=== PATIENT | female | born 1940 | race African-American/Black ===

== ENCOUNTER 2017-04-22 00:40 | Emergency (ER) | payer MEDICARE, MEDICAID ==
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
[2017-04-22] MEDS ORDERED: IPRATROPIUM/ALBUTEROL 0.5-2.5 MG/3 ML AMPUL NEB ONE (02:07)
--- NOTE | 2017-04-22 02:08 | RADIOLOGY REPORT (SQ) ---
EXAM DESCRIPTION: CHEST SINGLE VIEW COMPLETED DATE/TIME: 04/22/2017 1:49 am REASON FOR STUDY: SHORTNESS OF BREATH COMPARISON: 08/28/2016, 09/01/2014. 09/17/2015. 11/05/2013. CT, abdomen pelvis 08/30/2014. EXAM PARAMETERS: NUMBER OF VIEWS: One view. TECHNIQUE: Single frontal radiographic view of the chest acquired. RADIATION DOSE: NA LIMITATIONS: None. FINDINGS: LUNGS AND PLEURA: Moderate chronic opacity of the medial right lung base without significa nt interval change since prior radiographs from October 2013. Moderate right lung volume. Mild rig ht hemidiaphragmatic elevation. MEDIASTINUM AND HILAR STRUCTURES: No masses. Contour normal. HEART AND VASCULAR STRUCTURES: Heart normal in size. Normal vasculature. BONES: No acute findings. HARDWARE: None in the chest. OTHER: No other significant finding. IMPRESSION: No acute cardiopulmonary findings. TECHNICAL DOCUMENTATION: JOB ID: [id number]
[2017-04-22] MEDS ORDERED: PREDNISONE 20 MG TABLET PO ONE (02:35)
[2017-04-22] MEDS ORDERED: ALBUTEROL SULFATE 0.083% NEB 2.5 MG/3 ML AMPUL NEB ONE (02:35)
[2017-04-22 03:37] LABS: ABSOLUTE BASOPHILS # (AUTO) 0.1 10^3/uL (0.0-0.2); ABSOLUTE EOSINOPHILS # (AUTO) 0.7 10^3/uL (0.0-0.6); ABSOLUTE LYMPHOCYTES (AUTO) 2.1 10^3/uL (0.5-4.7); ABSOLUTE MONOCYTES (AUTO) 1.2 10^3/uL (0.1-1.4); ABSOLUTE NEUT (AUTO) 12.4 10^3/uL (1.7-8.2); BASOPHILS % (AUTO) 0.8 % (0-2); EOSINOPHILS % (AUTO) 4.2 % (0-6); HEMATOCRIT 40.4 % (36.0-47.0); HEMOGLOBIN 12.4 g/dL (12.0-15.5); HGB HCT DIFFERENCE -3.2; LYMPHOCYTES % (AUTO) 12.7 % (13-45); MEAN CORPUSCULAR HEMOGLOBIN 26.2 pg (27.0-33.4); MEAN CORPUSCULAR HGB CONC 30.8 g/dL (32.0-36.0); MEAN CORPUSCULAR VOLUME 85 fl (80-97); MONOCYTES % (AUTO) 7.2 % (3-13); RED BLOOD COUNT 4.75 10^6/uL (3.72-5.28); RED CELL DISTRIBUTION WIDTH 17.4 % (11.5-14.0); SEGMENTED NEUTROPHILS % (AUTO) 75.1 % (42-78); WHITE BLOOD COUNT 16.5 10^3/uL (4.0-10.5)
[2017-04-22 04:05] LABS: CREATINE KINASE MB 2.41 ng/mL (<4.55)
[2017-04-22 04:08] LABS: TROPONIN I 0.135 ng/mL
[2017-04-22 04:13] LABS: ALANINE AMINOTRANSFERASE 23 U/L (9-52); ALBUMIN 3.7 g/dL (3.5-5.0); ALKALINE PHOSPHATASE 100 U/L (38-126); ANION GAP 9 (5-19); ASPARTATE AMINO TRANSFERASE 25 U/L (14-36); BILIRUBIN,DIRECT 0.3 mg/dL (0.0-0.4); BILIRUBIN,TOTAL 0.3 mg/dL (0.2-1.3); BLOOD UREA NITROGEN 20 mg/dL (7-20); CARBON DIOXIDE 38 mmol/L (22-30); CHLORIDE 98 mmol/L (98-107); CREATINE KINASE 92 U/L (30-135); CREATININE RESULT 0.86 mg/dL (0.52-1.25); GLUCOSE 144 mg/dL (75-110); POTASSIUM 4.2 mmol/L (3.6-5.0); SODIUM 145.2 mmol/L (137-145); TOTAL PROTEIN 7.4 g/dL (6.3-8.2)
[2017-04-22] MEDS ORDERED: ALBUTEROL SULFATE HFA (90 MCG/PUFF) 8 GM MDI (1 MDI/ER DISP) IH PRN (04:56)
[2017-04-22 06:44] LABS: APPEARANCE,URINE SLIGHTLY-CLOUDY; BILIRUBIN,URINE NEGATIVE (NEGATIVE); CALCIUM OXALATE CRYSTALS,URINE RARE /HPF; GLUCOSE, URINE NEGATIVE (NEGATIVE); KETONES,URINE NEGATIVE (NEGATIVE); LEUKOCYTE ESTERASE,URINE NEGATIVE (NEGATIVE); NITRITE,URINE NEGATIVE (NEGATIVE); PROTEIN,URINE NEGATIVE (NEGATIVE); URINE SPECIFIC GRAVITY 1.014; UROBILINOGEN,URINE NEGATIVE mg/dL (<2.0)
[2017-04-22 07:34] VITALS: BP 141/87
--- NOTE | 2017-04-22 10:05 | EKG REPORT ---
SEVERITY:- ABNORMAL ECG - SINUS RHYTHM NONSPECIFIC IVCD WITH LAD LEFT VENTRICULAR HYPERTROPHY : Confirmed by: Tong Amaya 22-Apr-2017 10:04:46
== END 2017-04-22 07:50 | disposition home or self-care (01) ==
LOC: ER 00:40
DX: T59.811A Toxic effect of smoke, accidental (unintentional), initial encounter (principal); J70.5 Respiratory conditions due to smoke inhalation; J44.1 Chronic obstructive pulmonary disease with (acute) exacerbation; R74.8 Abnormal levels of other serum enzymes; Y93.G3 Activity, cooking and baking; Y92.009 Unspecified place in unspecified non-institutional (private) residence as the place of occurrence of the external cause; I50.9 Heart failure, unspecified; E03.9 Hypothyroidism, unspecified; I11.0 Hypertensive heart disease with heart failure; Z99.81 Dependence on supplemental oxygen; Z88.6 Allergy status to analgesic agent
CPT/HCPCS: 93005; 94640 ×2; 99285; 36415; 82553; 82550; 85025; 80053; 81001; 84484; 83880; 71010; 93010; A9270 ×3; J3490; J7512; J7620

== ENCOUNTER 2017-09-05 18:15 | Emergency (ER) | payer MEDICARE, MEDICAID ==
--- NOTE | 2017-09-05 20:54 | RADIOLOGY REPORT (SQ) ---
EXAM DESCRIPTION: CHEST SINGLE VIEW COMPLETED DATE/TIME: 09/05/2017 8:45 pm REASON FOR STUDY: shortness of breath COMPARISON: 08/28/2016 in 06/12/2014 EXAM PARAMETERS: NUMBER OF VIEWS: One view. TECHNIQUE: Single frontal radiographic view of the chest acquired. RADIATION DOSE: NA LIMITATIONS: None. FINDINGS: LUNGS AND PLEURA: Stable chronic lung change without new opacities, masses or pneumothorax . No pleural effusion. MEDIASTINUM AND HILAR STRUCTURES: No masses. Contour stable. HEART AND VASCULAR STRUCTURES: Heart stable in size. Normal vasculature. BONES: No acute findings. HARDWARE: None in the chest. OTHER: No other significant finding. IMPRESSION: NO ACUTE CARDIOPULMONARY PROCESS. NO SIGNIFICANT CHANGE FROM PRIOR STUDY. TECHNICAL DOCUMENTATION: JOB ID: [id number]
[2017-09-05 22:25] LABS: ABSOLUTE BASOPHILS # (AUTO) 0.1 10^3/uL (0.0-0.2); ABSOLUTE EOSINOPHILS # (AUTO) 0.6 10^3/uL (0.0-0.6); ABSOLUTE LYMPHOCYTES (AUTO) 1.8 10^3/uL (0.5-4.7); ABSOLUTE NEUT (AUTO) 6.9 10^3/uL (1.7-8.2); BASOPHILS % (AUTO) 0.6 % (0-2); EOSINOPHILS % (AUTO) 5.7 % (0-6); HEMATOCRIT 39.7 % (36.0-47.0); HEMOGLOBIN 12.6 g/dL (12.0-15.5); HGB HCT DIFFERENCE -1.9; LYMPHOCYTES % (AUTO) 17.6 % (13-45); MEAN CORPUSCULAR HEMOGLOBIN 27.2 pg (27.0-33.4); MEAN CORPUSCULAR HGB CONC 31.8 g/dL (32.0-36.0); MEAN CORPUSCULAR VOLUME 86 fl (80-97); MONOCYTES % (AUTO) 9.2 % (3-13); RED BLOOD COUNT 4.64 10^6/uL (3.72-5.28); RED CELL DISTRIBUTION WIDTH 16.6 % (11.5-14.0); SEGMENTED NEUTROPHILS % (AUTO) 66.9 % (42-78); WHITE BLOOD COUNT 10.4 10^3/uL (4.0-10.5)
--- NOTE | 2017-09-05 23:10 | ER Document Report ---
ED General - General Chief Complaint: Breathing Difficulty Stated Complaint: DIFFICULTY BREATHING Time Seen by Provider: 09/05/17 23:08 Notes: Patient is a pleasant 68-year-old female who has been having cough for a week. She does have history of COPD. She has history of recurrent bronchitis. She does wear 2 L of oxygen at home. She says she has some pain with coughing. No fevers. No vomiting. No diarrhea. No abdominal pain. No other complaints at this time. TRAVEL OUTSIDE OF THE [place] IN LAST 30 DAYS: No - Related Data Allergies/Adverse Reactions: acetaminophen [From Percocet] Adverse Reaction (Verified 09/05/17 18:18) oxycodone HCl [From Percocet] Adverse Reaction (Verified 09/05/17 18:18) Past Medical History - Social History Smoking Status: Former Smoker Frequency of alcohol use: None Drug Abuse: None Family History: None, CAD, COPD, DM, Hypertension, Malignancy Patient has suicidal ideation: No Patient has homicidal ideation: No - Past Medical History Cardiac Medical History: Reports: Hx Congestive Heart Failure, Hx Hypercholesterolemia, Hx Hypertension Denies: Hx Coronary Artery Disease, Hx Heart Attack Pulmonary Medical History: Reports: Hx COPD, Hx Sleep Apnea Denies: Hx Asthma, Hx Bronchitis, Hx Pneumonia, Hx Tuberculosis Neurological Medical History: Denies: Hx Cerebrovascular Accident, Hx Seizures Endocrine Medical History: Reports: Hx Hypothyroidism Renal/ Medical History: Denies: Hx Peritoneal Dialysis GI Medical History: Reports: Hx Gastroesophageal Reflux Disease Musculoskeltal Medical History: Reports Hx Arthritis, Reports Hx Gout Psychiatric Medical History: Denies: Hx Depression Past Surgical History: Reports: Hx Cholecystectomy, Hx Hysterectomy. Denies: Hx Pacemaker - Immunizations Immunizations up to date: No Hx Diphtheria, Pertussis, Tetanus Vaccination: Yes Review of Systems - Review of Systems Notes: My Normal Review Basic REVIEW OF SYSTEMS: CONSTITUTIONAL : Denies fever, chills, or sweats. EENT: Denies eye, ear, throat, or mouth pain or symptoms. Denies nasal or sinus congestion. CARDIOVASCULAR: Denies chest pain. RESPIRATORY: Coughing and some shortness of breath. GASTROINTESTINAL: Denies abdominal pain. Denies nausea, vomiting, or diarrhea. Denies constipation. Last BM: MUSCULOSKELETAL: Denies neck or back pain or joint pain or swelling. SKIN: Denies rash or skin lesions. NEUROLOGICAL: Denies altered mental status or loss of consciousness. Denies headache. Denies weakness or paralysis or loss of use of either side. Denies problems with gait or speech. Denies sensory or motor loss. ALL OTHER SYSTEMS REVIEWED AND NEGATIVE. Physical Exam - Vital signs Vitals: Temp Pulse Resp BP Pulse Ox 99.1 F 88 20 151/75 H 93 09/05/17 18:18 09/05/17 18:18 09/05/17 18:18 09/05/17 18:18 09/05/17 18:18 - Notes Notes: General Appearance: Well nourished, alert, cooperative, no acute distress, no obvious discomfort. Well-appearing. Her cough on exam. Vitals: reviewed, See vital signs table. Head: no swelling or tenderness to the head Eyes: PERRL, EOMI, Conjuctiva clear Mouth: No decreasd moisture Throat: No tonsillar inflammation, No airway obstruction, No lymphadenopathy Lungs: Some mild wheezing in the right base. Remainder of lung sandoval are completely clear. Heart: Normal rate, Regular rythm, No murmur, no rub Abdomen: Normal BS, soft, No rigidity, No abdominal tenderness, No guarding, no rebound, no abdominal masses, no organomegaly Extremities: strength 5/5 in all extremities, good pulses in all extremities, pain with range of motion of both knees. No redness or acute swelling to the knees., no edema. Skin: warm, dry, appropriate color, no rash Neuro: speech clear, oriented x 3, normal affect, responds appropriately to questions. Course - Re-evaluation Re-evalutation: 09/06/17 05:41 Patient has what appears to be bronchitis. She also complains of some chronic knee pain in both knees. She says that she has arthritis in her knees been bothering for a long time. She said that she took Tylenol at home for pain but is not helping request something a little stronger. Placed on Ultram at half dose. Also will place her on steroids for her bronchitis. I did give her magnesium and submental here and she says she feels much improved. Chest x-ray is negative for pneumonia however she does have some focal wheezes on the right base. I will therefore place her on azithromycin. I will discharge her home but encouraged her follow-up with your doctor on Friday. I encouraged her return to ER immediately if she is worsening difficulty breathing, fevers, wheezing, or she feels unwell. Patient agrees with plan will be discharged home. Dictation of this chart was performed using voice recognition software; therefore, there may be some unintended grammatical errors. - Vital Signs Vital signs: Temp Pulse Resp BP Pulse Ox 99.1 F 88 15 147/91 H 96 09/05/17 18:18 09/05/17 18:18 09/06/17 02:00 09/06/17 02:00 09/06/17 02:00 - Laboratory Result Diagrams: 09/05/17 22:07 09/05/17 23:18 Laboratory results interpreted by me: 09/05/17 09/05/17 22:07 23:18 MCHC 31.8 L RDW 16.6 H Chloride 93 L Carbon Dioxide 43 H* - EKG Interpretation by Me Additional EKG results interpreted by me: 09/05/17 23:10 EKG is reviewed and interpreted by me. EKG shows normal sinus rhythm with rate of [address] segment elevation or depression. 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 No ischemic T-wave inversions. DC interval is within normal range. QRS duration QTc intervals are prolonged. Old EKG for comparison is from April 22, 2017. Discharge - Discharge Clinical Impression: Bronchitis Knee pain, chronic Qualifiers: Laterality: bilateral Qualified Code(s): M25.561 - Pain in right knee Condition: Good Disposition: HOME, SELF-CARE Additional Instructions: BRONCHITIS WITH BRONCHOSPASM (WHEEZING): You have bronchitis with bronchospasm (wheezing). Sometimes people develop wheezing with a chest cold. This occurs either because of an underlying tendency toward asthma or because the virus itself irritates the bronchial tubes. This irritation causes cough, shortness of breath, and wheezing. Emergency treatment of bronchospasm may include adrenaline shots or bronchodilator aerosol. You may feel lightheaded and have a rapid pulse for an hour or two. Rest and get plenty of fluids. At home, we'll treat you with a bronchodilator inhaler. Corticosteroids may be required for some patients. Until you recover, avoid chemical fumes, dusts, pollens, and exercising in very cold or dry air. If you smoke, stop now! Most cases of bronchitis get better without antibiotics. We prescribe antibiotics when we believe bacteria are damaging your airways, or if there's high risk the bronchitis will worsen into pneumonia. Increase your fluid intake. A cool mist humidifier may make your lungs more comfortable. An expectorant (cough medicine that loosens phlegm) can help. Repeated episodes of bronchitis and bronchospasm may result in lung damage -- for example, chronic bronchitis, recurrent pneumonias, or emphysema. If you develop a fever, increased wheezing, chest pain, or severe shortness of breath, you should contact the doctor immediately. DECONGESTANT MEDICATION: A decongestant medicine has been prescribed. Often this medicine is combined in the same tablet with an antihistamine or expectorant. This type of medicine is helpful in treating a bad cold or sinus condition, as well as in treatment of the nasal congestion of hay fever. It is not of much benefit for lung infections. Decongestant medicines are related to stimulants. They can cause an increase in blood pressure and heart rate. Persons with heart disease and high blood pressure should not take decongestants without discussing this with the physician. If you develop palpitations, chest pain, headache, or tremors, stop the medicine and consult your physician. STEROID MEDICATION: You have been given an injection of or oral medicine of the cortisone/ steroid class. This medication is used to control inflammation or allergy. Constantine t is usually only given for a short period of time, until the acute process subsides. There are usually no side effects from short-term use of cortisone-like medications. Some persons feel an increased sense of well-being and are not sleepy at bedtime. Long-term use of cortisone medications is best avoided, unless required for a severe condition. If your condition does not remit, or relapses after the course of corticosteroid medication, you should consult your physician. ANTIBIOTIC THERAPY: You have been given an antibiotic prescription. It's important that you take all the medication, unless instructed otherwise by your physician. Failure to complete the entire course can result in relapse of your condition. Common side effects of antibiotics include nausea, intestinal cramping, or diarrhea. Women may develop vaginal yeast infections, and babies can get yeast (thrush) in the mouth following the use of antibiotics. Contact your physician if you develop significant side effects from this medication. Allergy to this antibiotic can result in hives, wheezing, faintness, or itching. If symptoms of allergy occur, stop the medication and call your doctor. AZITHROMYCIN: Azithromycin (Zithromax) is a broad spectrum antibiotic in the same class as erythromycin. It can treat a variety of bacterial infections, but is most frequently used for respiratory infections. Azithromycin is extremely long-lasting. It accumulates in body tissues and continues to kill bacteria for many days. In order to improve absorption, Azithromycin should be taken at least one hour before or two hours after a meal. It does not have the same strong tendency to upset the stomach as erythromycin and is usually very well tolerated. Patients who have had a rash or other true allergic reactions to erythromycin should not take this medication. Call if you develop gastrointestinal distress, severe diarrhea, rash, hives, itching, or shortness of breath. SMOKING: If you smoke, you should stop smoking. The tar and chemicals in cigarette smoke are harmful. Smoking has been shown to cause: emphysema chronic bronchitis lung cancer mouth and throat cancer stomach and pancreas cancer premature aging defects In addition, smoking increases ear and lung infections in children of smokers. FOLLOW-UP CARE: If you have been referred to a physician for follow-up care, call the physician s office for an appointment as you were instructed or within the next two days. If you experience worsening or a significant change in your symptoms, notify the physician immediately or return to the Emergency Department at any time for re-evaluation. Please follow up with your doctor on Friday for reevaluation. I have prescribed prednisone and tessalon perles and azithromycin for your bronchitis. If you have worsening difficulty breathing, coughing, or fevers you should return to the ER immediately. I have also prescribed ultram for your knee pain. Please only take half a tablet every 6 hours. Stop taking this medication if it makes you dizzy, sleepy, or feel unwell. Prescriptions: Tramadol HCl [Ultram 50 mg Tablet] 25 mg PO Q6HP PRN #14 tablet PRN Reason: Azithromycin 250 mg PO DAILY #4 tablet Benzonatate [Tessalon Perle 100 mg Capsule] 100 mg PO ASDIR PRN #14 cap PRN Reason: Cough Prednisone [Deltasone 20 mg Tablet] 2 tab PO DAILY 4 Days tablet
[2017-09-05] MEDS ORDERED: METHYLPREDNISOLONE INJ 125 MG/2 ML SDV IV ONE (23:26)
[2017-09-05] MEDS: MAGNESIUM SULFATE/D5W 1 GM/100 ML RTUPB IV SCH (23:45)
[2017-09-05 23:49] LABS: ALANINE AMINOTRANSFERASE 30 U/L (9-52); ALBUMIN 3.5 g/dL (3.5-5.0); ALKALINE PHOSPHATASE 104 U/L (38-126); ASPARTATE AMINO TRANSFERASE 19 U/L (14-36); BILIRUBIN,DIRECT 0.4 mg/dL (0.0-0.4); BILIRUBIN,TOTAL 0.5 mg/dL (0.2-1.3); BLOOD UREA NITROGEN 15 mg/dL (7-20); CALCIUM 10.1 mg/dL (8.4-10.2); CHLORIDE 93 mmol/L (98-107); CREATINE KINASE 44 U/L (30-135); CREATININE RESULT 0.72 mg/dL (0.52-1.25); GLUCOSE 92 mg/dL (75-110); POTASSIUM 3.9 mmol/L (3.6-5.0); SODIUM 143.8 mmol/L (137-145); TOTAL PROTEIN 6.6 g/dL (6.3-8.2)
[2017-09-05 23:57] LABS: CREATINE KINASE MB 1.06 ng/mL (<4.55)
[2017-09-05 23:59] LABS: ANION GAP 8 (5-19)
[2017-09-06 00:05] LABS: CARBON DIOXIDE 43 mmol/L (22-30)
[2017-09-06] MEDS: MAGNESIUM SULFATE/D5W 1 GM/100 ML RTUPB IV SCH (00:05)
[2017-09-06 00:06] LABS: TROPONIN I 0.113 ng/mL
[2017-09-06] MEDS ORDERED: AZITHROMYCIN 250 MG TABLET PO ONE (02:21)
[2017-09-06 02:28] VITALS: BP 147/91
--- NOTE | 2017-09-06 07:52 | EKG REPORT ---
SEVERITY:- ABNORMAL ECG - SINUS RHYTHM ATRIAL PREMATURE COMPLEX LEFT ANTERIOR FASCICULAR BLOCK PROBABLE LEFT VENTRICULAR HYPERTROPHY CONSIDER ANTERIOR INFARCT : Confirmed by: José Miguel Platt MD 06-Sep-2017 07:52:20
== END 2017-09-06 02:30 | disposition home or self-care (01) ==
LOC: ER 18:15
DX: J40 Bronchitis, not specified as acute or chronic (principal); G89.29 Other chronic pain; M25.561 Pain in right knee; E03.9 Hypothyroidism, unspecified; I50.9 Heart failure, unspecified; E78.00 Pure hypercholesterolemia, unspecified; I11.0 Hypertensive heart disease with heart failure; J44.9 Chronic obstructive pulmonary disease, unspecified; Z90.710 Acquired absence of both cervix and uterus; Z90.49 Acquired absence of other specified parts of digestive tract
CPT/HCPCS: 93005; 99285; 96375; 96365; 36415; 82553; 82550; 85025; 80053; 84484; 83880; 71010; 93010; A9270; J2930; J3475 ×2

== ENCOUNTER 2017-09-09 04:47 | Emergency (ER) | payer MEDICARE, MEDICAID ==
--- NOTE | 2017-09-09 05:13 | ER Document Report ---
ED Medical Screen (RME) - General Chief Complaint: Abdominal Pain Stated Complaint: RIGHT SIDE PAIN TRAVEL OUTSIDE OF THE [place] IN LAST 30 DAYS: No - HPI Notes: 09/09/17 05:11 Patient is a 76-year-old female who presents to the ED complaining of lower right abdominal cramping/ache 1-2 days. Patient states that she feels like she has to have a bowel movement, but has been having difficulties over the last week. Patient states that she has to push and when she does get stool out they are small, hard, and pebbly. Patient states that her last bowel movement was today. The pain does not radiate. Nothing worsens or improves her discomfort. Pt is not taking any narcotics. She has a pmh of COPD, HTN, CHF, YELITZA. Past surgical history of cholecystectomy and hysterectomy. No other concerns or complaints at this time. Otherwise, pt feels well. Denies any headache, fever, URI, sore throat, chest pain, palpitations, syncope, nausea/ vomiting/diarrhea, urinary retention, dysuria, hematuria, back pain, loss of control of bowel or bladder, numbness/tingling, saddle anesthesia, muscle paralysis/weakness, or rash. I have treated and performed a rapid initial assessment of this patient. A comprehensive ED assessment and evaluation of the patient, analysis of test results and completion of medical decision making process will be conducted by additional ED providers. - Related Data Allergies/Adverse Reactions: oxycodone HCl [From Percocet] Adverse Reaction (Verified 09/09/17 05:01) Past Medical History - Past Medical History Cardiac Medical History: Reports: Hx Congestive Heart Failure, Hx Hypercholesterolemia, Hx Hypertension Denies: Hx Coronary Artery Disease, Hx Heart Attack Pulmonary Medical History: Reports: Hx COPD, Hx Sleep Apnea Denies: Hx Asthma, Hx Bronchitis, Hx Pneumonia, Hx Tuberculosis Neurological Medical History: Denies: Hx Cerebrovascular Accident, Hx Seizures Endocrine Medical History: Reports: Hx Hypothyroidism Renal/ Medical History: Denies: Hx Peritoneal Dialysis GI Medical History: Reports: Hx Gastroesophageal Reflux Disease Musculoskeltal Medical History: Reports Hx Arthritis, Reports Hx Gout Psychiatric Medical History: Denies: Hx Depression Past Surgical History: Reports: Hx Cholecystectomy, Hx Hysterectomy. Denies: Hx Pacemaker - Immunizations Immunizations up to date: No Hx Diphtheria, Pertussis, Tetanus Vaccination: Yes Physical Exam - Vital signs Vitals: Temp Pulse Resp BP Pulse Ox 97.9 F 63 22 H 191/94 H 91 L 09/09/17 04:51 09/09/17 04:51 09/09/17 04:51 09/09/17 04:51 09/09/17 04:51 - Respiratory Respiratory status: No respiratory distress Breath sounds: Decreased air movement - Cardiovascular Rhythm: Regular Heart sounds: Normal auscultation - Abdominal Inspection: Obese Distension: No distension Bowel sounds: Normal Tenderness: Nontender. No: McBurney's point, Guarding - Extremities Ankle: Edema - 1+ b/l Course - Vital Signs Vital signs: Temp Pulse Resp BP Pulse Ox 97.9 F 63 22 H 191/94 H 91 L 09/09/17 04:51 09/09/17 04:51 09/09/17 04:51 09/09/17 04:51 09/09/17 04:51
[2017-09-09 05:40] LABS: ALANINE AMINOTRANSFERASE 25 U/L (9-52); ALBUMIN 3.8 g/dL (3.5-5.0); ALKALINE PHOSPHATASE 111 U/L (38-126); ASPARTATE AMINO TRANSFERASE 18 U/L (14-36); BILIRUBIN,DIRECT 0.3 mg/dL (0.0-0.4); BILIRUBIN,TOTAL 0.4 mg/dL (0.2-1.3); BLOOD UREA NITROGEN 22 mg/dL (7-20); CALCIUM 10.2 mg/dL (8.4-10.2); CHLORIDE 92 mmol/L (98-107); CREATININE RESULT 0.82 mg/dL (0.52-1.25); GLUCOSE 135 mg/dL (75-110); LIPASE 45.5 U/L (23-300); POTASSIUM 3.9 mmol/L (3.6-5.0); SODIUM 143.7 mmol/L (137-145); TOTAL PROTEIN 6.9 g/dL (6.3-8.2)
[2017-09-09 05:47] LABS: ANION GAP 10 (5-19)
[2017-09-09 05:49] LABS: CARBON DIOXIDE 42 mmol/L (22-30)
[2017-09-09 05:50] LABS: ABSOLUTE LYMPHOCYTES (AUTO) 1.4 10^3/uL (0.5-4.7); ABSOLUTE MONOCYTES (AUTO) 1.5 10^3/uL (0.1-1.4); ABSOLUTE NEUT (AUTO) 12.1 10^3/uL (1.7-8.2); BASOPHILS % (AUTO) 0.3 % (0-2); EOSINOPHILS % (AUTO) 0.1 % (0-6); HEMATOCRIT 38.7 % (36.0-47.0); HEMOGLOBIN 12.4 g/dL (12.0-15.5); HGB HCT DIFFERENCE -1.5; LYMPHOCYTES % (AUTO) 9.5 % (13-45); MEAN CORPUSCULAR HEMOGLOBIN 27.1 pg (27.0-33.4); MEAN CORPUSCULAR HGB CONC 32.1 g/dL (32.0-36.0); MEAN CORPUSCULAR VOLUME 84 fl (80-97); RED BLOOD COUNT 4.58 10^6/uL (3.72-5.28); RED CELL DISTRIBUTION WIDTH 16.6 % (11.5-14.0); SEGMENTED NEUTROPHILS % (AUTO) 80.1 % (42-78); WHITE BLOOD COUNT 15.1 10^3/uL (4.0-10.5)
--- NOTE | 2017-09-09 06:40 | RADIOLOGY REPORT (SQ) ---
EXAM DESCRIPTION: ACUTE ABDOMEN SERIES COMPLETED DATE/TIME: 09/09/2017 6:21 am REASON FOR STUDY: constipation COMPARISON: Chest x-ray 09/05/2017. CT abdomen and pelvis 08/30/2014. NUMBER OF VIEWS: Three views. TECHNIQUE: Frontal chest, supine abdomen and upright/decubitus abdomen radiographic images acquired. LIMITATIONS: None. FINDINGS: CHEST: Lungs clear of infiltrates. There is elevation of the right hemidiaphragm. FREE AIR: None. BOWEL GAS PATTERN: Nonobstructive pattern. No dilated loops or air fluid levels. CALCIFICATIONS: No suspicious calcifications. HARDWARE: None in the abdomen. SOFT TISSUES: No gross mass or suggestion of organomegaly. BONES: Degenerative changes in the spine . IMPRESSION: Nonobstructive bowel gas pattern. TECHNICAL DOCUMENTATION: JOB ID: [id number] [employer]- All Rights Reserved
[2017-09-09] MEDS ORDERED: MAGNESIUM CITRATE 296 ML BOTTLE PO ONE (06:50)
[2017-09-09] MEDS ORDERED: ONDANSETRON ODT 4 MG TAB (6 TAB/DSPK) PO PRN (06:50)
--- NOTE | 2017-09-09 07:12 | ER Document Report ---
ED General - General Chief Complaint: Abdominal Pain Stated Complaint: RIGHT SIDE PAIN Time Seen by Provider: 09/09/17 06:06 TRAVEL OUTSIDE OF THE [place] IN LAST 30 DAYS: No - HPI Patient complains to provider of: Right-sided abdominal pain constipation Notes: Patient coming in for evaluation of right-sided abdominal pain ongoing for the last 2 days. Denies any fevers chills nausea vomiting diarrhea. Patient states last time she had a bowel movement had hard stool. Patient is concerned that she is constipated. Patient states recently seen for bronchitis placed on antibiotics and steroids.Upon my evaluation patient points to the right flank region for her pain. Denies any dysuria denies any history of kidney stones. - Related Data Allergies/Adverse Reactions: oxycodone HCl [From Percocet] Adverse Reaction (Verified 09/09/17 05:01) Past Medical History - Social History Smoking Status: Unknown if Ever Smoked Family History: None, CAD, COPD, DM, Hypertension, Malignancy Patient has suicidal ideation: No Patient has homicidal ideation: No - Past Medical History Cardiac Medical History: Reports: Hx Congestive Heart Failure, Hx Hypercholesterolemia, Hx Hypertension Denies: Hx Coronary Artery Disease, Hx Heart Attack Pulmonary Medical History: Reports: Hx COPD, Hx Sleep Apnea Denies: Hx Asthma, Hx Bronchitis, Hx Pneumonia, Hx Tuberculosis Neurological Medical History: Denies: Hx Cerebrovascular Accident, Hx Seizures Endocrine Medical History: Reports: Hx Hypothyroidism Renal/ Medical History: Denies: Hx Peritoneal Dialysis GI Medical History: Reports: Hx Gastroesophageal Reflux Disease Musculoskeltal Medical History: Reports Hx Arthritis, Reports Hx Gout Psychiatric Medical History: Denies: Hx Depression Past Surgical History: Reports: Hx Cholecystectomy, Hx Hysterectomy. Denies: Hx Pacemaker - Immunizations Immunizations up to date: No Hx Diphtheria, Pertussis, Tetanus Vaccination: Yes Review of Systems - Review of Systems Constitutional: No symptoms reported EENT: No symptoms reported Cardiovascular: No symptoms reported Respiratory: No symptoms reported Gastrointestinal: Abdominal pain, Constipation Genitourinary: No symptoms reported Female Genitourinary: No symptoms reported Musculoskeletal: No symptoms reported Skin: No symptoms reported Hematologic/Lymphatic: No symptoms reported Neurological/Psychological: No symptoms reported -: Yes All other systems reviewed and negative Physical Exam - Vital signs Vitals: Temp Pulse Resp BP Pulse Ox 97.9 F 63 22 H 191/94 H 91 L 09/09/17 04:51 09/09/17 04:51 09/09/17 04:51 09/09/17 04:51 09/09/17 04:51 Interpretation: Normal - General General appearance: Appears well, Alert - HEENT Head: Normocephalic, Atraumatic Eyes: Normal Pupils: PERRL - Respiratory Respiratory status: No respiratory distress Chest status: Nontender Breath sounds: Normal Chest palpation: Normal - Cardiovascular Rhythm: Regular Heart sounds: Normal auscultation Murmur: No - Abdominal Inspection: Normal Distension: No distension Bowel sounds: Normal Tenderness: Nontender, Rebound. No: McBurney's point, Donnelly's sign, Guarding Organomegaly: No organomegaly - Back Back: Normal, Nontender - Extremities General upper extremity: Normal inspection, Nontender, Normal color, Normal ROM , Normal temperature General lower extremity: Normal inspection, Nontender, Normal color, Normal ROM , Normal temperature, Normal weight bearing. No: Dale's sign - Neurological Neuro grossly intact: Yes Cognition: Normal Orientation: AAOx4 [place] Coma Scale Eye Opening: Spontaneous [place] Coma Scale Verbal: Oriented [place] Coma Scale Motor: Obeys Commands [place] Coma Scale Total: 15 Speech: Normal Motor strength normal: LUE, RUE, LLE, RLE Sensory: Normal - Psychological Associated symptoms: Normal affect, Normal mood - Skin Skin Temperature: Warm Skin Moisture: Dry Skin Color: Normal Course - Re-evaluation Re-evalutation: 09/09/17 07:09 Patient has elevation in her bicarb however this looks to be chronic. Patient otherwise has no other complaints. AOX4 Patient has a history of COPD is on chronic oxygen therapy at home. Patient also was been recently started on steroids slight leukocytosis however abdominal exam is benign no right lower quadrant tenderness No right upper quadrant tenderness to palpation on examination. 09/09/17 07:11 - Vital Signs Vital signs: Temp Pulse Resp BP Pulse Ox 97.9 F 63 10 L 179/87 H 93 09/09/17 04:51 09/09/17 04:51 09/09/17 06:21 09/09/17 06:21 09/09/17 06:21 - Laboratory Result Diagrams: 09/09/17 05:20 09/09/17 05:20 Laboratory results interpreted by me: 09/09/17 09/09/17 05:20 05:20 WBC 15.1 H RDW 16.6 H Seg Neutrophils % 80.1 H Lymphocytes % 9.5 L Absolute Neutrophils 12.1 H Absolute Monocytes 1.5 H Chloride 92 L Carbon Dioxide 42 H* BUN 22 H Glucose 135 H Discharge - Discharge Clinical Impression: Constipation Qualifiers: Constipation type: unspecified constipation type Qualified Code(s): K59.00 - Constipation, unspecified Condition: Good Disposition: HOME, SELF-CARE Instructions: Abdominal Pain ([facility]), Constipation ([facility]) Additional Instructions: We will give you a bottle of mag citrate to help push just along the right side of the colon to the left side and eventually have a bowel movement. Please drink plenty water after drinking the mag citrate I would only drink half a bottle of mag citrate at this time. He may also use the Zofran provided for any nausea that may occur. Return to the ER symptoms worsen. Referrals: TIAGO JACOB MD [Primary Care Provider] - Follow up as needed
[2017-09-09 07:43] VITALS: BP 173/85
== END 2017-09-09 07:34 | disposition home or self-care (01) ==
LOC: ER 04:47
DX: K59.00 Constipation, unspecified (principal); R10.9 Unspecified abdominal pain; I10 Essential (primary) hypertension; D72.829 Elevated white blood cell count, unspecified; J44.9 Chronic obstructive pulmonary disease, unspecified; Z99.81 Dependence on supplemental oxygen; Z87.19 Personal history of other diseases of the digestive system; Z90.49 Acquired absence of other specified parts of digestive tract
CPT/HCPCS: 99284; 36415; 83690; 85025; 80053; 74022; J3490; A9270

== ENCOUNTER 2018-03-09 10:58 | Day surgery (SDC) | payer MEDICARE, MEDICAID ==
[~2018-03-09 10:58] MED LIST: PROPOFOL INJ 200 MG/20 ML VIAL IV ONE
[2018-03-09 13:26] VITALS: BP 143/87
--- NOTE | 2018-03-09 13:47 | Operative Report ---
Operative Report DATE OF SURGERY: 03/09/18 Operative Report: The risks, benefits and alternatives of the procedure including risks of bleeding, perforation requiring surgery are explained to the patient in detail and informed consent is obtained. The patient is brought back to the endoscopy suite and placed in a left, lateral decubital position. Timeout was called. Propofol medication is administered. A rectal examination is performed which did not reveal any masses, tears or fissures. An Olympus videoscope was inserted into the patient's rectum. The scope was then carefully advanced all the way to the cecum. The cecum is identified by the usual anatomical landmarks including the ileocecal valve and the appendiceal office. The scope was then pulled back via the various segments of the colon including the ascending colon, hepatic flexure, transverse colon, splenic flexure, descending colon and finally in to the rectosigmoid portions of the colon. Retroflexion maneuvers performed. Photodocumentation is obtained. Prep is good. The risks benefits and alternatives of the procedure explained to the patient in detail and informed consent is obtained.A GIF Olympus video scope was inserted into the patient's mouth and hypopharynx, the esophagus is identified intubated and insufflated, the scope was then advanced through the esophagus stomach and duodenum, retroflexion maneuver is done, the esophagus stomach and first and second portions of the duodenum examined PREOPERATIVE DIAGNOSIS: Possible GI bleeding, rectal bleeding POSTOPERATIVE DIAGNOSIS: Inflammation at the ileocecal valve status post biopsy. Internal hemorrhoids. Diverticulosis. Gastritis status post biopsy rule out Helicobacter pylori OPERATION: Colonoscopy with biopsy. EGD with biopsy SURGEON: CONSUELO NAVARRETE ANESTHESIA: LMAC TISSUE REMOVED OR ALTERED: As noted above. COMPLICATIONS: None. ESTIMATED BLOOD LOSS: None. INTRAOPERATIVE FINDINGS: As noted above. PROCEDURE: Patient tolerated procedure well. No immediate postprocedure complications are noted. Patient discharged in good condition. Discharge date 03/09/2018. Discharge diet: Regular. Discharge activity: Regular. 2-3 week follow-up to discuss findings. Patient is instructed to call the office or proceed to the emergency room should there be any further problems or questions. We will wait on pathology.
== END 2018-03-09 13:35 | disposition home or self-care (01) ==
LOC: END 10:58
PROVIDERS: ATTEND Internal Medicine Gastroenterology
PROC: 0DB68ZX Excision of Stomach, Via Natural or Artificial Opening Endoscopic, Diagnostic (ICD-10-PCS; principal; 2018-03-09 14:00)
DX: K52.9 Noninfective gastroenteritis and colitis, unspecified (principal); K57.30 Diverticulosis of large intestine without perforation or abscess without bleeding; K29.50 Unspecified chronic gastritis without bleeding; K64.8 Other hemorrhoids; K92.1 Melena; I10 Essential (primary) hypertension; J44.9 Chronic obstructive pulmonary disease, unspecified; E07.9 Disorder of thyroid, unspecified; Z79.899 Other long term (current) drug therapy; Z79.51 Long term (current) use of inhaled steroids; Z99.81 Dependence on supplemental oxygen
CPT/HCPCS: 43239; 45380; 88342 ×2; 88305 ×2; J2704; 813

== ENCOUNTER 2018-10-13 16:42 | Inpatient (IN) | payer MEDICARE, MEDICAID ==
--- NOTE | 2018-10-13 16:48 | ER Document Report ---
ED Medical Screen (RME) - General Chief Complaint: Shortness Of Breath Stated Complaint: SHORTNESS OF BREATH Time Seen by Provider: 10/13/18 16:47 Notes: Patient is a 75-year-old female with COPD, chronically on 2 L of oxygen by nasal cannula that presents to the emergency department for chief complaint of shortness of breath. Patient's been having increased shortness of breath of the last several days, with cough, using home inhalers without improvement. ROS: Other than noted above, the 12 point review of systems was reviewed with the patient and were negative, all pertinent findings are included in the HPI. PHYSICAL EXAMINATION: Vital signs reviewed. GENERAL: Elderly female, mildly increased work of breathing HEAD: Atraumatic, normocephalic. EYES: Pupils equal round extraocular movements intact, conjunctiva are normal. ENT: Nares patent NECK: Normal range of motion CV: Heart regular rate and rhythm LUNGS: Diminished lung sounds at the bases, mild increased work of breathing Musculoskeletal: Normal range of motion NEUROLOGICAL: Normal speech PSYCH: Normal mood, normal affect. MDM: Patient seen and examined for rapid initial assessment. Vital signs reviewed. A comprehensive ED assessment and evaluation of the patient, analysis of test results and completion of the medical decision making process will be conducted by additional ED providers. *Note is created using voice recognition software and may contain spelling, syntax or grammatical errors. TRAVEL OUTSIDE OF THE [place] IN LAST 30 DAYS: No - Related Data Allergies/Adverse Reactions: oxycodone HCl [From Percocet] Adverse Reaction (Verified 10/13/18 16:43) Past Medical History - Past Medical History Cardiac Medical History: Reports: Hx Congestive Heart Failure, Hx Hypercholesterolemia, Hx Hypertension Denies: Hx Coronary Artery Disease, Hx Heart Attack Pulmonary Medical History: Reports: Hx COPD, Hx Sleep Apnea Denies: Hx Asthma, Hx Bronchitis, Hx Pneumonia, Hx Tuberculosis Neurological Medical History: Denies: Hx Cerebrovascular Accident, Hx Seizures Endocrine Medical History: Reports: Hx Hypothyroidism Renal/ Medical History: Denies: Hx Peritoneal Dialysis GI Medical History: Reports: Hx Gastroesophageal Reflux Disease Musculoskeltal Medical History: Reports Hx Arthritis, Reports Hx Gout Psychiatric Medical History: Denies: Hx Depression Past Surgical History: Reports: Hx Cholecystectomy, Hx Hysterectomy. Denies: Hx Pacemaker - Immunizations Immunizations up to date: No Hx Diphtheria, Pertussis, Tetanus Vaccination: Yes Doctor's Discharge - Discharge Referrals: TIAGO JACOB MD [Primary Care Provider] - Follow up as needed
[2018-10-13] MEDS ORDERED: IPRATROPIUM/ALBUTEROL 0.5-2.5 MG/3 ML AMPUL NEB ONE (16:52)
[2018-10-13] MEDS ORDERED: METHYLPREDNISOLONE INJ 125 MG/2 ML SDV IV ONE (16:52)
[2018-10-13 17:58] LABS: ABSOLUTE BASOPHILS # (AUTO) 0.1 10^3/uL (0.0-0.2); ABSOLUTE EOSINOPHILS # (AUTO) 0.4 10^3/uL (0.0-0.6); ABSOLUTE LYMPHOCYTES (AUTO) 1.3 10^3/uL (0.5-4.7); ABSOLUTE MONOCYTES (AUTO) 0.6 10^3/uL (0.1-1.4); ABSOLUTE NEUT (AUTO) 6.6 10^3/uL (1.7-8.2); EOSINOPHILS % (AUTO) 4.2 % (0-6); HEMATOCRIT 35.2 % (36.0-47.0); HEMOGLOBIN 11.2 g/dL (12.0-15.5); LYMPHOCYTES % (AUTO) 14.7 % (13-45); MEAN CORPUSCULAR HEMOGLOBIN 27.9 pg (27.0-33.4); MEAN CORPUSCULAR HGB CONC 31.8 g/dL (32.0-36.0); MEAN CORPUSCULAR VOLUME 88 fl (80-97); MONOCYTES % (AUTO) 6.5 % (3-13); PLATELET COUNT 218 10^3/uL (150-450); RED BLOOD COUNT 4.01 10^6/uL (3.72-5.28); RED CELL DISTRIBUTION WIDTH 16.2 % (11.5-14.0); SEGMENTED NEUTROPHILS % (AUTO) 73.6 % (42-78); TOTAL CELLS COUNTED % (AUTO) 100 %
--- NOTE | 2018-10-13 17:58 | RADIOLOGY REPORT (SQ) ---
EXAM DESCRIPTION: CHEST SINGLE VIEW COMPLETED DATE/TIME: 10/13/2018 5:42 pm REASON FOR STUDY: hypoxic, short of breath COMPARISON: 09/05/2017 EXAM PARAMETERS: NUMBER OF VIEWS: One view. TECHNIQUE: Single frontal radiographic view of the chest acquired. RADIATION DOSE: NA LIMITATIONS: None. FINDINGS: LUNGS AND PLEURA: Elevated right hemidiaphragm. There is nodule like opacification just a christiano the right hemidiaphragm. This may represent the lower lobe pulmonary vascularity. MEDIASTINUM AND HILAR STRUCTURES: No masses. Contour normal. HEART AND VASCULAR STRUCTURES: Borderline cardiomegaly with no pulmonary edema. BONES: No acute findings. HARDWARE: None in the chest. OTHER: No other significant finding. IMPRESSION: Borderline heart size with no pulmonary edema. Question right lower lobe pulmonary nodu le. This may represent pulmonary vessels. TECHNICAL DOCUMENTATION: JOB ID: [id number] [email or web address]- All Rights Reserved Reading location - IP/workstation name: [email or web address]
[2018-10-13 18:20] LABS: ALANINE AMINOTRANSFERASE 12 U/L (9-52); ALBUMIN 3.6 g/dL (3.5-5.0); ALKALINE PHOSPHATASE 88 U/L (38-126); ASPARTATE AMINO TRANSFERASE 25 U/L (14-36); BILIRUBIN,DIRECT 0.4 mg/dL (0.0-0.4); BILIRUBIN,TOTAL 0.8 mg/dL (0.2-1.3); BLOOD UREA NITROGEN 19 mg/dL (7-20); CALCIUM 9.9 mg/dL (8.4-10.2); CHLORIDE 92 mmol/L (98-107); GLUCOSE 85 mg/dL (75-110); POTASSIUM 4.5 mmol/L (3.6-5.0); SODIUM 142.3 mmol/L (137-145); TOTAL PROTEIN 6.7 g/dL (6.3-8.2)
[2018-10-13 18:36] LABS: ANION GAP 5 (5-19)
[2018-10-13 18:38] LABS: CARBON DIOXIDE 45 mmol/L (22-30); TROPONIN I 0.115 ng/mL
--- NOTE | 2018-10-13 19:15 | ER Document Report ---
ED Respiratory Problem - General Chief Complaint: Shortness Of Breath Stated Complaint: SHORTNESS OF BREATH Time Seen by Provider: 10/13/18 16:47 Notes: Patient brought in by her family because she is having difficulty breathing and shortness of breath since last night. She had a cough during the night, as well. She is having dyspnea with the slightest bit of exertion. Patient has pretty severe COPD and is on oxygen 2 L at home all the time. She does not have asthma. Has had a history of congestive heart failure in the past. In addition to her cough, she is felt short of breath and difficulty breathing. Has not had a fever, however. Has not had any chest pains. PMH: Hypertension, CHF, hypothyroid. COPD. TRAVEL OUTSIDE OF THE [place] IN LAST 30 DAYS: No - Related Data Allergies/Adverse Reactions: oxycodone HCl [From Percocet] Adverse Reaction (Verified 10/13/18 16:43) Past Medical History - Social History Smoking Status: Unknown if Ever Smoked Chew tobacco use (# tins/day): No Frequency of alcohol use: None Drug Abuse: None Family History: None, Reviewed & Not Pertinent, CAD, COPD, DM, Hypertension, Malignancy Patient has suicidal ideation: No Patient has homicidal ideation: No - Past Medical History Cardiac Medical History: Reports: Hx Congestive Heart Failure, Hx Hypercholesterolemia, Hx Hypertension Pulmonary Medical History: Reports: Hx COPD - On home O2 at 2 L/min all the time., Hx Sleep Apnea Endocrine Medical History: Reports: Hx Hypothyroidism GI Medical History: Reports: Hx Gastroesophageal Reflux Disease Musculoskeletal Medical History: Reports Hx Arthritis, Reports Hx Gout Past Surgical History: Reports: Hx Cholecystectomy, Hx Hysterectomy - Immunizations Immunizations up to date: No Hx Diphtheria, Pertussis, Tetanus Vaccination: Yes Review of Systems - Review of Systems Notes: REVIEW OF SYSTEMS: CONSTITUTIONAL : Denies fever. EENT: Denies eye, ear, nose or mouth or throat pain or other symptoms. CARDIOVASCULAR: Denies chest pain. RESPIRATORY: See HPI. GASTROINTESTINAL: Denies abdominal pain or nausea, vomiting, or diarrhea. GENITOURINARY: Denies difficulty or painful urinating, urinary frequency, blood in urine. MUSCULOSKELETAL: Denies back or neck pain. Denies joint pain or swelling. SKIN: Denies rash or skin lesions. NEUROLOGICAL: Denies LOC or altered mental status. Denies headache. Denies sensory loss or motor deficits. ALL OTHER SYSTEMS REVIEWED AND NEGATIVE. Physical Exam - Vital signs Vitals: Temp Pulse Resp BP Pulse Ox 98.6 F 85 18 150/73 H 92 10/13/18 16:42 10/13/18 16:42 10/13/18 16:42 10/13/18 16:42 10/13/18 16:42 Interpretation: Normal Notes: PHYSICAL EXAMINATION: GENERAL: Well-appearing, in no acute distress. Vital signs are all essentially normal. HEAD: Atraumatic, normocephalic. EYES: Pupils equal round and reactive to light, extraocular movements intact. ENT: oropharynx clear without exudates. Moist mucous membranes. NECK: Normal range of motion, supple. LUNGS: Scattered rhonchi and wheezes in both lung sandoval bilaterally. HEART: Regular rate and rhythm without murmurs. ABDOMEN: Soft, nontender. No guarding or rebound. No masses. BACK: No tenderness throughout entire back. EXTREMITIES: Normal range of motion without pain. Trace pitting edema of the shins. No swelling or tenderness and negative Homans bilaterally. NEUROLOGICAL: Normal speech, normal gait. Normal sensory, motor, and reflex exams. Awake, alert, and oriented x3. Cranial nerves normal. PSYCH: Normal mood, normal affect. SKIN: Warm, dry, no rashes. Course - Re-evaluation Re-evalutation: 10/13/18 19:21 Patient's first troponin came back at 0.115. EKG does not show anything that looks like an acute [place]. No STEMI present. 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 Based upon the patient's not having any chest pain, I doubt this is of clinical significance. Patient's bicarbonate level is in the 40s as it has been on many occasions over the years in the past. Still, I feel the patient needs to be observed and repeat her studies as well as treat her COPD exacerbation. I called Dr. Fair, who is on-call for this patient's primary care provider, Dr. Gray and he agrees to admit the patient for observation to [facility]. - Vital Signs Vital signs: Temp Pulse Resp BP Pulse Ox 98.6 F 85 22 H 150/70 H 95 10/13/18 16:54 10/13/18 16:54 10/13/18 17:18 10/13/18 16:54 10/13/18 17:18 - Laboratory Result Diagrams: 10/13/18 17:45 10/13/18 17:45 Laboratory results interpreted by me: 10/13/18 10/13/18 17:45 17:45 Hgb 11.2 L Hct 35.2 L MCHC 31.8 L RDW 16.2 H Chloride 92 L Carbon Dioxide 45 H* - Diagnostic Test Radiology results interpreted by me: 10/13/18 19:24 Chest x-ray without evidence of heart failure or any acute infectious process. - EKG Interpretation by Me EKG shows normal: Sinus rhythm Rate: Normal Rhythm: NSR [place]/QRS: LAHB/LAFB Voltage: Consistant with LVH Critical Care Note - Critical Care Note Total time excluding time spent on procedures (mins): 30 Discharge - Discharge Clinical Impression: COPD exacerbation, COPD (chronic obstructive pulmonary disease) Condition: Stable Disposition: ADMITTED OBSERVATION Admitting Provider: [facility] Admitted: [facility] Referrals: TIAGO JACOB MD [NO LOCAL MD] - Follow up as needed
[2018-10-13] MEDS ORDERED: IPRATROPIUM/ALBUTEROL 0.5-2.5 MG/3 ML AMPUL NEB PRN (19:57)
--- NOTE | 2018-10-13 21:10 | EKG REPORT ---
SEVERITY:- ABNORMAL ECG - SINUS RHYTHM LEFT ANTERIOR FASCICULAR BLOCK PROBABLE LEFT VENTRICULAR HYPERTROPHY CONSIDER ANTERIOR INFARCT : Confirmed by: Sheila Florentino MD 13-Oct-2018 21:09:24
[2018-10-13 22:54] LABS: CREATINE KINASE MB 1.19 ng/mL (<4.55)
[2018-10-13 23:01] LABS: TROPONIN I 0.121 ng/mL
[2018-10-13 23:08] LABS: ARTERIAL BLOOD BASE EXCESS 6.2 mmol/L; ARTERIAL BLOOD O2 SATURATION 74.1 % (94-98); ARTERIAL BLOOD PCO2 66.4 mmHg (35-45); ARTERIAL BLOOD PH 7.33 (7.35-7.45); ARTERIAL BLOOD PO2 43.4 mmHg (80-100)
[2018-10-13 23:09] LABS: ARTERIAL BLOOD FIO2 28%
[2018-10-14] MEDS: METHYLPREDNISOLONE INJ 125 MG/2 ML SDV IV SCH ×3 (02:14→18:03)
[2018-10-14 05:39] LABS: CREATINE KINASE MB 1.4 ng/mL (<4.55)
[2018-10-14 05:43] LABS: TROPONIN I 0.168 ng/mL
[2018-10-14 09:54] LABS: CREATINE KINASE MB 1.81 ng/mL (<4.55)
[2018-10-14 10:00] LABS: TROPONIN I 0.223 ng/mL
[2018-10-14] MEDS ORDERED: (PENDING PHARMACY ID) (Pravastatin Sodium [Pravastatin Sodium] 20 MG) PO SCH (10:00)
[2018-10-14] MEDS: VERAPAMIL HCL 240 MG TABLET.SA PO SCH (10:01)
[2018-10-14] MEDS: FUROSEMIDE 40 MG TABLET PO SCH (10:01)
--- NOTE | 2018-10-14 14:19 | RADIOLOGY REPORT (SQ) ---
EXAM DESCRIPTION: CTA CHEST COMPLETED DATE/TIME: 10/14/2018 1:47 pm REASON FOR STUDY: evaluate for PE COMPARISON: None. TECHNIQUE: CT scan of the chest performed using helical scanning technique with dynamic intravenous contrast injection. Images reviewed with lung, soft tissue and bone windows. Reconstructed coronal and sagittal MPR images reviewed. Additional 3 dimensional post-processing performed to develop Maximal Intensity Projection images (CT P). All images stored on PACS. All CT scanners at this facility use dose modulation, iterative reconstruction, and/or weight based d osing when appropriate to reduce radiation dose to as low as reasonably achievable (ALARA). [facility]: Dose Right [facility]: CareDose [facility]: Dose Right [facility]: Teradose 4D [facility]: LOOKSIMA CONTRAST TYPE AND DOSE: contrast/concentration: Isovue 350.00 mg/ml; Total Contrast Delivered: 75.0 ml; Total Saline Delivered: 110.0 ml Contrast bolus optimized for the pulmonary arteries. Not diagnostic for the aorta. RENAL FUNCTION: BUN 19 creatinine 0.64 RADIATION DOSE: CT Rad equipment meets quality standard of care and radiation dose reduction techniq ues were employed. CTDIvol: 13.2 - 15.4 mGy. DLP: 588 mGy-cm. . LIMITATIONS: None. FINDINGS: LUNGS AND PLEURA: No masses, infiltrates, or pneumothorax. No pleural effusions or pleura l calcifications. AORTA AND GREAT VESSELS: No aneurysm. Contrast bolus not optimized for the aorta. HEART: No pericardial effusion. Moderate to marked coronary artery calcifications. PULMONARY ARTERIES: No emboli visualized in the main pulmonary arteries or the segmental branches. HILAR AND MEDIASTINAL STRUCTURES: No identified masses or abnormal nodes. HARDWARE: None in the chest. UPPER ABDOMEN: No significant findings. Limited exam. THYROID AND OTHER SOFT TISSUES: No masses. No adenopathy. BONES: No acute or significant finding. 3D MIPS: Confirm above findings. OTHER: None. IMPRESSION: No evidence of pulmonary embolus. Coronary atherosclerosis. COMMENT: Quality ID # [id number]: Final reports with documentation of one or more dose reduction techniques (e.g., Automated exposure control, adjustment of the mA and/or kV according to patient size, use of iterative reconstruction technique) TECHNICAL DOCUMENTATION: JOB ID: [id number] [employer]- All Rights Reserved Reading location - IP/workstation name: [email or web address]
--- NOTE | 2018-10-14 15:48 | EKG REPORT ---
SEVERITY:- ABNORMAL ECG - SINUS RHYTHM VENTRICULAR PREMATURE COMPLEX NONSPECIFIC IVCD WITH LAD LEFT VENTRICULAR HYPERTROPHY PROBABLE ANTERIOR INFARCT : Confirmed by: Sheila Florentino MD 14-Oct-2018 15:48:12
[2018-10-14 16:29] LABS: CREATINE KINASE MB 2.24 ng/mL (<4.55)
[2018-10-14 16:49] LABS: TROPONIN I 0.236 ng/mL
[2018-10-14] MEDS ORDERED: ASPIRIN 81 MG TABLET, CHEWABLE PO ONE (17:04)
[2018-10-14 17:39] LABS: FREE T3 1.92 pg/mL (2.77-5.27); FREE T4 (FREE THYROXINE) 1.13 ng/dL (0.78-2.19)
[2018-10-14 17:52] LABS: THYROID STIMULATING HORMONE 0.3 uIU/mL (0.47-4.68)
[2018-10-14] MEDS: NITROGLYCERIN 15 MG (0.6 MG/1 HR) PATCH.TD24 TD SCH (18:03)
[2018-10-14] MEDS: ENOXAPARIN SODIUM INJ 100 MG/1 ML DISP.SYRIN SUBCUT SCH (18:03)
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
--- NOTE | 2018-10-14 19:24 | PDOC PROGRESS REPORT ---
Subjective Progress Note for:: 10/14/18 Subjective:: Patient denied any chest pain. She remain on supplemental oxygen via nasal cannula and reported ambulatory in her room without any significant symptom deterioration. Her Troponin level did revealed upward trend so far to 0.168. Reason For Visit: EXACERBATED COPD Physical Exam Vital Signs: Temp Pulse Resp BP Pulse Ox 98.3 F 67 16 143/68 H 92 10/14/18 15:27 10/14/18 15:27 10/14/18 15:27 10/14/18 15:27 10/14/18 15:27 Intake & Output 10/13/18 10/14/18 10/15/18 06:59 06:59 06:59 Intake Total 633 Balance 633 Weight 104.7 kg General appearance: PRESENT: mild distress - on supplemental oxygen via nasal cannula., obese Head exam: PRESENT: atraumatic, normocephalic Eye exam: PRESENT: conjunctiva pink, EOMI, PERRLA. ABSENT: scleral icterus Ear exam: PRESENT: normal external ear exam Mouth exam: PRESENT: moist Respiratory exam: PRESENT: clear to auscultation phililp Cardiovascular exam: PRESENT: RRR. ABSENT: diastolic murmur, rubs, systolic murmur Vascular exam: PRESENT: normal capillary refill. ABSENT: pallor GI/Abdominal exam: PRESENT: normal bowel sounds, soft. ABSENT: distended, guarding, mass, organolmegaly, rebound, tenderness Extremities exam: ABSENT: pedal edema Musculoskeletal exam: PRESENT: normal inspection Neurological exam: PRESENT: alert, awake, oriented to person, oriented to place , oriented to time, oriented to situation, CN II-XII grossly intact. ABSENT: motor sensory deficit Psychiatric exam: PRESENT: appropriate affect, normal mood. ABSENT: homicidal ideation, suicidal ideation Skin exam: PRESENT: dry, intact, warm. ABSENT: cyanosis, rash Results Laboratory Results: 10/13/18 10/14/18 21:45 15:21 Carbonic Acid 2.00 H HCO3/H2CO3 Ratio 17:1 ABG pH 7.33 L ABG pCO2 66.4 H ABG pO2 43.4 L ABG HCO3 34.0 H ABG O2 Saturation 74.1 L ABG Base Excess 6.2 FiO2 28% TSH 0.30 L Free T4 1.13 Free T3 pg/mL 1.92 L 10/13/18 10/13/1818 20:25 22:15 04:09 Creatine Kinase 36 CK-MB (CK-2) Cancelled 1.19 Troponin I Cancelled 0.121 10/14/18 10/14/18 10/14/18 04:09 08:43 08:43 Creatine Kinase 39 CK-MB (CK-2) 1.40 1.81 Troponin I 0.168 0.223 10/14/18 10/14/18 15:21 15:21 Creatine Kinase 41 CK-MB (CK-2) 2.24 Troponin I 0.236 EKG Comments: Severity: Abnormal ECG Sinus rhythm, Ventricular premature complex, Nonspecific IVCD with LAD, Left ventricular hypertrophy, probable anterior infarct. Impressions: Chest X-Ray 10/13/18 16:48 IMPRESSION: Borderline heart size with no pulmonary edema. Question right lower lobe pulmonary nodule. This may represent pulmonary vessels. Chest/Abdomen CTA 10/14/18 00:00 IMPRESSION: No evidence of pulmonary embolus. Coronary atherosclerosis. Assessment & Plan - Diagnosis (1) COPD with acute exacerbation Is this a current diagnosis for this admission?: Yes Plan: Continue bronchodilators therapy. Decrease IV Solu Medrol to 80 mg q8 hours. Maintain on supplemental oxygen via nasal cannula to maintain oxygenation level at or above 92%. (2) NSTEMI (non-ST elevated myocardial infarction) Is this a current diagnosis for this admission?: Yes Plan: Start on Lovenox therapy, Nitroglycerin, and Aspirin therapy. Maintain on lipid lowering medication therapy. cardiology consultant input appreciated. (3) CHF (congestive heart failure) Is this a current diagnosis for this admission?: Yes Plan: Continue current medication management. (4) Hypertension Qualifiers: Hypertension type: essential hypertension Qualified Code(s): I10 - Essential (primary) hypertension Is this a current diagnosis for this admission?: Yes Plan: Continue current medication management. (5) HLD (hyperlipidemia) Qualifiers: Hyperlipidemia type: unspecified Qualified Code(s): E78.5 - Hyperlipidemia , unspecified Is this a current diagnosis for this admission?: Yes Plan: Continue current medication management. (6) Hypothyroidism Qualifiers: Hypothyroidism type: unspecified Qualified Code(s): E03.9 - Hypothyroidism , unspecified Is this a current diagnosis for this admission?: Yes Plan: Continue current medication management. (7) GERD (gastroesophageal reflux disease) Qualifiers: Esophagitis presence: without esophagitis Qualified Code(s): K21.9 - Gastro -esophageal reflux disease without esophagitis Is this a current diagnosis for this admission?: Yes Plan: Continue current medication management. (8) YELITZA (obstructive sleep apnea) Is this a current diagnosis for this admission?: Yes Plan: Continue current medication management. She will need outpatient sleep study upon discharge. - Time Time Spent with patient: 25-34 minutes Medications reviewed and adjusted accordingly: Yes Anticipated discharge: Home with Homehealth Within: Other - Inpatient Certification Based on my medical assessment, after consideration of the patient's comorbidities, presenting symptoms, or acuity I expect that the services needed warrant INPATIENT care.: Yes I certify that my determination is in accordance with my understanding of Medicare's requirements for reasonable and necessary INPATIENT services [42 CFR 412.3e].: Yes Medical Necessity: Need Close Monitoring Due to Risk of Patient Decompensation, Need For IV Fluids, Need For Continuous Telemetry Monitoring, Need for Nebulizer Therapy and Monitoring of Response, Risk of Complication if Not Cared For in Hospital 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
[2018-10-14 19:56] LABS: CREATINE KINASE MB 1.71 ng/mL (<4.55); TROPONIN I 0.26 ng/mL
[2018-10-14] MEDS: SIMVASTATIN 10 MG TABLET PO SCH (21:24)
[2018-10-14] MEDS: MONTELUKAST SODIUM 10 MG TABLET PO SCH (21:29)
[2018-10-15] MEDS: METHYLPREDNISOLONE INJ 125 MG/2 ML SDV IV SCH ×3 (02:38→17:29)
[2018-10-15 02:47] LABS: APPEARANCE,URINE SLIGHTLY-CLOUDY; BILIRUBIN,URINE NEGATIVE (NEGATIVE); COLOR,URINE YELLOW; GLUCOSE, URINE NEGATIVE (NEGATIVE); KETONES,URINE NEGATIVE (NEGATIVE); LEUKOCYTE ESTERASE,URINE NEGATIVE (NEGATIVE); NITRITE,URINE NEGATIVE (NEGATIVE); PROTEIN,URINE NEGATIVE (NEGATIVE); URINE SPECIFIC GRAVITY 1.024; UROBILINOGEN,URINE NEGATIVE mg/dL (<2.0)
[2018-10-15 03:12] LABS: CREATINE KINASE MB 1.79 ng/mL (<4.55)
[2018-10-15 03:16] LABS: TROPONIN I 0.275 ng/mL
[2018-10-15] MEDS: NITROGLYCERIN 50 MG/D5W 250 ML IV PRN (05:07)
[2018-10-15] MEDS: ENOXAPARIN SODIUM INJ 100 MG/1 ML DISP.SYRIN SUBCUT SCH ×2 (05:24→17:29)
[2018-10-15] MEDS: LEVOTHYROXINE SODIUM 0.088 MG TABLET PO SCH (05:25)
[2018-10-15] MEDS ORDERED: VERAPAMIL HCL 240 MG PO SCH (08:00)
--- NOTE | 2018-10-15 09:40 | EKG REPORT ---
SEVERITY:- ABNORMAL ECG - SINUS RHYTHM NONSPECIFIC IVCD WITH LAD LEFT VENTRICULAR HYPERTROPHY PROBABLE ANTERIOR INFARCT, ACUTE : Confirmed by: Sheila Florentino MD 15-Oct-2018 09:40:12
--- NOTE | 2018-10-15 09:40 | EKG REPORT ---
SEVERITY:- ABNORMAL ECG - SINUS RHYTHM LEFT ANTERIOR FASCICULAR BLOCK PROBABLE LEFT VENTRICULAR HYPERTROPHY CONSIDER ANTERIOR INFARCT : Confirmed by: Sheila Florentino MD 15-Oct-2018 09:40:17
[2018-10-15 09:49] LABS: CREATINE KINASE MB 1.54 ng/mL (<4.55); TROPONIN I 0.23 ng/mL
[2018-10-15] MEDS: VERAPAMIL HCL 240 MG TABLET.SA PO SCH (10:30)
[2018-10-15] MEDS: ASPIRIN 81 MG TABLET, CHEWABLE PO SCH (10:30)
[2018-10-15] MEDS: FUROSEMIDE 40 MG TABLET PO SCH (10:30)
[2018-10-15] MEDS: NITROGLYCERIN 15 MG (0.6 MG/1 HR) PATCH.TD24 TD SCH (10:31)
[2018-10-15 17:41] LABS: CREATINE KINASE MB 1.32 ng/mL (<4.55)
[2018-10-15 17:46] LABS: TROPONIN I 0.192 ng/mL
[2018-10-15] MEDS: ACETAMINOPHEN 325 MG TABLET PO PRN ×2 (18:40→22:46)
[2018-10-15] MEDS: SIMVASTATIN 10 MG TABLET PO SCH (21:33)
[2018-10-15] MEDS: MONTELUKAST SODIUM 10 MG TABLET PO SCH (21:33)
--- NOTE | 2018-10-15 21:38 | Progress Note ---
Provider Note Provider Note: CARDIOLOGY PROGRESS NOTES by Dr. Sheila Florentino on 10/15/2018. OBJECTIVE: The patient last night had shortness of breath after walking back from the bathroom. She was also diaphoretic. With the EKG showing recent anterior AL, and with the patient's shortness of breath, although without chest pain or discomfort, but with diaphoresis, Virgin stable O2 saturations at 97% , her topical nitrates was discontinued and the patient was started on IV nitroglycerin. At present denies any chest pain or discomfort. There is no PND orthopnea. Her shortness of breath is much improved. There is no arrhythmias seen on the monitor. Her blood pressure is well controlled. She has mild pedal edema. The patient states that the leg edema is more when she hangs her foot down and the edema is actually less when she wakes up in the morning. Hence this is secondary mostly due to venous insufficiency. She denies any palpitations. There is no arrhythmia seen on the monitor. In spite of the patient having no anginal symptoms. Her repeat EKG done today suggest recent anterior myocardial infarction. The patient's troponin I which peaked at 0.275 is now trending down. In view of the patient's lack of symptoms,, and the patient not being a diabetic. And this T of the chest showing no pulmonary emboli, and moderate to severe coronary artery calcifications, would recommend that the patient undergo her cardiac catheterization, since the patient is not a very good candidate for a stress test. The patient denies wheezing cough or sputum production. There is no hemoptysis. PHYSICAL EXAMINATION: Patient is moderately obese. At present in no acute distress. She is well-groomed. Selected Entries 10/15/18 15:28 Temperature 98.6 F Temperature Oral Source Pulse Rate 68 Respiratory 16 Rate Blood Pressure 124/89 H Blood Pressure 100 Mean BP Location Right Wrist BP Position Supine O2 Sat by Pulse 96 Oximetry Oxygen Flow 3.00 Rate Oxygen Delivery Nasal Cannula Method HEAD: Is atraumatic normocephalic. EYES: Pupils are equal round regular and reactive to light accommodation. Extraocular movements are normal. There is no clinical pallor. There is no scleral icterus. ENT: Is negative. NECK: Is supple. There is no JVD. Carotids are equal there is no bruit. There is no lymphadenopathy. There is no goiter. There is no accessory muscle respiration in use. LUNGS: There is diminished air entry and prolonged expiration. There is no chest wall tenderness. On percussion there is hyperresonance. There is no rhonchi rales or wheezing. HEART S1-S2 is heard there is no S3 gallop there is no S4 gallop there is systolic murmur left sternal border and apex there is no rub abdomen: Is slightly obese nontender there is no hepato-splenomegaly. Bowel sounds are well heard. Extremities: Femorals are diminished. There is no femoral bruits. Leg pulses are diminished. There is mild to trace to mild pedal edema bilaterally. There is no cellulitis or DVT. There is no calf tenderness. There is no clubbing or cyanosis. There is no calf tenderness. CREDIT RISK MANAGER: The patient is conscious awake alert oriented x3 with no focal deficits. PSYCHIATRIC: The patient judgment and insight are intact her affect is normal. 10/14/18 10/15/18 10/15/18 19:20 02:38 02:38 Creatine Kinase 26 L CK-MB (CK-2) 1.71 1.79 Troponin I 0.260 0.275 Stool Occult Blood 10/15/18 10/15/18 10/15/18 08:35 08:35 10:58 Creatine Kinase 27 L CK-MB (CK-2) 1.54 Troponin I 0.230 Stool Occult Blood NEGATIVE 10/15/18 10/15/18 17:00 17:00 Creatine Kinase 26 L CK-MB (CK-2) 1.32 Troponin I 0.192 Stool Occult Blood EKG: Shows sinus rhythm. Left axis deviation. Nonspecific IVCD. Recent anterior wall AL. IMPRESSION/RECOMMENDATION: 1. NON-ST elevation AL: Although the patient is asymptomatic the patient's troponin I is has elevated in the non-ST AL range, and there are EKG changes. The patient last night was started on IV nitroglycerin drip. We will continue this. Continue aspirin. Note that the patient stool occult blood is negative. We will continue full dose Lovenox for another 24 hours. Continue verapamil since the patient COPD will avoid beta-blockers at present. But if the echo shows a depressed LV ejection fraction then will switch onto Toprol-XL.. Will check an echo in the a.m. We will continue to closely monitor patient,. Discussed cardiac catheterization with the patient and patient's daughter. They want it done at [facility] and not here or in [facility]. Since this is a holiday weekend, will set up transfer for on Friday or Friday. 2. Most likely has significant coronary artery disease, with moderate to severe coronary artery calcifications by CT angiogram. 3. Hypertension: Blood pressure well controlled 4. COPD: At present no acute exacerbation. Continue nasal oxygen and anti- COPD treatment. 5. Hypothyroidism.: Continue thyroid replacement. . REMOTE history of smoking elation. This is the reason the patient is now having COPD with dependency on home oxygen. Reviewed medication adjusted. Discussed with Dr. Fair discussed with the patient patient daughter. Medical decision making is of high complexity. Note 40 minutes spent on this patient with more than 50% of time spent in direct patient care. Will follow with you
[2018-10-16] MEDS: METHYLPREDNISOLONE INJ 125 MG/2 ML SDV IV SCH ×3 (01:52→18:05)
[2018-10-16 03:24] LABS: APPEARANCE,URINE SLIGHTLY-CLOUDY; BILIRUBIN,URINE NEGATIVE (NEGATIVE); COLOR,URINE STRAW; GLUCOSE, URINE NEGATIVE (NEGATIVE); KETONES,URINE NEGATIVE (NEGATIVE); LEUKOCYTE ESTERASE,URINE NEGATIVE (NEGATIVE); NITRITE,URINE NEGATIVE (NEGATIVE); PROTEIN,URINE NEGATIVE (NEGATIVE); URINE SPECIFIC GRAVITY 1.011; UROBILINOGEN,URINE NEGATIVE mg/dL (<2.0)
[2018-10-16] MEDS: ENOXAPARIN SODIUM INJ 100 MG/1 ML DISP.SYRIN SUBCUT SCH (05:03)
[2018-10-16] MEDS: LEVOTHYROXINE SODIUM 0.088 MG TABLET PO SCH (05:03)
[2018-10-16] MEDS: NITROGLYCERIN 50 MG/D5W 250 ML IV PRN (05:05)
[2018-10-16 05:31] LABS: HEMATOCRIT 33.6 % (36.0-47.0); HEMOGLOBIN 10.8 g/dL (12.0-15.5); MEAN CORPUSCULAR HEMOGLOBIN 27.6 pg (27.0-33.4); MEAN CORPUSCULAR HGB CONC 32.3 g/dL (32.0-36.0); MEAN CORPUSCULAR VOLUME 85 fl (80-97); PLATELET COUNT 187 10^3/uL (150-450); RED BLOOD COUNT 3.93 10^6/uL (3.72-5.28); RED CELL DISTRIBUTION WIDTH 16.3 % (11.5-14.0); WHITE BLOOD COUNT 10.4 10^3/uL (4.0-10.5)
[2018-10-16] MEDS: VERAPAMIL HCL 240 MG TABLET.SA PO SCH (09:59)
[2018-10-16] MEDS: ASPIRIN 81 MG TABLET, CHEWABLE PO SCH (09:59)
[2018-10-16] MEDS: FUROSEMIDE 40 MG TABLET PO SCH (09:59)
--- NOTE | 2018-10-16 15:34 | PDOC PROGRESS REPORT ---
Subjective Progress Note for:: 10/16/18 Subjective:: Patient is currently doing well Patient was admitted from the shortness of the breath and a COPD and elevated troponin Patient seen by the cardiology and plan to schedule the cardiac catheter Friday Reason For Visit: NSTEMI, EXACERBATED COPD Physical Exam Vital Signs: Temp Pulse Resp BP Pulse Ox 98.4 F 76 19 149/88 H 95 10/16/18 11:48 10/16/18 14:00 10/16/18 11:48 10/16/18 11:48 10/16/18 11:48 Intake & Output 10/15/18 10/16/18 10/17/18 06:59 06:59 06:59 Intake Total 833 1048 189 Output Total 600 800 Balance 233 1048 -611 Weight 105.2 kg 107 kg General appearance: PRESENT: no acute distress, well-developed, well-nourished Head exam: PRESENT: atraumatic, normocephalic Eye exam: PRESENT: conjunctiva pink, EOMI, PERRLA. ABSENT: scleral icterus Ear exam: PRESENT: normal external ear exam Mouth exam: PRESENT: moist, tongue midline Neck exam: PRESENT: full ROM. ABSENT: carotid bruit, JVD, lymphadenopathy, thyromegaly Respiratory exam: PRESENT: clear to auscultation phillip Cardiovascular exam: PRESENT: RRR. ABSENT: diastolic murmur, rubs, systolic murmur Pulses: PRESENT: normal dorsalis pedis pul, +2 pedal pulses bilateral Vascular exam: PRESENT: normal capillary refill GI/Abdominal exam: PRESENT: normal bowel sounds, soft. ABSENT: distended, guarding, mass, organolmegaly, rebound, tenderness Rectal exam: PRESENT: deferred Extremities exam: ABSENT: pedal edema Musculoskeletal exam: PRESENT: ambulatory Neurological exam: PRESENT: alert, awake, oriented to person, oriented to place , oriented to time, oriented to situation, CN II-XII grossly intact. ABSENT: motor sensory deficit Psychiatric exam: PRESENT: appropriate affect, normal mood. ABSENT: homicidal ideation, suicidal ideation Skin exam: PRESENT: dry, intact, warm. ABSENT: cyanosis, rash Results Laboratory Results: 10/16/18 04:37 10/15/18 10/16/18 10/16/18 10:58 03:00 04:37 WBC 10.4 RBC 3.93 Hgb 10.8 L Hct 33.6 L MCV 85 MCH 27.6 MCHC 32.3 RDW 16.3 H Plt Count 187 Urine Color STRAW Urine Appearance SLIGHTLY-CLOUDY Urine pH 6.0 Ur Specific Wilburn 1.011 Urine Protein NEGATIVE Urine Glucose (UA) NEGATIVE Urine Ketones NEGATIVE Urine Blood NEGATIVE Urine Nitrite NEGATIVE Ur Leukocyte Esterase NEGATIVE Urine WBC (Auto) 3 Urine RBC (Auto) 0 Stool Occult Blood NEGATIVE 10/16/18 08:25 WBC RBC Hgb Hct MCV MCH MCHC RDW Plt Count Urine Color Urine Appearance Urine pH Ur Specific Wilburn Urine Protein Urine Glucose (UA) Urine Ketones Urine Blood Urine Nitrite Ur Leukocyte Esterase Urine WBC (Auto) Urine RBC (Auto) Stool Occult Blood NEGATIVE 10/13/18 10/13/18 10/14/18 20:25 22:15 04:09 Creatine Kinase 36 CK-MB (CK-2) Cancelled 1.19 Troponin I Cancelled 0.121 10/14/18 10/14/18 10/14/18 04:09 08:43 08:43 Creatine Kinase 39 CK-MB (CK-2) 1.40 1.81 Troponin I 0.168 0.223 10/14/18 10/14/18 10/14/18 15:21 15:21 19:20 Creatine Kinase 41 39 CK-MB (CK-2) 2.24 Troponin I 0.236 10/14/18 10/15/18 10/15/18 19:20 02:38 02:38 Creatine Kinase 26 L CK-MB (CK-2) 1.71 1.79 Troponin I 0.260 0.275 10/15/18 10/15/18 10/15/18 08:35 08:35 17:00 Creatine Kinase 27 L 26 L CK-MB (CK-2) 1.54 Troponin I 0.230 10/15/18 17:00 Creatine Kinase CK-MB (CK-2) 1.32 Troponin I 0.192 Impressions: Chest X-Ray 10/13/18 16:48 IMPRESSION: Borderline heart size with no pulmonary edema. Question right lower lobe pulmonary nodule. This may represent pulmonary vessels. Chest/Abdomen CTA 10/14/18 00:00 IMPRESSION: No evidence of pulmonary embolus. Coronary atherosclerosis. Assessment & Plan - Diagnosis (1) COPD (chronic obstructive pulmonary disease) Is this a current diagnosis for this admission?: Yes (2) GERD (gastroesophageal reflux disease) Qualifiers: Esophagitis presence: without esophagitis Qualified Code(s): K21.9 - Gastro -esophageal reflux disease without esophagitis Is this a current diagnosis for this admission?: Yes (3) HLD (hyperlipidemia) Qualifiers: Hyperlipidemia type: unspecified Qualified Code(s): E78.5 - Hyperlipidemia , unspecified Is this a current diagnosis for this admission?: Yes (4) NSTEMI (non-ST elevated myocardial infarction) Is this a current diagnosis for this admission?: Yes (5) YELITZA (obstructive sleep apnea) Is this a current diagnosis for this admission?: Yes (6) CHF (congestive heart failure) Is this a current diagnosis for this admission?: Yes (7) Hypertension Qualifiers: Hypertension type: essential hypertension Qualified Code(s): I10 - Essential (primary) hypertension Is this a current diagnosis for this admission?: Yes - Time Time Spent with patient: 15-24 minutes Medications reviewed and adjusted accordingly: Yes Anticipated discharge: Tertiary Hospital Within: Other - Inpatient Certification Based on my medical assessment, after consideration of the patient's comorbidities, presenting symptoms, or acuity I expect that the services needed warrant INPATIENT care.: Yes I certify that my determination is in accordance with my understanding of Medicare's requirements for reasonable and necessary INPATIENT services [42 CFR 412.3e].: Yes Medical Necessity: Significant Comorbidiites Make Outpatient Treatment Too Risky Post 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
[2018-10-16] MEDS: RANOLAZINE 500 MG TAB.SR.12H PO SCH (16:07)
[2018-10-16] MEDS: NITROGLYCERIN 15 MG (0.6 MG/1 HR) PATCH.TD24 TD SCH (16:07)
--- NOTE | 2018-10-16 18:40 | PDOC PROGRESS REPORT ---
Subjective Progress Note for:: 10/15/18 Subjective:: Patient reported right sided facial pain but denied any chest pain or difficulty with breathing. She remain on supplemental oxygen via nasal cannula. Her Troponin level is trending downward on IV nitroglycerin infusion. Reason For Visit: EXACERBATED COPD Physical Exam Vital Signs: Temp Pulse Resp BP Pulse Ox 98.8 F 70 20 140/64 H 99 10/15/18 19:35 10/15/18 19:35 10/15/18 19:35 10/15/18 19:35 10/15/18 19:35 Intake & Output 10/14/18 10/15/18 10/16/18 06:59 06:59 06:59 Intake Total 833 852 Output Total 600 Balance 233 852 Weight 104.7 kg 105.2 kg Physical Exam: General appearance: PRESENT: mild distress - on supplemental oxygen via nasal cannula., obese Head exam: PRESENT: atraumatic, normocephalic Eye exam: PRESENT: conjunctiva pink, EOMI, PERRLA. ABSENT: scleral icterus Ear exam: PRESENT: normal external ear exam Mouth exam: PRESENT: moist Respiratory exam: PRESENT: clear to auscultation phillip Cardiovascular exam: PRESENT: RRR. ABSENT: diastolic murmur, rubs, systolic murmur Vascular exam: PRESENT: normal capillary refill. ABSENT: pallor GI/Abdominal exam: PRESENT: normal bowel sounds, soft. ABSENT: distended, guarding, mass, organomegaly, rebound, tenderness Extremities exam: ABSENT: pedal edema Musculoskeletal exam: PRESENT: normal inspection Neurological exam: PRESENT: alert, awake, oriented to person, oriented to place , oriented to time, oriented to situation, CN II-XII grossly intact. ABSENT: motor sensory deficit Psychiatric exam: PRESENT: appropriate affect, normal mood. ABSENT: homicidal ideation, suicidal ideation Skin exam: PRESENT: dry, intact, warm. ABSENT: cyanosis, rash Results Laboratory Results: 10/15/18 10/15/18 02:20 10:58 Urine Color YELLOW Urine Appearance SLIGHTLY-CLOUDY Urine pH 6.0 Ur Specific Leslie 1.024 Urine Protein NEGATIVE Urine Glucose (UA) NEGATIVE Urine Ketones NEGATIVE Urine Blood LARGE H Urine Nitrite NEGATIVE Ur Leukocyte Esterase NEGATIVE Urine WBC (Auto) 23 Urine RBC (Auto) 76 Stool Occult Blood NEGATIVE 10/13/18 10/13/18 10/14/18 20:25 22:15 04:09 Creatine Kinase 36 CK-MB (CK-2) Cancelled 1.19 Troponin I Cancelled 0.121 10/14/18 10/14/18 10/14/18 04:09 08:43 08:43 Creatine Kinase 39 CK-MB (CK-2) 1.40 1.81 Troponin I 0.168 0.223 10/14/18 10/14/18 10/14/18 15:21 15:21 19:20 Creatine Kinase 41 39 CK-MB (CK-2) 2.24 Troponin I 0.236 10/14/18 10/15/18 10/15/18 19:20 02:38 02:38 Creatine Kinase 26 L CK-MB (CK-2) 1.71 1.79 Troponin I 0.260 0.275 10/15/18 10/15/18 10/15/18 08:35 08:35 17:00 Creatine Kinase 27 L 26 L CK-MB (CK-2) 1.54 Troponin I 0.230 10/15/18 17:00 Creatine Kinase CK-MB (CK-2) 1.32 Troponin I 0.192 Impressions: Chest X-Ray 10/13/18 16:48 IMPRESSION: Borderline heart size with no pulmonary edema. Question right lower lobe pulmonary nodule. This may represent pulmonary vessels. Chest/Abdomen CTA 10/14/18 00:00 IMPRESSION: No evidence of pulmonary embolus. Coronary atherosclerosis. Assessment & Plan - Diagnosis (1) COPD with acute exacerbation Is this a current diagnosis for this admission?: Yes (2) NSTEMI (non-ST elevated myocardial infarction) Is this a current diagnosis for this admission?: Yes (3) CHF (congestive heart failure) Is this a current diagnosis for this admission?: Yes (4) Hypertension Qualifiers: Hypertension type: essential hypertension Qualified Code(s): I10 - Essential (primary) hypertension Is this a current diagnosis for this admission?: Yes (5) HLD (hyperlipidemia) Qualifiers: Hyperlipidemia type: unspecified Qualified Code(s): E78.5 - Hyperlipidemia , unspecified Is this a current diagnosis for this admission?: Yes (6) Hypothyroidism Qualifiers: Hypothyroidism type: unspecified Qualified Code(s): E03.9 - Hypothyroidism , unspecified Is this a current diagnosis for this admission?: Yes (7) GERD (gastroesophageal reflux disease) Qualifiers: Esophagitis presence: without esophagitis Qualified Code(s): K21.9 - Gastro -esophageal reflux disease without esophagitis Is this a current diagnosis for this admission?: Yes (8) YELITZA (obstructive sleep apnea) Is this a current diagnosis for this admission?: Yes - Time Time Spent with patient: 25-34 minutes Medications reviewed and adjusted accordingly: Yes Anticipated discharge: Tertiary Hospital Within: Other - Inpatient Certification Based on my medical assessment, after consideration of the patient's comorbidities, presenting symptoms, or acuity I expect that the services needed warrant INPATIENT care.: Yes I certify that my determination is in accordance with my understanding of Medicare's requirements for reasonable and necessary INPATIENT services [42 CFR 412.3e].: Yes Medical Necessity: Need Close Monitoring Due to Risk of Patient Decompensation, Need For IV Fluids, Need For Continuous Telemetry Monitoring, Need for Nebulizer Therapy and Monitoring of Response, Risk of Complication if Not Cared For in Hospital Post Hospital Care: D/C or Transfer Summary - Plan Summary Plan Summary: Continue on IV Nitroglycerin therapy as well as all other current medication management. Use Tylenol 650 mg po [id number] prn for possible nitroglycerin infusion induced headache. Follow up cardiac enzymes trend. Possible transfer to [facility] as per radio operator ground recommendations for possible cardiac catheterization and angioplasty intervention.
--- NOTE | 2018-10-16 19:19 | EKG REPORT ---
SEVERITY:- ABNORMAL ECG - SINUS RHYTHM LEFT ANTERIOR FASCICULAR BLOCK PROBABLE LEFT VENTRICULAR HYPERTROPHY CONSIDER ANTERIOR INFARCT : Confirmed by: Sheila Florentino MD 16-Oct-2018 19:18:10
--- NOTE | 2018-10-16 20:12 | Progress Note ---
Provider Note Provider Note: CARDIOLOGY PROGRESS NOTES by Dr. Sheila Florentino on 10/16/2018.. OBJECTIVE: The patient denies any chest pain or discomfort. The patient denies any shortness of breath. There is no PND or orthopnea. There is no arrhythmias seen on the monitor. She has trace to mild leg edema. There is no TIA or CVA symptoms. There is no dizziness near syncope or syncope. Physical EXAMINATION: The patient is moderately obese. She is well-groomed. She is in no acute distress. Selected Entries 10/16/18 11:48 Temperature 98.4 F Temperature Oral Source Pulse Rate 70 Respiratory 19 Rate Blood Pressure 149/88 H Blood Pressure 108 Mean BP Location Right Arm BP Position Prone O2 Sat by Pulse 95 Oximetry Oxygen Flow 3.50 Rate Oxygen Delivery Nasal Cannula Method HEAD: Is atraumatic normocephalic. EYES: Pupils are equal round regular and reactive to light accommodation. Extraocular movements are normal. There is no clinical pallor. There is no scleral icterus. ENT: Is negative. NECK: Is supple. There is no JVD. Carotids are equal there is no bruit. There is no lymphadenopathy. There is no goiter. There is no accessory muscle respiration in use. LUNGS: There is diminished air entry and prolonged expiration. There is no chest wall tenderness. On percussion there is hyperresonance. There is no rhonchi rales or wheezing. HEART S1-S2 is heard there is no S3 gallop there is no S4 gallop there is systolic murmur left sternal border and apex there is no rub abdomen: Is slightly obese nontender there is no hepato-splenomegaly. Bowel sounds are well heard. Extremities: Femorals are diminished. There is no femoral bruits. Leg pulses are diminished. There is mild to trace to mild pedal edema bilaterally. There is no cellulitis or DVT. There is no calf tenderness. There is no clubbing or cyanosis. There is no calf tenderness. 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 PSYCHIATRIC: The patient judgment and insight are intact her affect is normal. Blood Pressure 124/89 H Blood Pressure 100 Mean BP Location Right Wrist BP Position Supine O2 Sat by Pulse 96 Oximetry Oxygen Flow 3.00 Rate Oxygen Delivery Nasal Cannula Method HEAD: Is atraumatic normocephalic. EYES: Pupils are equal round regular and reactive to light accommodation. Extraocular movements are normal. There is no clinical pallor. There is no scleral icterus. ENT: Is negative. NECK: Is supple. There is no JVD. Carotids are equal there is no bruit. There is no lymphadenopathy. There is no goiter. There is no accessory muscle respiration in use. LUNGS: There is diminished air entry and prolonged expiration. There is no chest wall tenderness. On percussion there is hyperresonance. There is no rhonchi rales or wheezing. HEART S1-S2 is heard there is no S3 gallop there is no S4 gallop there is systolic murmur left sternal border and apex there is no rub abdomen: Is slightly obese nontender there is no hepato-splenomegaly. Bowel sounds are well heard. Extremities: Femorals are diminished. There is no femoral bruits. Leg pulses are diminished. There is mild to trace to mild pedal edema bilaterally. There is no cellulitis or DVT. There is no calf tenderness. There is no clubbing or cyanosis. There is no calf tenderness. 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 PSYCHIATRIC: The patient judgment and insight are intact her affect is normal. 10/15/18 10/15/18 10/15/18 02:38 08:35 08:35 Creatine Kinase 27 L CK-MB (CK-2) 1.79 1.54 Troponin I 0.275 0.230 10/15/18 10/15/18 10/16/18 17:00 17:00 15:30 Creatine Kinase 26 L CK-MB (CK-2) 1.32 Troponin I 0.192 0.186 EKG: Shows sinus rhythm. Left axis deviation. Nonspecific IVCD. Recent anterior wall OR. IMPRESSION/RECOMMENDATION: 1. NON-ST elevation OR: Although the patient is asymptomatic the patient's troponin I is down. There are no arrhythmias and no evidence of congestive heart failure. The patient has received more than 48 hours of Lovenox treatment. We will stop the patient's Lovenox. Continue the patient on aspirin , and also start the patient on Brilinta 60 mg p.o. every 12 hours. We will also stop the IV nitroglycerin, and transition the patient to topical Nitropatch. Also will add Ranexa. We will continue to closely monitor patient, . Discussed cardiac catheterization with the patient and patient's daughter. They want it done at [facility] and not here or in [facility]. Since this is a holiday weekend, will set up transfer for on Friday or Friday. The patient is aware of the increased risk of bleeding with aspirin and Brilinta. 2. Most likely has significant coronary artery disease, with moderate to severe coronary artery calcifications by CT angiogram. 3. Hypertension: Blood pressure well controlled 4. COPD: At present no acute exacerbation. Continue nasal oxygen and anti- COPD treatment. 5. Hypothyroidism.: Continue thyroid replacement. 6. REMOTE history of smoking inhalation. This is the reason the patient is now having COPD with dependency on home oxygen. Reviewed medication, and adjusted. Discussed with Dr. Gray, covering for Dr. Fair. Discussed with the patient . Medical decision making is of high complexity. Note 40 minutes spent on 10/16/18 10/16/18 04:37 15:30 WBC 10.4 Hgb 10.8 L Hct 33.6 L Plt Count 187 Troponin I 0.186 IMPRESSION/RECOMMENDATION: 1. NON-ST elevation OR: Although the patient is asymptomatic the patient's troponin I is has elevated in the non-ST OR range, and there are EKG changes. The patient last night was started on IV nitroglycerin drip. We will continue this. Continue aspirin. Note that the patient stool occult blood is negative. We will continue full dose Lovenox for another 24 hours. Continue verapamil since the patient COPD will avoid beta-blockers at present. But if the echo shows a depressed LV ejection fraction then will switch onto Toprol-XL.. Will check an echo in the a.m. We will continue to closely monitor patient,. Discussed cardiac catheterization with the patient and patient's daughter. They want it done at [facility] and not here or in [facility]. Since this is a holiday weekend, will set up transfer for on Friday or Friday. 2. Most likely has significant coronary artery disease, with moderate to severe coronary artery calcifications by CT angiogram. 3. Hypertension: Blood pressure well controlled 4. COPD: At present no acute exacerbation. Continue nasal oxygen and anti- COPD treatment. 5. Hypothyroidism.: Continue thyroid replacement. . REMOTE history of smoking elation. This is the reason the patient is now having COPD with dependency on home oxygen. Reviewed medication adjusted. Discussed with Dr. Fair discussed with the patient patient daughter. Medical decision making is of high complexity. Note 40 minutes spent on this patient with more than 50% of time spent in direct patient care. Will follow with you.
[2018-10-16] MEDS: SIMVASTATIN 10 MG TABLET PO SCH (21:04)
[2018-10-16] MEDS: MONTELUKAST SODIUM 10 MG TABLET PO SCH (21:04)
[2018-10-17 01:25] LABS: APPEARANCE,URINE CLEAR; BILIRUBIN,URINE NEGATIVE (NEGATIVE); COLOR,URINE YELLOW; GLUCOSE, URINE NEGATIVE (NEGATIVE); KETONES,URINE NEGATIVE (NEGATIVE); LEUKOCYTE ESTERASE,URINE NEGATIVE (NEGATIVE); NITRITE,URINE NEGATIVE (NEGATIVE); PROTEIN,URINE NEGATIVE (NEGATIVE); URINE SPECIFIC GRAVITY 1.016; UROBILINOGEN,URINE NEGATIVE mg/dL (<2.0)
[2018-10-17] MEDS: METHYLPREDNISOLONE INJ 125 MG/2 ML SDV IV SCH ×3 (02:48→17:20)
[2018-10-17] MEDS: LEVOTHYROXINE SODIUM 0.088 MG TABLET PO SCH (05:43)
[2018-10-17] MEDS: ACETAMINOPHEN 325 MG TABLET PO PRN (05:43)
[2018-10-17] MEDS: RANOLAZINE 500 MG TAB.SR.12H PO SCH ×2 (05:44→17:20)
--- NOTE | 2018-10-17 08:56 | PDOC PROGRESS REPORT ---
Subjective Progress Note for:: 10/17/18 Subjective:: Patient is currently doing well Patient was admitted from the shortness of the breath and a COPD and elevated troponin Patient seen by the cardiology and plan to schedule the cardiac catheter Friday Reason For Visit: NSTEMI, EXACERBATED COPD Physical Exam Vital Signs: Temp Pulse Resp BP Pulse Ox 98.2 F 61 20 139/68 H 97 10/17/18 07:22 10/17/18 07:22 10/17/18 07:22 10/17/18 07:22 10/17/18 07:22 Intake & Output 10/16/18 10/17/18 10/18/18 06:59 06:59 06:59 Intake Total 1048 964 Output Total 1350 Balance 1048 -386 Weight 107 kg 108.3 kg General appearance: PRESENT: no acute distress, well-developed, well-nourished Head exam: PRESENT: atraumatic, normocephalic Eye exam: PRESENT: conjunctiva pink, EOMI, PERRLA. ABSENT: scleral icterus Ear exam: PRESENT: normal external ear exam Mouth exam: PRESENT: moist, tongue midline Neck exam: PRESENT: full ROM. ABSENT: carotid bruit, JVD, lymphadenopathy, thyromegaly Respiratory exam: PRESENT: clear to auscultation phillip Cardiovascular exam: PRESENT: RRR. ABSENT: diastolic murmur, rubs, systolic murmur Pulses: PRESENT: normal dorsalis pedis pul, +2 pedal pulses bilateral Vascular exam: PRESENT: normal capillary refill GI/Abdominal exam: PRESENT: normal bowel sounds, soft. ABSENT: distended, guarding, mass, organolmegaly, rebound, tenderness Rectal exam: PRESENT: deferred Neurological exam: PRESENT: alert, awake, oriented to person, oriented to place , oriented to time, oriented to situation, CN II-XII grossly intact. ABSENT: motor sensory deficit Psychiatric exam: PRESENT: appropriate affect, normal mood. ABSENT: homicidal ideation, suicidal ideation Skin exam: PRESENT: dry, intact, warm. ABSENT: cyanosis, rash Results Laboratory Results: 10/16/18 04:37 10/17/18 00:35 Urine Color YELLOW Urine Appearance CLEAR Urine pH 6.0 Ur Specific [place] 1.016 Urine Protein NEGATIVE Urine Glucose (UA) NEGATIVE Urine Ketones NEGATIVE Urine Blood SMALL H Urine Nitrite NEGATIVE Ur Leukocyte Esterase NEGATIVE Urine WBC (Auto) 7 Urine RBC (Auto) 19 10/13/18 10/13/18 10/14/18 20:25 22:15 04:09 Creatine Kinase 36 CK-MB (CK-2) Cancelled 1.19 Troponin I Cancelled 0.121 10/14/18 10/14/18 10/14/18 04:09 08:43 08:43 Creatine Kinase 39 CK-MB (CK-2) 1.40 1.81 Troponin I 0.168 0.223 10/14/18 10/14/18 10/14/18 15:21 15:21 19:20 Creatine Kinase 41 39 CK-MB (CK-2) 2.24 Troponin I 0.236 10/14/18 10/15/18 10/15/18 19:20 02:38 02:38 Creatine Kinase 26 L CK-MB (CK-2) 1.71 1.79 Troponin I 0.260 0.275 10/15/18 10/15/18 10/15/18 08:35 08:35 17:00 Creatine Kinase 27 L 26 L CK-MB (CK-2) 1.54 Troponin I 0.230 10/15/18 10/16/18 17:00 15:30 Creatine Kinase CK-MB (CK-2) 1.32 Troponin I 0.192 0.186 Impressions: Chest X-Ray 10/13/18 16:48 IMPRESSION: Borderline heart size with no pulmonary edema. Question right lower lobe pulmonary nodule. This may represent pulmonary vessels. Chest/Abdomen CTA 10/14/18 00:00 IMPRESSION: No evidence of pulmonary embolus. Coronary atherosclerosis. Assessment & Plan - Diagnosis (1) COPD (chronic obstructive pulmonary disease) Is this a current diagnosis for this admission?: Yes (2) GERD (gastroesophageal reflux disease) Qualifiers: Esophagitis presence: without esophagitis Qualified Code(s): K21.9 - Gastro -esophageal reflux disease without esophagitis Is this a current diagnosis for this admission?: Yes (3) HLD (hyperlipidemia) Qualifiers: Hyperlipidemia type: unspecified Qualified Code(s): E78.5 - Hyperlipidemia , unspecified Is this a current diagnosis for this admission?: Yes (4) NSTEMI (non-ST elevated myocardial infarction) Is this a current diagnosis for this admission?: Yes (5) YELITZA (obstructive sleep apnea) Is this a current diagnosis for this admission?: Yes (6) CHF (congestive heart failure) Is this a current diagnosis for this admission?: Yes (7) Hypertension Qualifiers: Hypertension type: essential hypertension Qualified Code(s): I10 - Essential (primary) hypertension Is this a current diagnosis for this admission?: Yes - Time Time Spent with patient: 15-24 minutes Medications reviewed and adjusted accordingly: Yes Anticipated discharge: [facility] Within: Other - Inpatient Certification Based on my medical assessment, after consideration of the patient's comorbidities, presenting symptoms, or acuity I expect that the services needed warrant INPATIENT care.: Yes I certify that my determination is in accordance with my understanding of Medicare's requirements for reasonable and necessary INPATIENT services [42 CFR 412.3e].: Yes Medical Necessity: Significant Comorbidiites Make Outpatient Treatment Too Risky 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
[2018-10-17] MEDS: FUROSEMIDE 40 MG TABLET PO SCH (09:23)
[2018-10-17] MEDS: ASPIRIN 81 MG TABLET, CHEWABLE PO SCH (09:23)
[2018-10-17] MEDS: VERAPAMIL HCL 240 MG TABLET.SA PO SCH (09:23)
[2018-10-17] MEDS: NITROGLYCERIN 15 MG (0.6 MG/1 HR) PATCH.TD24 TD SCH (09:23)
[2018-10-17] MEDS: ENOXAPARIN SODIUM INJ 40 MG/0.4 ML DISP.SYRIN SUBCUT SCH (09:24)
--- NOTE | 2018-10-17 14:33 | Progress Note ---
Provider Note Provider Note: Cardiology progress notes by Dr. Sheila Florentino on 10/17/2018. SUBJECTIVE: The patient denies any chest pain or discomfort. There is some degree of orthopnea. There is no PND. She has trace to mild leg edema. There is no arrhythmias seen on the monitor. The patient has no anginal symptoms. There is no palpitations, dizziness, near-syncope, or syncope. There is no TIA CVA symptoms. PHYSICAL EXAMINATION: The patient is moderately obese. She is in no acute distress, and she is well-groomed. Selected Entries 10/17/18 07:22 Temperature 98.2 F Temperature Oral Source Pulse Rate 61 Respiratory 20 Rate Blood Pressure 139/68 H Blood Pressure 91 Mean BP Location Left Arm BP Position Supine O2 Sat by Pulse 97 Oximetry Oxygen Flow 3.00 Rate Oxygen Delivery Nasal Cannula HEAD: Is atraumatic normocephalic. EYES: Pupils are equal round regular and reactive to light accommodation. Extraocular movements are normal. There is no clinical pallor. There is no scleral icterus. ENT: Is negative. NECK: Is supple. There is no JVD. Carotids are equal there is no bruit. There is no lymphadenopathy. There is no goiter. There is no accessory muscle respiration in use. LUNGS: There is diminished air entry and prolonged expiration. There is no chest wall tenderness. On percussion there is hyperresonance. There is no rhonchi rales or wheezing. HEART S1-S2 is heard there is no S3 gallop there is no S4 gallop there is systolic murmur left sternal border and apex there is no rub abdomen: Is slightly obese nontender there is no hepato-splenomegaly. Bowel sounds are well heard. Extremities: Femorals are diminished. There is no femoral bruits. Leg pulses are diminished. There is mild to trace to mild pedal edema bilaterally. There is no cellulitis or DVT. There is no calf tenderness. There is no clubbing or cyanosis. There is no calf tenderness. 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 PSYCHIATRIC: The patient judgment and insight are intact her affect is normal. 10/15/18 10/16/18 10/16/18 17:00 08:25 15:30 CK-MB (CK-2) 1.32 Troponin I 0.192 0.186 Stool Occult Blood NEGATIVE The patient's echocardiogram is a suboptimal study. There seems to be normal left ventricular wall thickness and wall motion and ejection fraction. There is mild mitral regurgitation. There is mild probably moderate tricuspid regurgitation, with severely severely increased RVSP. Hence the patient has severe pulmonary hypertension. There is mild right ventricular hypertrophy, and enlarged right ventricle, and enlarged right atrium. IMPRESSION/RECOMMENDATION: 1. NON-ST elevation IA: Although the patient is asymptomatic the patient's troponin I is down. There are no arrhythmias and no evidence of congestive heart failure. The patient has received more than 48 hours of Lovenox treatment. We will stop the patient's Lovenox. Continue the patient on aspirin , and also start the patient on Brilinta 90 mg p.o. every 12 hours. We will also stop the IV nitroglycerin, and transition the patient to topical Nitropatch. Also will add Ranexa. We will continue to closely monitor patient, . Discussed cardiac catheterization with the patient and patient's daughter. They want it done at [facility] and not here or in [facility]. Since this is a holiday weekend, will set up transfer for on Friday or Friday. The patient is aware of the increased risk of bleeding with aspirin and Brilinta. 2. Most likely has significant coronary artery disease, with moderate to severe coronary artery calcifications by CT angiogram. 3. Hypertension: Blood pressure well controlled 4. COPD: At present no acute exacerbation. Continue nasal oxygen and anti- COPD treatment. 5. Hypothyroidism.: Continue thyroid replacement. 6. REMOTE history of smoking inhalation. This is the reason the patient is now having COPD with dependency on home oxygen. 7. Severe pulmonary hypertension by echo. This has been discussed with the patient, and Dr. Gray covering Dr. Fair. Medications have been reviewed. Medical decision making is still of high complexity. 40 minutes spent on this patient more than 50% of time spent in direct patient care. We will follow with you. Will discuss with [facility] cardiology, [place], tomorrow morning.
--- NOTE | 2018-10-17 18:43 | XCELERA REPORT ---
[address] [address] Transthoracic Echocardiogram Report Name: MAURICIO SINGH Age: 77 yrs Gender: Female : 1940 Patient Status: Inpatient Patient Location: [address] [place] [address] Study Date: 10/17/2018 10:34 AM Procedure: A two-dimensional transthoracic echocardiogram with color flow Doppler was performed. The study was technically difficult with many images being suboptimal in quality. The study was technically limited with all images being suboptimal in quality. Reason For Study: shortness of breath, non ST elevation DE History: shortness of breath, non ST elevation DE. Ordering Physician: SHEILA BARROW Performed By: Brea Rios Interpretation Summary The left ventricle is normal in size. There is moderate concentric left ventricular hypertrophy. LV EF is 65% Left ventricular systolic function is normal. Doppler measurements suggest impaired left ventricular relaxation, which is associated with grade I/IV or mild diastolic dysfunction The left ventricular wall motion is normal. There is no thrombus. The right ventricle is mild to moderately dilated. There is mild to moderate right ventricular hypertrophy. The right ventricular systolic function is normal. The right atrium is normal. The left atrium is mildly dilated. There is no evidence of mitral valve prolapse. There is no mitral valve stenosis. There is no aortic valvular vegetation. There is no aortic valve stenosis There is no LVOT obstruction. No aortic regurgitation is present. There is no tricuspid stenosis. Not a god interogation of the tricuspid valve.There is probably mild TR.In one view the RVSP seems to be 70 to 75 mm of Hg , wiyh RA mean of 5 to 10.Hence severe pulmonary hypertension. There is no pericardial effusion. MMode/2D Measurements & Calculations RVDd: 4.5 cm LVIDd: 4.3 cm FS: 36.6 % Ao root diam: 2.1 cm IVSd: 1.6 cm LVIDs: 2.8 cm EDV(Teich): 84.9 ml Ao root area: 3.5 cm2 LVPWd: 1.6 cm ESV(Teich): 28.3 ml EF(Teich): 66.6 % LVOT diam: 1.3 cm LVOT area: 1.3 cm2 Doppler Measurements & Calculations MV E max jose guadalupe: MV dec slope: Ao V2 max: LV V1 max P.9 cm/sec 137.0 cm/sec 4.3 mmHg MV A max jose guadalupe: 334.1 cm/sec2 Ao max PG: LV V1 max: 67.5 cm/sec MV dec time: 0.17 sec7.5 mmHg 102.7 cm/sec MV E/A: 0.83 FABI(V,D): 0.94 cm2 PA V2 max: TR max jose guadalupe: 101.4 cm/sec 403.3 cm/sec PA max P.4 mmHg TR max P.0 mmHg Left Ventricle The left ventricle is normal in size. There is moderate concentric left ventricular hypertrophy. LV EF is 65%. Left ventricular systolic function is normal. Doppler measurements suggest impaired left ventricular relaxation, which is associated with grade I/IV or mild diastolic dysfunction. The left ventricular wall motion is normal. There is no thrombus. Right Ventricle The right ventricle is mild to moderately dilated. There is mild to moderate right ventricular hypertrophy. The right ventricular systolic function is normal. Atria The right atrium is normal. The left atrium is mildly dilated. Mitral Valve There is no evidence of mitral valve prolapse. There is no vegetation seen on the mitral valve. There is no mitral valve stenosis. There is a trace amount of mitral regurgitation. Aortic Valve There is no aortic valvular vegetation. There is no aortic valve stenosis. There is no LVOT obstruction. No aortic regurgitation is present. Tricuspid Valve There is no tricuspid stenosis. Not a god interogation of the tricuspid valve.There is probably mild TR.In one view the RVSP seems to be 70 to 75 mm of Hg , wiyh RA mean of 5 to 10.Hence severe pulmonary hypertension. Pulmonic Valve The pulmonic valve is not well visualized. Great Vessels The aortic root is not well visualized. Effusions There is no pericardial effusion. : SHEILA BARROW > Sheila Barrow
[2018-10-17] MEDS: MONTELUKAST SODIUM 10 MG TABLET PO SCH (21:12)
[2018-10-17] MEDS: SIMVASTATIN 10 MG TABLET PO SCH (21:12)
[2018-10-17] MEDS: TICAGRELOR 90 MG TABLET PO SCH (21:12)
[2018-10-18] MEDS: METHYLPREDNISOLONE INJ 125 MG/2 ML SDV IV SCH ×3 (03:20→17:22)
[2018-10-18] MEDS: RANOLAZINE 500 MG TAB.SR.12H PO SCH ×2 (05:35→17:23)
[2018-10-18] MEDS: LEVOTHYROXINE SODIUM 0.088 MG TABLET PO SCH (05:35)
--- NOTE | 2018-10-18 08:28 | PDOC TRANSFER SUMMARY ---
General Admission Date/PCP: 10/13/18 19:41 TARYN GARCIA MD Transfer Date: 10/18/18 Accepting Facility: [facility] - Transfer Diagnosis (1) COPD (chronic obstructive pulmonary disease) Is this a current diagnosis for this admission?: Yes Diagnosis Summary: Currently all stable (2) GERD (gastroesophageal reflux disease) Is this a current diagnosis for this admission?: Yes Diagnosis Summary: Continues to current medications (3) HLD (hyperlipidemia) Is this a current diagnosis for this admission?: Yes (4) NSTEMI (non-ST elevated myocardial infarction) Is this a current diagnosis for this admission?: Yes Diagnosis Summary: As per financial coordinator patient states he transferred to the cardiac cath (5) YELITZA (obstructive sleep apnea) Is this a current diagnosis for this admission?: Yes Diagnosis Summary: Continues to use a CPAP (6) CHF (congestive heart failure) Is this a current diagnosis for this admission?: Yes Diagnosis Summary: Currently on stable (7) Hypertension Is this a current diagnosis for this admission?: Yes Diagnosis Summary: Currently all stable - Transfer Medications Home Medications: Diclofenac Sodium [Voltaren] 4 gm TP QID 03/09/18 Furosemide [Lasix] 40 mg PO DAILY 03/09/18 Levothyroxine Sodium 88 mcg PO DAILY 03/09/18 Montelukast Sodium 10 mg PO DAILY 03/09/18 Pravastatin Sodium 20 mg PO DAILY 03/09/18 Verapamil HCl [Verapamil Sr] 240 mg PO QAM 03/09/18 Transfer Medications: Current Medications Acetaminophen (Tylenol 325 Mg Tablet) 650 mg PO Q4HP PRN PRN Reason: FOR HEADACHE OR PAIN Stop: 11/14/18 18:25 Last Admin: 10/17/18 05:43 Dose: 650 mg Albuterol/Ipratropium (Duoneb 3 Ml Ampul) 3 ml NEB RTQ4HP PRN PRN Reason: SHORTNESS OF BREATH Stop: 11/12/18 19:56 Last Admin: 10/15/18 13:57 Dose: 3 ml Aspirin (Aspirin 81 Mg Chewable Tablet) 81 mg PO DAILY [facility] Stop: 11/14/18 09:59 Last Admin: 10/17/18 09:23 Dose: 81 mg Enoxaparin Sodium (Lovenox Inj 40 Mg/0.4 Ml Disp.Syrin) 40 mg SUBCUT DAILY [facility] Stop: 11/16/18 09:59 Last Admin: 10/17/18 09:24 Dose: 40 mg Furosemide (Lasix 40 Mg Tablet) 40 mg PO DAILY [facility] Stop: 11/13/18 09:59 Last Admin: 10/17/18 09:23 Dose: 40 mg Levothyroxine Sodium (Synthroid 0.088 Mg Tablet) 0.088 mg PO Q6AM [facility] Stop: 11/14/18 05:59 Last Admin: 10/18/18 05:35 Dose: 0.088 mg Methylprednisolone Sodium Succinate (Solu-Medrol Inj/Pf 125 Mg/2 Ml Sdv) 125 mg IV Q8A [facility] Stop: 11/13/18 01:59 Last Admin: 10/18/18 03:20 Dose: 125 mg Montelukast Sodium (Singulair 10 Mg Tablet) 10 mg PO QHS [facility] Stop: 11/13/18 21:59 Last Admin: 10/17/18 21:12 Dose: 10 mg Nitroglycerin (Nitro-Dur 15 Mg (0.6 Mg/1 Hr) Transderm Patch) 1 each TD DAILY [facility] Stop: 11/15/18 15:29 Last Admin: 10/17/18 09:23 Dose: 1 each Ranolazine (Ranexa 500 Mg Tab.Sr) 500 mg PO Q12A [facility] Stop: 11/15/18 15:29 Last Admin: 10/18/18 05:35 Dose: 500 mg Simvastatin (Zocor 10 Mg Tablet) 10 mg PO QHS [facility] Stop: 11/13/18 21:59 Last Admin: 10/17/18 21:12 Dose: 10 mg Ticagrelor (Brilinta 90 Mg Tablet) 90 mg PO Q12 [facility] Stop: 11/16/18 21:59 Last Admin: 10/17/18 21:12 Dose: 90 mg Verapamil HCl (Calan Sr 240 Mg Tablet.Sa) 240 mg PO DAILY [facility] Stop: 11/13/18 09:59 Last Admin: 10/17/18 09:23 Dose: 240 mg - Allergies Allergies/Adverse Reactions: oxycodone HCl [From Percocet] Adverse Reaction (Verified 10/13/18 16:43) Hospital Course Hospital Course: This is a 77-year-old female with a significant history of COPD oxygen dependent history of the congestive heart failure hypertension hyperlipidemia and obstructive sleep apnea came to the [facility] the complaint was shortness of the breath and chest pain initial workup patient's diagnosed with a non-ST [place] patient start with the medical management at this point patient's currently denied any chest pain but patient is still short of breath and at this point the financial coordinator suggest the patient's need a further cardiac catheter evaluation is to rule out any coronary obstructions and patient is transferred to the tertiary Medical Center She is otherwise doing well today denies any chest pain all other medical problems of the baseline Physical Exam Vital Signs: Temp Pulse Resp BP Pulse Ox 98.7 F 61 22 H 128/58 H 100 10/18/18 07:34 10/18/18 07:34 10/18/18 07:34 10/18/18 07:34 10/18/18 07:34 Intake & Output 10/17/18 10/18/18 10/19/18 06:59 06:59 06:59 Intake Total 964 1438 Output Total 1350 1900 Balance -386 -462 Weight 108.3 kg 106 kg General appearance: PRESENT: no acute distress, well-developed, well-nourished Head exam: PRESENT: atraumatic, normocephalic Eye exam: PRESENT: conjunctiva pink, EOMI, PERRLA. ABSENT: scleral icterus Ear exam: PRESENT: normal external ear exam Mouth exam: PRESENT: moist, tongue midline Neck exam: ABSENT: carotid bruit, JVD, lymphadenopathy, thyromegaly Respiratory exam: PRESENT: clear to auscultation phillip. ABSENT: rales, rhonchi, wheezes Cardiovascular exam: PRESENT: RRR. ABSENT: diastolic murmur, rubs, systolic murmur Pulses: PRESENT: normal dorsalis pedis pul Vascular exam: PRESENT: normal capillary refill GI/Abdominal exam: PRESENT: normal bowel sounds, soft. ABSENT: distended, guarding, mass, organolmegaly, rebound, tenderness Rectal exam: PRESENT: deferred Extremities exam: PRESENT: full ROM. ABSENT: calf tenderness, clubbing, pedal edema Neurological exam: PRESENT: alert, awake, oriented to person, oriented to place , oriented to time, oriented to situation, CN II-XII grossly intact. ABSENT: motor sensory deficit Psychiatric exam: PRESENT: appropriate affect, normal mood. ABSENT: homicidal ideation, suicidal ideation Skin exam: PRESENT: dry, intact, warm. ABSENT: cyanosis, rash Results Laboratory Results: 10/16/18 04:37 10/13/18 10/13/18 10/14/18 20:25 22:15 04:09 Creatine Kinase 36 CK-MB (CK-2) Cancelled 1.19 Troponin I Cancelled 0.121 10/14/18 10/14/18 10/14/18 04:09 08:43 08:43 Creatine Kinase 39 CK-MB (CK-2) 1.40 1.81 Troponin I 0.168 0.223 10/14/18 10/14/18 10/14/18 15:21 15:21 19:20 Creatine Kinase 41 39 CK-MB (CK-2) 2.24 Troponin I 0.236 10/14/18 10/15/18 10/15/18 19:20 02:38 02:38 Creatine Kinase 26 L CK-MB (CK-2) 1.71 1.79 Troponin I 0.260 0.275 10/15/18 10/15/18 10/15/18 08:35 08:35 17:00 Creatine Kinase 27 L 26 L CK-MB (CK-2) 1.54 Troponin I 0.230 10/15/18 10/16/18 17:00 15:30 Creatine Kinase CK-MB (CK-2) 1.32 Troponin I 0.192 0.186 Impressions: Chest X-Ray 10/13/18 16:48 IMPRESSION: Borderline heart size with no pulmonary edema. Question right lower lobe pulmonary nodule. This may represent pulmonary vessels. Chest/Abdomen CTA 10/14/18 00:00 IMPRESSION: No evidence of pulmonary embolus. Coronary atherosclerosis. Plan Time Spent: Greater than 30 Minutes - Was transferred when a bed available to [facility] to the [facility]
[2018-10-18] MEDS: ASPIRIN 81 MG TABLET, CHEWABLE PO SCH (09:48)
[2018-10-18] MEDS: NITROGLYCERIN 15 MG (0.6 MG/1 HR) PATCH.TD24 TD SCH (09:48)
[2018-10-18] MEDS: VERAPAMIL HCL 240 MG TABLET.SA PO SCH (09:48)
[2018-10-18] MEDS: FUROSEMIDE 40 MG TABLET PO SCH (09:48)
[2018-10-18] MEDS: TICAGRELOR 90 MG TABLET PO SCH ×2 (09:48→21:41)
[2018-10-18] MEDS: ENOXAPARIN SODIUM INJ 40 MG/0.4 ML DISP.SYRIN SUBCUT SCH (09:58)
--- NOTE | 2018-10-18 18:52 | Progress Note ---
Provider Note Provider Note: CARDIOLOGY PROGRESS NOTES by Dr. Sheila Florentino on 10/18/2018. SUBJECTIVE: The patient denies any chest pain or discomfort. There is no shortness of breath at rest. She is able to ambulate to the bathroom and back without shortness of breath. There is chronic orthopnea present. There is no PND. There is no palpitations. There is no arrhythmias seen on the monitor. There is no bleeding on current medication. Which includes aspirin intolerant. She denies any TIA CVA symptoms. Her leg edema as only trace to mild. This is stable. The patient denies any dizziness near syncope or syncope. PHYSICAL EXAMINATION:. The patient is moderately obese. In no acute distress. She is well-groomed. Selected Entries 10/18/18 11:20 Temperature 98.1 F Temperature Oral Source Pulse Rate 64 Respiratory 20 Rate Blood Pressure 149/75 H Blood Pressure 99 Mean BP Location Left Arm BP Position Sitting O2 Sat by Pulse 100 Oximetry Oxygen Flow 3.00 Rate Oxygen Delivery Nasal Cannula Method HEAD: Is atraumatic normocephalic. EYES: Pupils are equal round regular and reactive to light accommodation. Extraocular movements are normal. There is no clinical pallor. There is no scleral icterus. ENT: Is negative. NECK: Is supple. There is no JVD. Carotids are equal there is no bruit. There is no lymphadenopathy. There is no goiter. There is no accessory muscle respiration in use. LUNGS: There is diminished air entry and prolonged expiration. There is no chest wall tenderness. On percussion there is hyperresonance. There is no rhonchi rales or wheezing. HEART S1-S2 is heard there is no S3 gallop there is no S4 gallop there is systolic murmur left sternal border and apex there is no rub abdomen: Is slightly obese nontender there is no hepato-splenomegaly. Bowel sounds are well heard. Extremities: Femorals are diminished. There is no femoral bruits. Leg pulses are diminished. There is mild to trace to mild pedal edema bilaterally. There is no cellulitis or DVT. There is no calf tenderness. There is no clubbing or cyanosis. There is no calf tenderness. 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 PSYCHIATRIC: The patient judgment and insight are intact her affect is normal. IMPRESSION/RECOMMENDATION: 1. NON-ST elevation [place]: Although the patient is asymptomatic the patient's troponin I is down. There are no arrhythmias and no evidence of congestive heart failure. The patient has received more than 48 hours of Lovenox treatment earlier, and patient's Lovenox has been stopped. Continue the patient on aspirin, and Brilinta 90 mg p.o. every 12 hours. We will also stop the IV nitroglycerin, and transition the patient to topical Nitropatch. Also will add Ranexa. We will continue to closely monitor patient,. Discussed cardiac catheterization with the patient and patient's daughter. They want it done at [facility] and not here or in [facility]. Since this is a holiday weekend, will set up transfer for on Friday or Friday. The patient is aware of the increased risk of bleeding with aspirin and Brilinta. 2. Most likely has significant coronary artery disease, with moderate to severe coronary artery calcifications by CT angiogram. 3. Hypertension: Blood pressure well controlled 4. COPD: At present no acute exacerbation. Continue nasal oxygen and anti- COPD treatment. 5. Hypothyroidism.: Continue thyroid replacement. 6. REMOTE history of smoking inhalation. This is the reason the patient is now having COPD with dependency on home oxygen. 7. Severe pulmonary hypertension by echo. This has been discussed with the patient, and Dr. Gray covering Dr. Fair. Medications have been reviewed. Medical decision making is still of high complexity. 40 minutes spent on this patient more than 50% of time spent in direct patient care. We will follow with you. Will discuss with [facility] cardiology, and message left at the transfer center for Dr. Rey, director of research center fashion buyer [employer], to call me. The patient and the patient's family are aware of the benefits and risks of transfer.
[2018-10-18] MEDS: MONTELUKAST SODIUM 10 MG TABLET PO SCH (21:41)
[2018-10-18] MEDS: SIMVASTATIN 10 MG TABLET PO SCH (21:41)
[2018-10-19] MEDS: METHYLPREDNISOLONE INJ 125 MG/2 ML SDV IV SCH ×3 (04:13→19:52)
[2018-10-19 05:22] LABS: HEMATOCRIT 37.5 % (36.0-47.0); MEAN CORPUSCULAR HEMOGLOBIN 27.7 pg (27.0-33.4); MEAN CORPUSCULAR HGB CONC 31.8 g/dL (32.0-36.0); MEAN CORPUSCULAR VOLUME 87 fl (80-97); PLATELET COUNT 172 10^3/uL (150-450); RED BLOOD COUNT 4.32 10^6/uL (3.72-5.28); RED CELL DISTRIBUTION WIDTH 16.2 % (11.5-14.0); WHITE BLOOD COUNT 10.8 10^3/uL (4.0-10.5)
[2018-10-19] MEDS: RANOLAZINE 500 MG TAB.SR.12H PO SCH ×2 (06:02→19:55)
[2018-10-19] MEDS: LEVOTHYROXINE SODIUM 0.088 MG TABLET PO SCH (06:02)
[2018-10-19] MEDS: FUROSEMIDE 40 MG TABLET PO SCH (11:01)
[2018-10-19] MEDS: VERAPAMIL HCL 240 MG TABLET.SA PO SCH (11:01)
[2018-10-19] MEDS: ASPIRIN 81 MG TABLET, CHEWABLE PO SCH (11:01)
[2018-10-19] MEDS: NITROGLYCERIN 15 MG (0.6 MG/1 HR) PATCH.TD24 TD SCH (11:02)
[2018-10-19] MEDS: TICAGRELOR 90 MG TABLET PO SCH (11:07)
--- NOTE | 2018-10-19 13:09 | PDOC PROGRESS REPORT ---
Subjective Progress Note for:: 10/19/18 Subjective:: Patient is currently doing well Patient is waiting to the transfer to [facility] Patient's denied any chest pain to than any shortness of the breath Reason For Visit: NSTEMI, EXACERBATED COPD Physical Exam Vital Signs: Temp Pulse Resp BP Pulse Ox 97.6 F 69 16 150/79 H 95 10/19/18 11:07 10/19/18 11:07 10/19/18 11:07 10/19/18 11:07 10/19/18 11:07 Intake & Output 10/18/18 10/19/18 10/20/18 06:59 06:59 06:59 Intake Total 1438 1425 Output Total 1900 1650 Balance -462 -225 Weight 106 kg 104.7 kg General appearance: PRESENT: no acute distress, well-developed, well-nourished Head exam: PRESENT: atraumatic, normocephalic Eye exam: PRESENT: conjunctiva pink, EOMI, PERRLA. ABSENT: scleral icterus Ear exam: PRESENT: normal external ear exam Mouth exam: PRESENT: moist, tongue midline Neck exam: PRESENT: full ROM. ABSENT: carotid bruit, JVD, lymphadenopathy, thyromegaly Respiratory exam: PRESENT: clear to auscultation phillip Cardiovascular exam: PRESENT: RRR. ABSENT: diastolic murmur, rubs, systolic murmur Pulses: PRESENT: normal dorsalis pedis pul, +2 pedal pulses bilateral Vascular exam: PRESENT: normal capillary refill GI/Abdominal exam: PRESENT: normal bowel sounds, soft. ABSENT: distended, guarding, mass, organolmegaly, rebound, tenderness Rectal exam: PRESENT: deferred Extremities exam: ABSENT: joint swelling, pedal edema Neurological exam: PRESENT: alert, awake, oriented to person, oriented to place , oriented to time, oriented to situation, CN II-XII grossly intact. ABSENT: motor sensory deficit Psychiatric exam: PRESENT: appropriate affect, normal mood. ABSENT: homicidal ideation, suicidal ideation Skin exam: PRESENT: dry, intact, warm. ABSENT: cyanosis, rash Results Laboratory Results: 10/19/18 04:03 10/19/18 04:03 WBC 10.8 H RBC 4.32 Hgb 12.0 Hct 37.5 MCV 87 MCH 27.7 MCHC 31.8 L RDW 16.2 H Plt Count 172 11/20/18 11/20/18 11/21/18 20:25 22:15 04:09 Creatine Kinase 36 CK-MB (CK-2) Cancelled 1.19 Troponin I Cancelled 0.121 10/14/18 10/14/18 10/14/18 04:09 08:43 08:43 Creatine Kinase 39 CK-MB (CK-2) 1.40 1.81 Troponin I 0.168 0.223 10/14/18 10/14/18 10/14/18 15:21 15:21 19:20 Creatine Kinase 41 39 CK-MB (CK-2) 2.24 Troponin I 0.236 10/14/18 10/15/18 10/15/18 19:20 02:38 02:38 Creatine Kinase 26 L CK-MB (CK-2) 1.71 1.79 Troponin I 0.260 0.275 10/15/18 10/15/18 10/15/18 08:35 08:35 17:00 Creatine Kinase 27 L 26 L CK-MB (CK-2) 1.54 Troponin I 0.230 10/15/18 10/16/18 17:00 15:30 Creatine Kinase CK-MB (CK-2) 1.32 Troponin I 0.192 0.186 Impressions: Chest X-Ray 10/13/18 16:48 IMPRESSION: Borderline heart size with no pulmonary edema. Question right lower lobe pulmonary nodule. This may represent pulmonary vessels. Chest/Abdomen CTA 10/14/18 00:00 IMPRESSION: No evidence of pulmonary embolus. Coronary atherosclerosis. Assessment & Plan - Diagnosis (1) COPD (chronic obstructive pulmonary disease) Is this a current diagnosis for this admission?: Yes (2) GERD (gastroesophageal reflux disease) Qualifiers: Esophagitis presence: without esophagitis Qualified Code(s): K21.9 - Gastro -esophageal reflux disease without esophagitis Is this a current diagnosis for this admission?: Yes (3) HLD (hyperlipidemia) Qualifiers: Hyperlipidemia type: unspecified Qualified Code(s): E78.5 - Hyperlipidemia , unspecified Is this a current diagnosis for this admission?: Yes (4) NSTEMI (non-ST elevated myocardial infarction) Is this a current diagnosis for this admission?: Yes (5) YELITZA (obstructive sleep apnea) Is this a current diagnosis for this admission?: Yes (6) CHF (congestive heart failure) Is this a current diagnosis for this admission?: Yes (7) Hypertension Qualifiers: Hypertension type: essential hypertension Qualified Code(s): I10 - Essential (primary) hypertension Is this a current diagnosis for this admission?: Yes - Time Time Spent with patient: 15-24 minutes Medications reviewed and adjusted accordingly: Yes Anticipated discharge: [facility]: when bed available - Inpatient Certification Based on my medical assessment, after consideration of the patient's comorbidities, presenting symptoms, or acuity I expect that the services needed warrant INPATIENT care.: Yes I certify that my determination is in accordance with my understanding of Medicare's requirements for reasonable and necessary INPATIENT services [42 CFR 412.3e].: Yes Post Hospital Care: D/C 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
[2018-10-19 20:01] VITALS: BP 143/76
== END 2018-10-19 19:59 | disposition short-term general hospital (02) | DRG 281 ==
LOC: ER 16:42 → EH 19:41 → OBSVTOIN 19:41 → 3N 21:38
PROVIDERS: ADMIT Internal Medicine Geriatric Medicine; ATTEND Family Medicine
DX: I21.4 Non-ST elevation (NSTEMI) myocardial infarction (principal); J44.1 Chronic obstructive pulmonary disease with (acute) exacerbation; I11.0 Hypertensive heart disease with heart failure; I50.9 Heart failure, unspecified; I27.20 Pulmonary hypertension, unspecified; E03.9 Hypothyroidism, unspecified; K21.9 Gastro-esophageal reflux disease without esophagitis; I44.4 Left anterior fascicular block; G47.33 Obstructive sleep apnea (adult) (pediatric); E66.01 Morbid (severe) obesity due to excess calories; Z99.81 Dependence on supplemental oxygen
CPT/HCPCS: 36415; 36600; 71045; 71275; 80053; 81001; 82272; 82550; 82553; 82803; 83880; 84439; 84443; 84481; 84484; 85025; 85027; 93005; 93010; 93306; 94640; 96374; 99291; G0378; J1650; J2930; J3490; J7620

== ENCOUNTER 2020-07-03 17:08 | Emergency (ER) | payer MEDICARE, MEDICAID ==
--- NOTE | 2020-07-03 19:56 | ER Document Report ---
ED Respiratory Problem - General Chief Complaint: Cough Stated Complaint: COUGH/COLD SYMPTOMS Time Seen by Provider: 07/03/20 19:50 Primary Care Provider: TARYN GARCIA MD [Primary Care Provider] - Follow up as needed Mode of Arrival: Ambulatory Information source: Patient Notes: 07/03/20 19:31 - ED Nursing Note by DAYA VEGA Num: [id number] : 1940 Patient Age: 79 Pt states that for the last 2 days she has had a cough that has gotten worse. Pt states that she has intermittent mucus production with her cough. Pt states that she also has no energy, decreased appetite, and can not sleep. Pt states that sometimes her head hurts when she coughs alot. Pt denies any other symptoms or pain. Pt states she does have COPD. Pt breathing e/u. NAD noted. Pt is on 2.5L [place] of oxygen per her normal. MyNotes 79-year-old black female arrives by POV with chief complaint of productive yellow phlegm cough for the last 4 days. Patient also reports she had some nasal stuffiness and rhinorrhea 4 days ago but she used some nasal antihistamine and this resolved. Patient does have a history of COPD. 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 She reports she needs some pain medicine for these symptoms as well. She denies any hemoptysis fever chills sore throat nuchal rigidity cephalgia skin rash trauma abuse neglect spider bite animal bite exposure to coronavirus or sick individuals in general. TRAVEL OUTSIDE OF THE [place] IN LAST 30 DAYS: No - HPI Patient complains to provider of: Chest pain Duration: Continuous Severity: Moderate Pain Level: 3 Context: Hx COPD - Related Data Allergies/Adverse Reactions: oxycodone HCl [From Percocet] Adverse Reaction (Verified 10/13/18 16:43) Past Medical History - General Information source: Patient - Social History Smoking Status: Former Smoker Cigarette use (# per day): No Chew tobacco use (# tins/day): No Smoking Education Provided: No Frequency of alcohol use: None Drug Abuse: None Lives with: Family Family History: None, CAD, COPD, DM, Hypertension, Malignancy Patient has suicidal ideation: No Patient has homicidal ideation: No - Past Medical History Cardiac Medical History: Reports: Hx Congestive Heart Failure, Hx Coronary Artery Disease, Hx Hypercholesterolemia, Hx Hypertension Denies: Hx Heart Attack Pulmonary Medical History: Reports: Hx COPD - On home O2 at 2 L/min all the time., Hx Sleep Apnea Denies: Hx Asthma, Hx Bronchitis, Hx Pneumonia, Hx Tuberculosis Neurological Medical History: Denies: Hx Cerebrovascular Accident, Hx Seizures Endocrine Medical History: Reports: Hx Hypothyroidism Renal/ Medical History: Denies: Hx Peritoneal Dialysis GI Medical History: Reports: Hx Gastroesophageal Reflux Disease Musculoskeletal Medical History: Reports Hx Arthritis, Reports Hx Gout Skin Medical History: Denies Hx Psoriasis Psychiatric Medical History: Denies: Hx Depression Traumatic Medical History: Denies: Hx Traumatic Brain Injury Infectious Medical History: Denies: Hx HIV Past Surgical History: Reports: Hx Cholecystectomy, Hx Hysterectomy. Denies: Hx Pacemaker - Immunizations Immunizations up to date: No Hx Diphtheria, Pertussis, Tetanus Vaccination: Yes Hx Pneumococcal Vaccination: 08/24/16 Review of Systems - Review of Systems Constitutional: See HPI, Weakness EENT: No symptoms reported Cardiovascular: No symptoms reported Respiratory: See HPI, Cough, Sputum Gastrointestinal: No symptoms reported Genitourinary: No symptoms reported Female Genitourinary: No symptoms reported Musculoskeletal: See HPI, Joint pain - of hands fingers knees Skin: No symptoms reported Hematologic/Lymphatic: No symptoms reported Neurological/Psychological: No symptoms reported Physical Exam - Vital signs Vitals: Temp Pulse Resp BP Pulse Ox 98.7 F 91 20 131/57 H 91 L 07/03/20 19:09 07/03/20 19:09 07/03/20 19:09 07/03/20 19:09 07/03/20 19:09 Interpretation: Hypoxic - HEENT Head: Normocephalic, Atraumatic Eyes: Normal Pupils: PERRL Tympanic membrane: Normal Sinus: Normal Nasal: Normal Mucous membranes: Normal Pharynx: Normal - Respiratory Respiratory status: No respiratory distress Chest status: Nontender Breath sounds: Normal Chest palpation: Normal - Cardiovascular Rhythm: Regular Heart sounds: Normal auscultation Murmur: No - Abdominal Inspection: Normal Distension: No distension Bowel sounds: Normal Tenderness: Nontender Organomegaly: No organomegaly - Rectal Notes: deferred - Genitourinary Bimanuel exam: Other - deferred - Back Back: Normal - Extremities General upper extremity: Tender, Other - DJD of bilateral and fingers PIP and DIPs but no [place] or [place] nodes. General lower extremity: Tender - Bilateral knee pain on palpation but no obvious effusion or deviation of joints. - Neurological Neuro grossly intact: Yes Cognition: Normal Orientation: AAOx4 [place] Coma Scale Eye Opening: Spontaneous [place] Coma Scale Verbal: Oriented [place] Coma Scale Motor: Obeys Commands [place] Coma Scale Total: 15 Speech: Normal Motor strength normal: LUE, RUE, LLE, RLE Sensory: Normal - Psychological Associated symptoms: Normal affect - Skin Skin Temperature: Warm Skin Moisture: Dry Course - Vital Signs Vital signs: Temp Pulse Resp BP Pulse Ox 98.7 F 91 20 131/57 H 91 L 07/03/20 19:07/03/20 19:07/03/20 19:07/03/20 19:07/03/20 19:09 - Diagnostic Test Radiology reviewed: Reports reviewed Discharge - Discharge Clinical Impression: Bronchitis, Arthralgia of multiple joints URI (upper respiratory infection) Qualifiers: URI type: unspecified URI Qualified Code(s): J06.9 - Acute upper respiratory infection, unspecified Condition: Good Disposition: HOME, SELF-CARE Instructions: Upper Respiratory Illness ([facility]) Additional Instructions: Follow-up with personal doctor this week return to ER as needed take medicines as directed try to stay quarantine until result of coronavirus test has returned. Encourage fluids like water or tea. May use chamomile tea for URI symptoms. Prescriptions: Benzonatate [Tessalon Perles 100 mg Capsule] 100 mg PO Q8HP PRN #40 capsule PRN Reason: Diclofenac Sodium 100 gm TP BID PRN #100 gel..gram. PRN Reason: Azithromycin [Zithromax 250 mg Tablet] 250 mg PO ASDIR PRN #6 tablet PRN Reason: Referrals: TARYN GARCIA MD [Primary Care Provider] - Follow up as needed
--- NOTE | 2020-07-03 20:46 | RADIOLOGY REPORT (SQ) ---
EXAM DESCRIPTION: X-RAY CHEST- One View CLINICAL HISTORY: Cough COMPARISON: November 11, 2019 TECHNIQUE: Single view of the chest. FINDINGS: There are low lung volumes with compressive changes. Minimal nonspecific patchy opacities overlie the left lung base. The pulmonary vascularity is normal. The cardiomediastinal silhouette is stable in appearance. No suspicious lytic or blastic osseous lesions are identified. IMPRESSION: Minimal nonspecific patchy opacities overlie the left lung base. Low lung volumes with compressive changes are present.
[2020-07-03] MEDS ORDERED: CEFTRIAXONE INJ 1000 MG VIAL IM ONE (20:53)
[2020-07-03] MEDS ORDERED: DEXAMETHASONE 4 MG TABLET PO ONE (20:54)
[2020-07-03] MEDS ORDERED: LIDOCAINE 1% INJ-PF (10 MG/ML) 30 ML SDV ONE (21:15)
[2020-07-03 21:30] VITALS: BP 137/73
== END 2020-07-03 21:39 | disposition home or self-care (01) ==
LOC: ER 17:08
DX: J40 Bronchitis, not specified as acute or chronic (principal); J06.9 Acute upper respiratory infection, unspecified; J44.9 Chronic obstructive pulmonary disease, unspecified; M19.042 Primary osteoarthritis, left hand; M19.041 Primary osteoarthritis, right hand; M17.0 Bilateral primary osteoarthritis of knee; R05 Cough; R63.0 Anorexia; R51 Headache; R53.1 Weakness; I25.10 Atherosclerotic heart disease of native coronary artery without angina pectoris; I10 Essential (primary) hypertension; Z87.891 Personal history of nicotine dependence
CPT/HCPCS: 99284; 96372; 71045; A9270; J3490; J0696; J8540

== ENCOUNTER 2020-08-31 18:24 | Emergency (ER) | payer MEDICARE, MEDICAID ==
--- NOTE | 2020-08-31 18:55 | ER Document Report ---
ED Medical Screen (RME) - General Stated Complaint: WEAKNESS Time Seen by Provider: 08/31/20 18:48 Primary Care Provider: TARYN GARCIA MD [Primary Care Provider] - Follow up as needed Information source: Patient Notes: Patient presents complaining of generalized weakness, lightheadedness and shortness of breath. Patient reports the symptoms for the past 2 to 3 days. Patient denies any chest pain or headache. Patient denies any nausea vomiting or diarrhea. Patient complains of bilateral knee pain from her arthritis. Patient reports decreased appetite. I have greeted and performed a rapid initial assessment of this patient. A comprehensive ED assessment and evaluation of the patient, analysis of test results and completion of the medical decision making process will be conducted by additional ED providers. TRAVEL OUTSIDE OF THE [place] IN LAST 30 DAYS: No - Related Data Allergies/Adverse Reactions: oxycodone HCl [From Percocet] Adverse Reaction (Verified 10/13/18 16:43) Past Medical History - Past Medical History Cardiac Medical History: Reports: Hx Congestive Heart Failure, Hx Coronary Artery Disease, Hx Hypercholesterolemia, Hx Hypertension Denies: Hx Heart Attack Pulmonary Medical History: Reports: Hx COPD - On home O2 at 2 L/min all the time., Hx Sleep Apnea Denies: Hx Asthma, Hx Bronchitis, Hx Pneumonia, Hx Tuberculosis Neurological Medical History: Denies: Hx Cerebrovascular Accident, Hx Seizures Endocrine Medical History: Reports: Hx Hypothyroidism Renal/ Medical History: Denies: Hx Peritoneal Dialysis GI Medical History: Reports: Hx Gastroesophageal Reflux Disease Musculoskeltal Medical History: Reports Hx Arthritis, Reports Hx Gout Skin Medical History: Denies Hx Psoriasis Psychiatric Medical History: Denies: Hx Depression Traumatic Medical History: Denies: Hx Traumatic Brain Injury Infectious Medical History: Denies: Hx HIV Past Surgical History: Reports: Hx Cholecystectomy, Hx Hysterectomy. Denies: Hx Pacemaker - Immunizations Immunizations up to date: No Hx Diphtheria, Pertussis, Tetanus Vaccination: Yes Physical Exam - Vital signs Vitals: Temp Pulse Resp BP Pulse Ox 98.6 F 88 22 H 149/77 H 95 08/31/20 18:31 08/31/20 18:31 08/31/20 18:31 08/31/20 18:31 08/31/20 18:31 - Respiratory Respiratory status: Tachypnea - Mild tachypnea Breath sounds: Rales - Bilateral bases, right middle lobe Course - Vital Signs Vital signs: Temp Pulse Resp BP Pulse Ox 98.6 F 88 22 H 149/77 H 95 08/31/20 18:31 08/31/20 18:31 08/31/20 18:31 08/31/20 18:31 08/31/20 18:31 Doctor's Discharge - Discharge Referrals: TARYN GARCIA MD [Primary Care Provider] - Follow up as needed
--- NOTE | 2020-08-31 19:16 | RADIOLOGY REPORT (SQ) ---
EXAM DESCRIPTION: CHEST SINGLE VIEW IMAGES COMPLETED DATE/TIME: 08/31/2020 7:05 pm REASON FOR STUDY: sob COMPARISON: 07/03/2020 TECHNIQUE: Single frontal radiographic view of the chest acquired. NUMBER OF VIEWS: One view. LIMITATIONS: None. FINDINGS: LUNGS AND PLEURA: No pneumothorax. Slightly Increased interstitial -airspace opacities in the left lung base. No significant pleural effusion. MEDIASTINUM AND HILAR STRUCTURES: Stable. HEART AND VASCULAR STRUCTURES: Stable. BONES: No acute findings. HARDWARE: None in the chest. OTHER: No other significant finding. IMPRESSION: Slightly Increased interstitial -airspace opacities in the left lung base. No signific ant pleural effusion. TECHNICAL DOCUMENTATION: JOB ID: [id number] [place]-72 2010 [employer]- All Rights Reserved Reading location - IP/workstation name: [facility]
--- NOTE | 2020-08-31 20:58 | ER Document Report ---
ED General - General Chief Complaint: Shortness Of Breath Stated Complaint: WEAKNESS Time Seen by Provider: 08/31/20 18:48 Primary Care Provider: TARYN GARCIA MD [Primary Care Provider] - Follow up as needed Notes: Patient is a 89-year-old -[place] female with a history of COPD, hypertension, CHF who presents the emergency department with a chief complaint of feeling generally unwell for the past 2 to 3 days. States she was here about 2 months ago and diagnosed with bronchitis. States that she took the medication as prescribed and got better. She states over the past 2 to 3 days she is noticed some slight shortness of breath increased. She noted decreased appetite and difficulty sleeping through the night. She states she is not sure what is 1 she just does not feel well. She denies any chest pain or lower extremity pain or swelling. No cough. No fever. No recent travel or known sick contacts. No known exposures to anyone with COVID-19. No rashes. No visual disturbances or headaches. No dizziness. No neck pain. No abdominal pain, vomiting or diarrhea. TRAVEL OUTSIDE OF THE [place] IN LAST 30 DAYS: No - Related Data Allergies/Adverse Reactions: oxycodone HCl [From Percocet] Adverse Reaction (Verified 10/13/18 16:43) Past Medical History - General Information source: Patient - Social History Smoking Status: Former Smoker Chew tobacco use (# tins/day): No Frequency of alcohol use: None Drug Abuse: None Family History: None, CAD, COPD, DM, Hypertension, Malignancy Patient has homicidal ideation: No - Past Medical History Cardiac Medical History: Reports: Hx Congestive Heart Failure, Hx Coronary Artery Disease, Hx Hypercholesterolemia, Hx Hypertension Denies: Hx Heart Attack Pulmonary Medical History: Reports: Hx COPD - On home O2 at 2 L/min all the time., Hx Sleep Apnea Denies: Hx Asthma, Hx Bronchitis, Hx Pneumonia, Hx Tuberculosis Neurological Medical History: Denies: Hx Cerebrovascular Accident, Hx Seizures Endocrine Medical History: Reports: Hx Hypothyroidism Renal/ Medical History: Denies: Hx Peritoneal Dialysis GI Medical History: Reports: Hx Gastroesophageal Reflux Disease Musculoskeletal Medical History: Reports Hx Arthritis, Reports Hx Gout Skin Medical History: Denies Hx Psoriasis Psychiatric Medical History: Denies: Hx Depression Traumatic Medical History: Denies: Hx Traumatic Brain Injury Infectious Medical History: Denies: Hx HIV Past Surgical History: Reports: Hx Cholecystectomy, Hx Hysterectomy. Denies: Hx Pacemaker - Immunizations Immunizations up to date: No Hx Diphtheria, Pertussis, Tetanus Vaccination: Yes Hx Pneumococcal Vaccination: 08/24/16 Review of Systems - Review of Systems Constitutional: denies: Fever EENT: denies: Tearing Cardiovascular: denies: Syncope Respiratory: denies: Cough Gastrointestinal: denies: Constipation Genitourinary: denies: Burning Female Genitourinary: denies: Vaginal discharge Musculoskeletal: denies: Deformity Skin: denies: Lesions Hematologic/Lymphatic: denies: Easy bruising Neurological/Psychological: denies: Headaches Physical Exam - Vital signs Vitals: Temp Pulse Resp BP Pulse Ox 98.6 F 88 22 H 149/77 H 95 08/31/20 18:31 08/31/20 18:31 08/31/20 18:31 08/31/20 18:31 08/31/20 18:31 - General General appearance: Appears well, Alert In distress: None - HEENT Head: Normocephalic, Atraumatic Eyes: Normal Pupils: PERRL Mouth/Lips: Normal Pharynx: Normal Neck: Normal, Supple - Respiratory Respiratory status: No respiratory distress Chest status: Nontender Breath sounds: Normal Chest palpation: Normal - Cardiovascular Rhythm: Regular Heart sounds: Normal auscultation - Abdominal Inspection: Normal Distension: No distension Bowel sounds: Normal Tenderness: Nontender Organomegaly: No organomegaly - Extremities General upper extremity: Normal inspection, Nontender, Normal color, Normal ROM, Normal temperature General lower extremity: Normal inspection, Nontender, Normal color, Normal ROM, Normal temperature, Normal weight bearing. No: Dale's sign - Neurological Neuro grossly intact: Yes Cognition: Normal Orientation: AAOx4 - Psychological Associated symptoms: Normal affect, Normal mood - Skin Skin Temperature: Warm Skin Moisture: Dry Skin Color: Normal Course - Re-evaluation Re-evalutation: 08/31/20 21:21 Pending laboratory studies patient requesting food at this time. States that she is hungry and would like to eat. 08/31/20 21:22 X-ray showing slightly increased interstitial airspace disease at the left lung base compared with prior to the radiologist 08/31/20 21:32 CO2 came back at 44 on the CMP. Will obtain an ABG. I reevaluated the patient at this time. She is wearing her oxygen at 2 L via nasal cannula. She has a normal respiratory rate and vitals are being monitored on a bedside monitor. Her EKG at 1955 showed a sinus rhythm at 89 bpm with a prolonged PA of 224 indicating first-degree AV block and a prolonged QTC of 502. PVCs noted in aVL and aVF. Patient has evidence of the PA prolongation and prolonged QTC on previous EKGs. 08/31/20 21:37 08/31/20 22:50 Patient's CO2 on ABG elevated as well. This seems to be baseline for her based on her previous records. She also had an elevated troponin at 0.2 which also seems to be about baseline for her given her history of troponins here. She has no chest pain. There is no evidence of shortness of breath at rest. Her vitals are normal on 2 L of oxygen via nasal cannula. She has some evidence of possible pneumonia in the left base but has no cough or fever. Concern for developing pneumonia so we will treat with Rocephin and Zithromax. Suspect that her elevated CO2 despite a normal respiratory rate is in relation to poor exchange due to poor lung function. Patient after much discussion has decided that she wished to be discharged home. We discussed other alternatives inclu ding admission and further monitoring in the department. Will treat with Rocephin and Zithromax initially discharged home. She reports that her daughter lives with her he has someone to help her and monitor her. I requested that she call Dr. Garcia first thing tomorrow morning to discuss with him what is happening and for further arrangement of outpatient care and monitoring. I recommended that she return here or any ER immediately with any new, persistent or worsening symptoms. She verbalized understood and agreed. - Vital Signs Vital signs: Temp Pulse Resp BP Pulse Ox 98.6 F 88 21 H 149/77 H 96 08/31/20 18:31 08/31/20 18:31 08/31/20 22:02 08/31/20 21:01 08/31/20 21:01 - Laboratory Result Diagrams: 08/31/20 21:15 08/31/20 20:45 Laboratory results interpreted by me: 08/31/20 08/31/20 08/31/20 20:45 21:15 21:15 Hgb 11.6 L MCHC 31.9 L RDW 16.7 H Lymph % (Auto) 12.6 L Carbonic Acid ABG pH ABG pCO2 ABG pO2 ABG HCO3 ABG Total CO2 ABG O2 Saturation Chloride 90 L Carbon Dioxide 44 H* Calcium 10.4 H NT-Pro-B Natriuret Pep 941 H Urine Protein Urine Urobilinogen Ur Leukocyte Esterase 08/31/20 08/31/20 22:07 22:10 Hgb MCHC RDW Lymph % (Auto) Carbonic Acid 2.99 H ABG pH 7.29 L ABG pCO2 99.5 H* ABG pO2 137.3 H ABG HCO3 46.8 H ABG Total CO2 49.8 H ABG O2 Saturation 98.2 H Chloride Carbon Dioxide Calcium NT-Pro-B Natriuret Pep Urine Protein 30 H Urine Urobilinogen 4.0 H Ur Leukocyte Esterase SMALL H Discharge - Discharge Clinical Impression: Pneumonia Qualifiers: Pneumonia type: due to unspecified organism Laterality: unspecified laterality Lung location: unspecified part of lung Qualified Code(s): J18.9 - Pneumonia, unspecified organism Condition: Stable Disposition: HOME, SELF-CARE Instructions: Pneumonia ([facility]), COVID-19 Guidance for Persons Under Investigation Additional Instructions: Please take medications as prescribed. Please call Dr. Garcia first thing tomorrow morning for continued management. Please return here or any ER immediately with any new, persistent or worsening symptoms. Prescriptions: Amoxicillin 1 tab PO BID #14 tab Azithromycin [Zithromax 250 mg Tablet] 250 mg PO DAILY #4 tablet Referrals: TARYN GARCIA MD [Primary Care Provider] - Follow up as needed
[2020-08-31 21:18] LABS: ALBUMIN 4.1 g/dL (3.5-5.0); ALKALINE PHOSPHATASE 106 U/L (38-126); ASPARTATE AMINO TRANSFERASE 27 U/L (14-36); BILIRUBIN,DIRECT 0.3 mg/dL (0.0-0.4); BILIRUBIN,TOTAL 0.7 mg/dL (0.2-1.3); BLOOD UREA NITROGEN 17 mg/dL (7-20); CALCIUM 10.4 mg/dL (8.4-10.2); CHLORIDE 90 mmol/L (98-107); GLUCOSE 80 mg/dL (75-110); POTASSIUM 4.1 mmol/L (3.6-5.0); TOTAL PROTEIN 7.3 g/dL (6.3-8.2)
[2020-08-31 21:26] LABS: ANION GAP 7 (5-19)
[2020-08-31 21:28] LABS: CARBON DIOXIDE 44 mmol/L (22-30)
[2020-08-31 21:35] LABS: ABSOLUTE BASOPHILS # (AUTO) 0.1 10^3/uL (0.0-0.2); ABSOLUTE EOSINOPHILS # (AUTO) 0.3 10^3/uL (0.0-0.6); ABSOLUTE LYMPHOCYTES (AUTO) 0.9 10^3/uL (0.5-4.7); ABSOLUTE MONOCYTES (AUTO) 0.5 10^3/uL (0.1-1.4); ABSOLUTE NEUT (AUTO) 5.7 10^3/uL (1.7-8.2); BASOPHILS % (AUTO) 0.7 % (0-2); EOSINOPHILS % (AUTO) 3.9 % (0-6); HEMATOCRIT 36.4 % (36.0-47.0); HEMOGLOBIN 11.6 g/dL (12.0-15.5); LYMPHOCYTES % (AUTO) 12.6 % (13-45); MEAN CORPUSCULAR HEMOGLOBIN 28.2 pg (27.0-33.4); MEAN CORPUSCULAR HGB CONC 31.9 g/dL (32.0-36.0); MEAN CORPUSCULAR VOLUME 89 fl (80-97); MONOCYTES % (AUTO) 6.6 % (3-13); PLATELET COUNT 193 10^3/uL (150-450); RED BLOOD COUNT 4.12 10^6/uL (3.72-5.28); RED CELL DISTRIBUTION WIDTH 16.7 % (11.5-14.0); SEGMENTED NEUTROPHILS % (AUTO) 76.2 % (42-78); TOTAL CELLS COUNTED % (AUTO) 100 %; WHITE BLOOD COUNT 7.5 10^3/uL (4.0-10.5)
[2020-08-31 21:57] LABS: INTERNATIONAL RATION (INR) 0.99; PROTHROMBIN TIME 13.3 SEC (11.4-15.4)
[2020-08-31 21:58] LABS: PARTIAL THROMBOPLASTIN TIME 32.4 SEC (23.5-35.8)
[2020-08-31 22:09] LABS: TROPONIN I 0.208 ng/mL
[2020-08-31 22:29] LABS: ARTERIAL BLOOD BASE EXCESS 15.9 mmol/L; ARTERIAL BLOOD H2CO3 2.99 mmol/L (1.05-1.35); ARTERIAL BLOOD HCO3 46.8 mmol/L (20-24); ARTERIAL BLOOD O2 SATURATION 98.2 % (94-98); ARTERIAL BLOOD PH 7.29 (7.35-7.45); ARTERIAL BLOOD PO2 137.3 mmHg (80-100); ARTERIAL BLOOD TOTAL CO2 49.8 mmol/L (21-25)
[2020-08-31 22:37] LABS: ARTERIAL BLOOD FIO2 3L; ARTERIAL BLOOD PCO2 99.5 mmHg (35-45)
[2020-08-31 22:42] LABS: APPEARANCE,URINE SLIGHTLY-CLOUDY; BILIRUBIN,URINE NEGATIVE (NEGATIVE); COLOR,URINE YELLOW; GLUCOSE, URINE NEGATIVE (NEGATIVE); KETONES,URINE NEGATIVE (NEGATIVE); LEUKOCYTE ESTERASE,URINE SMALL (NEGATIVE); NITRITE,URINE NEGATIVE (NEGATIVE); PROTEIN,URINE 30 mg/dL (NEGATIVE); URINE SPECIFIC GRAVITY 1.019
[2020-08-31] MEDS ORDERED: CEFTRIAXONE 1 GM/D5W RTU 1 GM/50 ML RTUPB IV ONE (22:49)
--- NOTE | 2020-08-31 23:36 | EKG REPORT ---
SEVERITY:- ABNORMAL ECG - SINUS RHYTHM VENTRICULAR PREMATURE COMPLEX FIRST DEGREE AV BLOCK PROBABLE LEFT ATRIAL ABNORMALITY RBBB AND LAFB LEFT VENTRICULAR HYPERTROPHY CONSIDER ANTERIOR INFARCT : Confirmed by: Sheila Florentino MD 31-Aug-2020 23:35:03
[2020-08-31] MEDS ORDERED: AZITHROMYCIN 250 MG TABLET ONE (23:45)
[2020-09-01 00:37] VITALS: BP 167/80
[2020-09-01] MEDS ORDERED: AZITHROMYCIN 250 MG TABLET PO ONE (22:48)
== END 2020-09-01 01:01 | disposition home or self-care (01) ==
LOC: ER 18:24
DX: J18.9 Pneumonia, unspecified organism (principal); J44.0 Chronic obstructive pulmonary disease with (acute) lower respiratory infection; R06.02 Shortness of breath; R63.0 Anorexia; I25.10 Atherosclerotic heart disease of native coronary artery without angina pectoris; I10 Essential (primary) hypertension; I44.0 Atrioventricular block, first degree; Z20.828 Contact with and (suspected) exposure to other viral communicable diseases; Z87.891 Personal history of nicotine dependence
CPT/HCPCS: 93005; 99285; 96365; 36415; 87040; 82803; 83735; 85025; 85610; 85730; 87077; 80053; 81001; 84484; 87186; 87150 ×26; 83880; 71045; 93010; 36600; U0003; A9270; J0696; C9803; 87635

== ENCOUNTER 2020-10-01 03:25 | Inpatient (IN) | payer MEDICARE, MEDICAID ==
--- NOTE | 2020-10-01 04:08 | ER Document Report ---
ED General - General TRAVEL OUTSIDE OF THE [place] IN LAST 30 DAYS: No - HPI Pain Level: 0 Associated symptoms: Other - See HPI Exacerbated by: Other - See HPI Relieved by: Other - See HPI <VERONICA STARKS IV - Last Filed: 10/01/20 06:05> <OMERFUNMILAYO J - Last Filed: 10/01/20 14:44> - General Chief Complaint: Weakness Stated Complaint: FALL,WEAKNESS Time Seen by Provider: 10/01/20 03:30 - HPI Context: This is a 79-year-old female presenting via EMS for evaluation after falling twice at home today. Patient states her legs "just give out" and it causes her to fall. Patient denies headache, visual changes, chest pain, shortness of breath, slurred speech. Patient denies fever, chills, history of COVID-19 infection, known exposure to COVID-19 positive persons or persons under investigation for COVID-19. Patient states she has been having problems with her legs and knees for "a while" and that her primary care provider, Dr. Gray, will not give her anything for the pain. Patient denies having any pain at this time and rates her pain as a 0 on a scale of 0-5. Patient cannot identify any exacerbating or mitigating factors in terms of her falls. Patient denies changes in urination frequency and denies dysuria. Patient states her daughter lives with her at home. (VERONICA STARKS IV) - Related Data Allergies/Adverse Reactions: oxycodone HCl [From Percocet] Adverse Reaction (Verified 10/13/18 16:43) Past Medical History - General Information source: Patient, Emergency Med Personnel - Social History Smoking Status: Former Smoker Frequency of alcohol use: None Drug Abuse: None Family History: None, CAD, COPD, DM, Hypertension, Malignancy Patient has homicidal ideation: No - Past Medical History Cardiac Medical History: Reports: Hx Congestive Heart Failure, Hx Coronary Artery Disease, Hx Hypercholesterolemia, Hx Hypertension Denies: Hx Heart Attack Pulmonary Medical History: Reports: Hx COPD - On home O2 at 2 L/min all the time., Hx Sleep Apnea Denies: Hx Asthma, Hx Bronchitis, Hx Pneumonia, Hx Tuberculosis Neurological Medical History: Denies: Hx Cerebrovascular Accident, Hx Seizures Endocrine Medical History: Reports: Hx Hypothyroidism Renal/ Medical History: Denies: Hx Peritoneal Dialysis GI Medical History: Reports: Hx Gastroesophageal Reflux Disease Musculoskeletal Medical History: Reports Hx Arthritis, Reports Hx Gout Skin Medical History: Denies Hx Psoriasis Psychiatric Medical History: Denies: Hx Depression Traumatic Medical History: Denies: Hx Traumatic Brain Injury Infectious Medical History: Denies: Hx HIV Past Surgical History: Reports: Hx Cholecystectomy, Hx Hysterectomy. Denies: Hx Pacemaker - Immunizations Immunizations up to date: No Hx Diphtheria, Pertussis, Tetanus Vaccination: Yes Hx Pneumococcal Vaccination: 08/24/16 <VERONICA STARKS IV - Last Filed: 10/01/20 06:05> Review of Systems - Review of Systems Constitutional: No symptoms reported EENT: No symptoms reported Cardiovascular: No symptoms reported Respiratory: No symptoms reported Gastrointestinal: No symptoms reported Genitourinary: No symptoms reported Female Genitourinary: No symptoms reported Musculoskeletal: Other - Bilateral leg weakness Skin: No symptoms reported Hematologic/Lymphatic: No symptoms reported Neurological/Psychological: No symptoms reported -: Yes All other systems reviewed and negative <RAUDELVERONICA DAVIS IV - Last Filed: 10/01/20 06:05> Physical Exam <VERONICA STARKS IV - Last Filed: 10/01/20 06:05> - Vital signs Vitals: Resp BP Pulse Ox 17 140/80 H 99 10/01/20 03:33 10/01/20 03:33 10/01/20 03:33 - Notes Notes: CONSTITUTIONAL [Vital signs reviewed, Patient appears comfortable, Alert and oriented X 3, Normal stature.] HEAD [Atraumatic, Normocephalic.] EYES [Eyes are normal to inspection, No discharge from eyes, Extraocular muscles intact, Sclera are normal, Conjunctiva are normal.] ENT [External ears normal to inspection, Nose examination normal, Mouth normal to inspection.] NECK [Normal ROM, No jugular venous distention, No meningeal signs, no midline tenderness or step-off noted.] RESPIRATORY CHEST [Chest is nontender, Breath sounds normal, No respiratory distress.] CARDIOVASCULAR [RRR, No murmurs, Normal S1 S2, No rub, No gallop.] ABDOMEN [Abdomen is nontender, No pulsatile masses, No other masses, Bowel sounds normal, No distension, No peritoneal signs, No hernias.] BACK [There is no CVA Tenderness, There is no tenderness to palpation, Normal inspec tion.] UPPER EXTREMITY [Inspection normal, No cyanosis, No clubbing, No edema, 2+ radial pulses.] LOWER EXTREMITY [Inspection normal, No cyanosis, No clubbing, No edema, No calf tenderness, 2+ femoral pulses.] NEURO [No focal motor deficits, No focal sensory deficits, Speech normal.] SKIN [Skin is warm, Skin is dry, Skin is normal color.] PSYCHIATRIC [Normal affect. ] (VERONICA STARKS IV) Course - Laboratory Result Diagrams: 10/01/20 04:55 10/01/20 04:55 - Consults Dr. Gray Time consulted: 05:50 - Dr. Gray requested that a troponin level be repeated to see if it was trending up, suggesting NSTEMI, or trending down. <VERONICA STARKS IV - Last Filed: 10/01/20 06:05> - Laboratory Result Diagrams: 10/01/20 04:55 10/01/20 12:42 <FUNMILAYO TELLO - Last Filed: 10/01/20 14:44> - Re-evaluation Re-evalutation: 10/01/20 10:09 Patient reports she is chest pain-free not having any discomfort. Patient is on 2 L nasal O2 and not showing any signs of respiratory distress. Patient reports that she was hungry and wanted to eat because her abdomen was begun began to hurt and she said she needed to eat. Patient is eating at this time not showing any distress. Case discussed with Dr. Gray regarding her repeat troponin which came back at 0.388 without any significant difference than the first troponin of 0.325. Dr. Gray has decided that patient will be admitted to the hospital on the telemetry ortega. (FUNMILAYO TELLO) - Vital Signs Vital signs: Temp Pulse Resp BP Pulse Ox 97.6 F 89 19 144/85 H 95 10/01/20 12:12 10/01/20 12:12 10/01/20 12:12 10/01/20 12:12 10/01/20 12:12 - Laboratory Laboratory results interpreted by me: 10/01/20 10/01/20 10/01/20 04:11 04:55 04:55 Hgb 11.2 L Hct 34.0 L RDW 17.0 H Lymph % (Auto) 7.3 L Absolute Neuts (auto) 8.5 H Seg Neutrophils % 83.8 H Potassium 3.5 L Chloride 86 L Carbon Dioxide 49 H* BUN 27 H Est GFR ( Amer) 56 L Est GFR (MDRD) Non-Af 47 L Glucose 113 H Calcium 10.3 H Urine Urobilinogen 2.0 H Ur Leukocyte Esterase TRACE H - EKG Interpretation by Me Additional EKG results interpreted by me: 10/01/20 04:09 EKG obtained on 10/01/2020 at 0356 hrs. was interpreted by this MD. Normal sinus rhythm, rate 89, normal axis, right bundle branch block is present, there are no obvious patterns of ST segment elevation, depression or reciprocal change present to suggest acute myocardial ischemia or infarction. When compared with EKG from 08/31/2020, morphology is grossly similar. Impression: Normal sinus rhythm with right bundle branch block and nonspecific ST segments. (VERONICA MULLER IV) - Consults Dr. Gray Reason for consultation: 10/01/20 05:56 weakness, falls, elevated troponin (VERONICA STARKS IV) Discharge <VERONICA STARKS IV - Last Filed: 10/01/20 06:05> - Discharge Admitting Provider: Isaac Unit Admitted: Telemetry <FUNMILAYO TELLO - Last Filed: 10/01/20 14:44> - Discharge Clinical Impression: Weakness, Hypokalemia, Dehydration, Troponin level elevated UTI (urinary tract infection) Qualifiers: Urinary tract infection type: site unspecified Hematuria presence: without hematuria Qualified Code(s): N39.0 - Urinary tract infection, site not specified Condition: Good Disposition: ADMITTED INPATIENT
[2020-10-01 04:45] LABS: APPEARANCE,URINE CLEAR; BILIRUBIN,URINE NEGATIVE (NEGATIVE); COLOR,URINE YELLOW; GLUCOSE, URINE NEGATIVE (NEGATIVE); KETONES,URINE NEGATIVE (NEGATIVE); LEUKOCYTE ESTERASE,URINE TRACE (NEGATIVE); NITRITE,URINE NEGATIVE (NEGATIVE); PROTEIN,URINE NEGATIVE (NEGATIVE); URINE SPECIFIC GRAVITY 1.013
[2020-10-01 05:11] LABS: ABSOLUTE BASOPHILS # (AUTO) 0.1 10^3/uL (0.0-0.2); ABSOLUTE EOSINOPHILS # (AUTO) 0.2 10^3/uL (0.0-0.6); ABSOLUTE LYMPHOCYTES (AUTO) 0.7 10^3/uL (0.5-4.7); ABSOLUTE MONOCYTES (AUTO) 0.6 10^3/uL (0.1-1.4); ABSOLUTE NEUT (AUTO) 8.5 10^3/uL (1.7-8.2); BASOPHILS % (AUTO) 0.7 % (0-2); EOSINOPHILS % (AUTO) 2.1 % (0-6); HEMOGLOBIN 11.2 g/dL (12.0-15.5); LYMPHOCYTES % (AUTO) 7.3 % (13-45); MEAN CORPUSCULAR HGB CONC 32.9 g/dL (32.0-36.0); MEAN CORPUSCULAR VOLUME 85 fl (80-97); MONOCYTES % (AUTO) 6.1 % (3-13); PLATELET COUNT 165 10^3/uL (150-450); RED BLOOD COUNT 3.98 10^6/uL (3.72-5.28); SEGMENTED NEUTROPHILS % (AUTO) 83.8 % (42-78); TOTAL CELLS COUNTED % (AUTO) 100 %; WHITE BLOOD COUNT 10.1 10^3/uL (4.0-10.5)
--- NOTE | 2020-10-01 05:15 | RADIOLOGY REPORT (SQ) ---
CT head without contrast on 10/01/2020 at 4:33 AM CLINICAL INDICATION: Extremity weakness, fall TECHNIQUE: Multiple axial images are obtained throughout the head without the administration of contrast. This exam was performed according to our departmental dose-optimization program, which includes automated exposure control, adjustment of the mA and/or kV according to patient size and/or use of iterative reconstruction technique. Total DLP is 884.15 mGy*cm. COMPARISON: None FINDINGS: There is generalized cerebral atrophy. There is low density in the periventricular white matter consistent with chronic small vessel ischemic changes. There is no hydrocephalus. There is no hemorrhage. There are no abnormal extra-axial fluid collections. There is no mass, mass effect or midline shift. There is no CT evidence of acute infarct. There is an unusual bony protuberance along the right upper aspect of the temporal bone. No acute bony abnormality is noted. IMPRESSION: Atrophy and chronic small vessel ischemic changes with no acute intracranial abnormality.
--- NOTE | 2020-10-01 05:17 | RADIOLOGY REPORT (SQ) ---
Pelvis x-ray single view on 10/01/2020 at 4:41 AM CLINICAL INDICATION: Weakness, fall, pain COMPARISON: CT from 08/30/2014 FINDINGS: There are no fractures. The hips are well located. The SI joints are well aligned. Multiple surgical clips are noted in the pelvis. Degenerative changes are partially imaged in the lower lumbar spine. Small incidental bone island is noted in the left femoral neck. IMPRESSION: No acute bony abnormality.
--- NOTE | 2020-10-01 05:20 | RADIOLOGY REPORT (SQ) ---
CHEST X-RAY 1 VIEW on 10/01/2020 at 4:42 AM CLINICAL INDICATION: Weakness, fall COMPARISON: 08/31/2020 FINDINGS: There is elevation of the right hemidiaphragm. There is mild adjacent right basilar atelectasis and/or scarring. Borderline cardiomegaly is noted. There is enlargement of the main pulmonary artery suggesting pulmonary arterial hypertension. There is minimal left basilar atelectasis or scarring. Lungs are otherwise clear. A few wires are noted projecting over the chest. IMPRESSION: Chronic findings as above with no acute disease.
[2020-10-01 05:28] LABS: ALBUMIN 3.5 g/dL (3.5-5.0); ALKALINE PHOSPHATASE 108 U/L (38-126); ASPARTATE AMINO TRANSFERASE 34 U/L (14-36); BILIRUBIN,DIRECT 0.1 mg/dL (0.0-0.4); BILIRUBIN,TOTAL 0.4 mg/dL (0.2-1.3); BLOOD UREA NITROGEN 27 mg/dL (7-20); CALCIUM 10.3 mg/dL (8.4-10.2); CHLORIDE 86 mmol/L (98-107); GLUCOSE 113 mg/dL (75-110); POTASSIUM 3.5 mmol/L (3.6-5.0); TOTAL PROTEIN 6.6 g/dL (6.3-8.2)
[2020-10-01 05:35] LABS: ANION GAP 7 (5-19)
[2020-10-01] MEDS ORDERED: NORMAL SALINE 500 ML IV ONE (05:42)
[2020-10-01] MEDS ORDERED: POTASSI CL 20 MEQ/50 ML RIDER 20 MEQ/50 ML RTUPB IV ONE (05:43)
[2020-10-01] MEDS ORDERED: POTASSIUM CHLORIDE 10 MEQ TABLET.ER PO ONE (05:43)
[2020-10-01] MEDS ORDERED: NITROFURANTOIN MONOHYD/M-CRYST 100 MG CAPSULE PO ONE (05:45)
[2020-10-01 05:51] LABS: CARBON DIOXIDE 49 mmol/L (22-30)
[2020-10-01] MEDS ORDERED: ACETAMINOPHEN 325 MG TABLET PO PRN (10:16)
--- NOTE | 2020-10-01 10:27 | PDOC H&P ---
History of Present Illness Admission Date/PCP: TARYN GARCIA MD Patient complains of: Weakness and falling History of Present Illness: MAURICIO SINGH is a 79 year old female This is a 79-year-old female with a significant history of the chronic respiratory failure on oxygen dependent COPD congestive heart failure hypertensions hyperlipidemia morbid obesity came to the emergency department with a complaining of for falling and the leg just gave out and patient is feeling weak Patient's denied any chest pain no short of breath no cough no congestions no c ontact with any Covid In the emergency department patient's have a blood work done was all stable ex cept the troponin was elevated Patient have a cardiac cath done in 2018 did not show any disease patient have a nuclear imaging was done [address] Morrell was not showing any myocardial infections at that time Patient is currently denied any chest pain no short of breath Patient initial CT head was negative also At this point we decided to admit the patient's because of the weakness falling and elevated troponin to further evaluations Past Medical History Cardiac Medical History: Reports: Congestive Heart Failure, Coronary Artery Disease, Hyperlipidema, Hypertension Denies: Myocardial Infarction Pulmonary Medical History: Reports: Chronic Obstructive Pulmonary Disease (COPD) - On home O2 at 2 L/min all the time., Sleep Apnea Denies: Asthma, Bronchitis, Pneumonia, Tuberculosis Neurological Medical History: Denies: Seizures Endocrine Medical History: Reports: Hypothyroidism GI Medical History: Reports: Gastroesophageal Reflux Disease Musculoskeltal Medical History: Reports: Arthritis, Gout Skin Medical History: Denies: Psoriasis Psychiatric Medical History: Denies: Depression Traumatic Medical History: Denies: Traumatic Brain Injury Hematology: Denies: Anemia, Sickle Cell Disease Infectious Medical History: Denies: HIV Past Surgical History Past Surgical History: Reports: Cholecystectomy, Hysterectomy Denies: Pacemaker Social History Information Source: Patient Smoking Status: Former Smoker Frequency of Alcohol Use: None Hx Recreational Drug Use: No Drugs: None Hx Prescription Drug Abuse: No Family History Family History: None, CAD, COPD, DM, Hypertension, Malignancy Parental Family History Reviewed: Yes Children Family History Reviewed: Yes Sibling(s) Family History Reviewed.: Yes Medication/Allergy Home Medications: Diclofenac Sodium [Voltaren] 4 gm TP QIDP PRN 03/09/18 Furosemide [Lasix] 40 mg PO DAILY 03/09/18 Levothyroxine Sodium 88 mcg PO Q6AM 03/09/18 Montelukast Sodium 10 mg PO DAILY 03/09/18 Verapamil HCl [Verapamil Sr] 240 mg PO QAM 03/09/18 Albuterol Sulfate [Albuterol Sulfate Hfa] 2 puff IH Q4HP PRN 11/11/19 Albuterol Sulfate [Ventolin 0.083% Neb 2.5 mg/3 mL Ampul] 1 vial NEB RTTIDP PRN 11/11/19 Aspirin [Ecotrin 81 mg EC Tablet] 81 mg PO DAILY 11/11/19 Atorvastatin Calcium [Lipitor 80 mg Tablet] 80 mg PO QHS 11/11/19 Fluticasone Propionate [Flonase Nasal [place] 50 Mcg/[place] 16 gm] 1 spray NAREB DAILY 11/11/19 Pantoprazole Sodium [Protonix [address] Tablet] 40 mg PO QAM 11/11/19 Albuterol Sulfate [Proair Hfa Inhalation Aerosol 8.5 gm Mdi] 1 puff IH Q4 PRN #1 mdi 11/13/19 Docusate Sodium [Colace 100 mg Capsule] 100 mg PO BID #60 capsule 11/13/19 Fluticasone/Umeclidin/Vilanter [Trelegy 100-62.5-25 Mcg Ellipta 14 Dose/Dpi] 1 each IH DAILY #2 inhaler 11/13/19 Ketotifen Fumarate [Zaditor] 5 ml OP DAILY #1 drops 11/13/19 Azithromycin [Zithromax 250 mg Tablet] 250 mg PO ASDIR PRN #6 tablet 07/03/20 Benzonatate [Tessalon Perles 100 mg Capsule] 100 mg PO Q8HP PRN #40 capsule 07/03/20 Diclofenac Sodium 100 gm TP BID PRN #100 gel..gram. 07/03/20 Amoxicillin 1 tab PO BID #14 tab 08/31/20 Azithromycin [Zithromax 250 mg Tablet] 250 mg PO DAILY #4 tablet 08/31/20 Allergies/Adverse Reactions: oxycodone HCl [From Percocet] Adverse Reaction (Verified 10/13/18 16:43) Review of Systems Constitutional: PRESENT: fatigue, weakness. ABSENT: chills, fever(s), headache(s), weight gain, weight loss Eyes: ABSENT: visual disturbances Ears: ABSENT: hearing changes Cardiovascular: ABSENT: chest pain, dyspnea on exertion, edema, orthropnea, palpitations Respiratory: ABSENT: cough, hemoptysis Gastrointestinal: ABSENT: abdominal pain, constipation, diarrhea, hematemesis, h ematochezia, nausea, vomiting Genitourinary: ABSENT: dysuria, hematuria Musculoskeletal: ABSENT: joint swelling Integumentary: ABSENT: rash, wounds Neurological: ABSENT: abnormal gait, abnormal speech, confusion, dizziness, focal weakness, syncope Psychiatric: ABSENT: anxiety, depression, homidical ideation, suicidal ideation Endocrine: ABSENT: cold intolerance, heat intolerance, menstrual abnormalities, polydipsia, polyuria Hematologic/Lymphatic: ABSENT: easy bleeding, easy bruising, lymphadenopathy Physical Exam Vital Signs: Temp Pulse Resp BP Pulse Ox 97.7 F 92 21 H 158/89 H 96 10/01/20 03:38 10/01/20 03:38 10/01/20 06:12 10/01/20 06:12 10/01/20 06:12 Intake & Output 09/30/20 10/01/20 10/02/20 06:59 06:59 06:59 Intake Total 550 Balance 550 Weight 94.6 kg General appearance: PRESENT: no acute distress, well-developed, well-nourished Head exam: PRESENT: atraumatic, normocephalic Eye exam: PRESENT: conjunctiva pink, EOMI, PERRLA. ABSENT: scleral icterus Ear exam: PRESENT: normal external ear exam Mouth exam: PRESENT: moist, tongue midline Neck exam: PRESENT: full ROM. ABSENT: carotid bruit, JVD, lymphadenopathy, thyromegaly Respiratory exam: PRESENT: clear to auscultation phillip Cardiovascular exam: PRESENT: RRR. ABSENT: diastolic murmur, rubs, systolic murmur Pulses: PRESENT: normal dorsalis pedis pul, +2 pedal pulses bilateral Vascular exam: PRESENT: normal capillary refill GI/Abdominal exam: PRESENT: normal bowel sounds, soft. ABSENT: distended, guarding, mass, organolmegaly, rebound, tenderness Rectal exam: PRESENT: deferred Neurological exam: PRESENT: alert, awake, oriented to person, oriented to place, oriented to time, oriented to situation, CN II-XII grossly intact. ABSENT: motor sensory deficit Psychiatric exam: PRESENT: appropriate affect, normal mood. ABSENT: homicidal ideation, suicidal ideation Skin exam: PRESENT: dry, intact, warm. ABSENT: cyanosis, rash Results Laboratory Results: 10/01/20 04:55 10/01/20 04:55 10/01/20 10/01/20 10/01/20 04:11 04:55 04:55 WBC 10.1 RBC 3.98 Hgb 11.2 L Hct 34.0 L MCV 85 MCH 28.0 MCHC 32.9 RDW 17.0 H Plt Count 165 Seg Neutrophils % 83.8 H Sodium 142.3 Potassium 3.5 L Chloride 86 L Carbon Dioxide 49 H* Anion Gap 7 BUN 27 H Creatinine 1.12 Est GFR ( Amer) 56 L Glucose 113 H Calcium 10.3 H Total Bilirubin 0.4 AST 34 Alkaline Phosphatase 108 Total Protein 6.6 Albumin 3.5 Urine Color YELLOW Urine Appearance CLEAR Urine pH 6.0 Ur Specific [place] 1.013 Urine Protein NEGATIVE Urine Glucose (UA) NEGATIVE Urine Ketones NEGATIVE Urine Blood NEGATIVE Urine Nitrite NEGATIVE Ur Leukocyte Esterase TRACE H Urine WBC (Auto) 3 Urine RBC (Auto) 1 10/01/20 10/01/20 04:55 08:26 Troponin I 0.325 0.388 Impressions: Head CT 10/01/20 04:12 IMPRESSION: Atrophy and chronic small vessel ischemic changes with no acute intracranial abnormality. Chest X-Ray 10/01/20 04:14 IMPRESSION: Chronic findings as above with no acute disease. Pelvis X-Ray 10/01/20 04:15 IMPRESSION: No acute bony abnormality. Assessment & Plan - Diagnosis (1) Acute and chronic respiratory failure Qualifiers: Respiratory failure complication: hypercapnia Qualified Code(s): J96.22 - Acute and chronic respiratory failure with hypercapnia Is this a current diagnosis for this admission?: Yes Plan: We will continues the using the BiPAP Patient have a chronic respiratory failure currently all stable We will continue to monitor Get the ABG Get the CT of the chest without contrast (2) Troponin level elevated Is this a current diagnosis for this admission?: Yes Plan: mismatch due to the chronic respiratory failure and COPD unlikely to be any acute coronary syndromes will admit to rule out consult to Dr. Morrell (3) Weakness Is this a current diagnosis for this admission?: Yes Plan: We will get the physical therapy evaluations (4) COPD (chronic obstructive pulmonary disease) Qualifiers: Emphysema type: unspecified Is this a current diagnosis for this admission?: Yes Plan: Continues the nebulizer treatments (5) Coronary artery disease Qualifiers: Coronary Disease-Associated Artery/Lesion type: [place] artery Associated angina: without angina Is this a current diagnosis for this admission?: Yes Plan: We will rule out the acute coronary syndromes (6) GERD (gastroesophageal reflux disease) Qualifiers: Esophagitis presence: without esophagitis Is this a current diagnosis for this admission?: Yes Plan: Treatments the Pepcid (7) HLD (hyperlipidemia) Qualifiers: Hyperlipidemia type: unspecified Is this a current diagnosis for this admission?: Yes (8) Hypertension Qualifiers: Hypertension type: essential hypertension Is this a current diagnosis for this admission?: Yes Plan: continue to current medications (9) YELITZA (obstructive sleep apnea) Is this a current diagnosis for this admission?: Yes - Time Time Spent: 30 to 50 Minutes Medications reviewed and adjusted accordingly: Yes Anticipated Discharge Disposition: Home with Home Health Anticipated Discharge Timeframe: within 72 hours - Inpatient Certification Based on my medical assessment, after consideration of the patient's comorbidities, presenting symptoms, or acuity I expect that the services needed warrant INPATIENT care.: Yes I certify that my determination is in accordance with my understanding of Medicare's requirements for reasonable and necessary INPATIENT services [42 CFR 412.3e].: Yes Medical Necessity: Significant Comorbidiites Make Outpatient Treatment Too Risky, Need Close Monitoring Due to Risk of Patient Decompensation, Need for IV Antibiotics Post Hospital Care: D/C [employer] Documentation - Plan Summary Plan Summary: Admit the patient in a telemetry bed Consult cardiology Continues to monitor
--- NOTE | 2020-10-01 11:27 | RADIOLOGY REPORT (SQ) ---
EXAM DESCRIPTION: CT CHEST WITHOUT IMAGES COMPLETED DATE/TIME: 10/01/2020 10:53 am REASON FOR STUDY: sob COMPARISON: 11/02/2019 TECHNIQUE: CT scan performed of the chest without intravenous contrast. Images reviewed with lung, soft tissue and bone windows. Reconstructed coronal and sagittal MPR images reviewed. All images st ored on PACS. All CT scanners at this facility use dose modulation, iterative reconstruction, and/or weight based d osing when appropriate to reduce radiation dose to as low as reasonably achievable (ALARA). [facility]: Dose Right [facility]: CareDose [facility]: Dose Right [facility]: Teradose 4D [facility]: [employer] RADIATION DOSE: CT Rad equipment meets quality standard of care and radiation dose reduction techniq ues were employed. CTDIvol: 7.4 mGy. DLP: 261 mGy-cm. mGy. LIMITATIONS: No technical limitations. FINDINGS: LUNGS AND PLEURA: No masses, infiltrates, or pneumothorax. No pleural effusions or pleura l calcifications. Chronic atelectasis. HILAR AND MEDIASTINAL STRUCTURES: Chronic elevation of the right hemidiaphragm. HEART AND VASCULAR STRUCTURES: No aneurysm. No pericardial effusion. UPPER ABDOMEN: No significant findings. Limited exam. THYROID AND OTHER SOFT TISSUES: No masses. No adenopathy. BONES: No significant finding. HARDWARE: None in the chest. OTHER: No other significant findings. IMPRESSION: Chronic elevation of the right hemidiaphragm and atelectasis. No acute findings. TECHNICAL DOCUMENTATION: JOB ID: [id number] Quality ID # [id number]: Final reports with documentation of one or more dose reduction techniques (e.g., Au tomated exposure control, adjustment of the mA and/or kV according to patient size, use of iterative reconstruction technique) 2010 [employer] All Rights Reserved Reading location - IP/workstation name: [email or web address]
[2020-10-01] MEDS: ENOXAPARIN SODIUM INJ 40 MG/0.4 ML DISP.SYRIN SUBCUT SCH (11:49)
[2020-10-01 13:07] LABS: BLOOD UREA NITROGEN 24 mg/dL (7-20); CHLORIDE 88 mmol/L (98-107); CREATINE KINASE 128 U/L (30-135); GLUCOSE 104 mg/dL (75-110); POTASSIUM 3.8 mmol/L (3.6-5.0)
[2020-10-01 13:18] LABS: CREATINE KINASE MB 2.22 ng/mL (<4.55); TROPONIN I 0.433 ng/mL
[2020-10-01 13:21] LABS: ANION GAP 4 (5-19); CARBON DIOXIDE 49 mmol/L (22-30)
[2020-10-01] MEDS: IPRATROPIUM/ALBUTEROL 0.5-2.5 MG/3 ML AMPUL NEB SCH ×2 (14:44→21:05)
[2020-10-01 14:50] LABS: FREE T3 2.36 pg/mL (2.77-5.27); FREE T4 (FREE THYROXINE) 1.15 ng/dL (0.78-2.19)
[2020-10-01 15:03] LABS: THYROID STIMULATING HORMONE 0.91 uIU/mL (0.47-4.68)
[2020-10-01] MEDS ORDERED: ALBUTEROL SULFATE HFA (90 MCG/PUFF) 8 GM MDI (1 MDI/ER DISP) IH PRN (15:37)
[2020-10-01] MEDS ORDERED: ALBUTEROL SULFATE HFA (90 MCG/PUFF) 8 GM MDI IH PRN (15:56)
[2020-10-01] MEDS ORDERED: CEFTRIAXONE 1 GM/D5W RTU 1 GM/50 ML RTUPB IV SCH (17:00)
--- NOTE | 2020-10-01 17:59 | RADIOLOGY REPORT (SQ) ---
EXAM DESCRIPTION: KNEE BILATERAL 1-2 VIEWS IMAGES COMPLETED DATE/TIME: 10/01/2020 3:59 pm REASON FOR STUDY: knee pain COMPARISON: Bilateral knees x-ray 02/20/2015. NUMBER OF VIEWS: Four views. TECHNIQUE: AP and lateral radiographic images acquired of the right and left knees. LIMITATIONS: None. FINDINGS: RIGHT KNEE: MINERALIZATION: Normal. BONES: No acute fracture or dislocation. JOINT: Small effusion. Interval increase in the tricompartmental degenerative changes with joint spa ce narrowing and osteophytosis, worse at the lateral tibiofemoral compartment. SOFT TISSUES: There is diffuse soft tissue edema. LEFT KNEE: MINERALIZATION: Normal. BONES: No acute fracture or dislocation. JOINT: Small effusion. Interval increase in the tricompartmental degenerative changes with joint spac e narrowing and osteophytosis. SOFT TISSUES: There is diffuse soft tissue edema. IMPRESSION: No radiographic evidence for acute fracture at the right knee or left knee. Interval wo rsening at the degenerative changes at the bilateral knees. Small bilateral joint effusions. Diffus e soft tissue edema. TECHNICAL DOCUMENTATION: JOB ID: [id number] [place]-[id number] 2010 [employer]- All Rights Reserved Reading location - IP/workstation name: [email or web address]
--- NOTE | 2020-10-01 18:16 | EKG REPORT ---
SEVERITY:- ABNORMAL ECG - SINUS RHYTHM LAD, CONSIDER LEFT ANTERIOR FASCICULAR BLOCK CONSIDER ANTERIOR INFARCT : Confirmed by: Adan Swann MD 01-Oct-2020 18:15:49
--- NOTE | 2020-10-01 18:17 | EKG REPORT ---
SEVERITY:- ABNORMAL ECG - SINUS RHYTHM ATRIAL PREMATURE COMPLEX IVCD, CONSIDER ATYPICAL RBBB PROBABLE ANTERIOR INFARCT, ACUTE : Confirmed by: Adan Swann MD 01-Oct-2020 18:16:38
--- NOTE | 2020-10-01 19:53 | PDOC CONSULTATION ---
Consultation-Blank Consultation: CARDIOLOGY CONSULTATION by Dr. Sheila Florentino on 10/01/2020. Patient seen at 1 PM. 60 minutes spent on this patient more than 50% of time spent in direct patient care. REASON FOR CONSULTATION: Elevated troponin I in a patient was asymptomatic without chest pain or shortness of breath. CONSULT REQUESTING PHYSICIAN: Dr. Gray. HISTORY OF PRESENT ILLNESS: Patient is a 79-year-old Afro-Bangladeshi female who appears to be older than his stated age and mildly overweight who has a history of COPD on home oxygen, hypertension, hypothyroidism, and history of sleep apnea who does not use CPAP, and who by recent echo had moderate pulmonary hypertension admitted with generalized fatigue and weakness. The patient states that her knees gave way due to weakness and she fell although she had no loss of consciousness and no injury. She denies any shortness of breath chest pain or discomfort. There is no palpitations. There is no symptoms suggestive of acute exacerbation of COPD. There is no evidence of any leg edema palpitations or syncope. The patient's laboratory data were all within normal limits, but the patient's troponin came back elevated. The patient 2018 and elevated troponin I and underwent a cardiac catheterization at [place], and this showed that she had no significant coronary artery disease. The patient again was admitted with acute exacerbation of COPD in November 2018 at which time she was also noted to have elevated troponin. A in fact AVID scan was negative for evidence of AL. It seems that the patient chronically has elevated troponin. All other labs are within normal limits including thyroid function test which within normal limits. The patient has been counseled in the past and advised to wear CPAP for her sleep apnea,. Past Medical History Cardiac Medical History: Reports: Congestive Heart Failure, Coronary Artery Disease, Hyperlipidema, Hypertension Denies: Myocardial Infarction Pulmonary Medical History: Reports: Chronic Obstructive Pulmonary Disease (COPD) - On home O2 at 2 L/min all the time., Sleep Apnea. She has obstructive sleep apnea but is not compliant with CPAP. Denies: Asthma, Bronchitis, Pneumonia, Tuberculosis Neurological Medical History: Denies: Seizures Endocrine Medical History: Reports: Hypothyroidism GI Medical History: Reports: Gastroesophageal Reflux Disease Musculoskeltal Medical History: Reports: Arthritis, Gout Psychiatric Medical History: Denies: Depression Hematology: Denies: Anemia Past Surgical History Past Surgical History: Reports: Cholecystectomy, Hysterectomy Denies: Pacemaker Social History Information Source: Patient Lives with: Family Smoking Status: Former Smoker Frequency of Alcohol Use: None Hx Recreational Drug Use: No Drugs: None Hx Prescription Drug Abuse: No RESUSCITATION STATUS: The patient is a full code. Her daughter is her surrogate healthcare decision maker. Family History Family History: None, Reviewed & Not Pertinent, CAD, COPD, DM, Hypertension, Malignancy Parental Family History Reviewed: Yes Children Family History Reviewed: Yes Sibling(s) Family History Reviewed.: Yes Current Medications Generic Name Dose Route Start Last Admin Trade Name Freq PRN Reason Stop Dose Admin Acetaminophen 650 mg 10/01/20 10:16 Tylenol 325 Mg Tablet PO 10/31/20 10:15 Q4HP PRN FOR PAIN OR TEMP Albuterol 2 puff 10/01/20 15:56 Ventolin Hfa 8 Gm Mdi IH 10/31/20 15:55 Q4HP PRN SHORTNESS OF BREATH Albuterol/Ipratropium 3 ml 10/01/20 14:00 10/01/20 14:44 Duoneb 3 Ml Ampul NEB 10/31/20 13:59 3 ml [id number] MARJORIE Administration Atorvastatin Calcium 80 mg 10/01/20 22:00 Lipitor 80 Mg Tablet PO 10/31/20 21:59 QHS AMRJORIE Enoxaparin Sodium 40 mg 10/01/20 11:00 10/01/20 11:49 Lovenox Inj 40 Mg/0.4 Ml Disp.Syrin SUBCUT 10/31/20 10:59 40 mg DAILY MARJORIE Administration Famotidine 20 mg 10/01/20 22:00 Pepcid 20 Mg Tablet PO 10/31/20 21:59 Q12 MARJORIE Fluticasone Propionate 1 spray 10/02/20 10:00 Flonase Nasal [place] 50 Mcg/[place] 16 Gm NASL 11/01/20 09:59 DAILY MARJORIE Furosemide 40 mg 10/02/20 10:00 Lasix 40 Mg Tablet PO 11/01/20 09:59 DAILY MARJORIE Ceftriaxone Sodium/Dextrose 1 gm in 50 mls @ 100 mls/hr 10/01/20 17:00 10/01/20 19:37 Rocephin Rtu 1 Gm/D5w 50 Ml Premix IV 10/08/20 16:59 Infused QPM MARJORIE Infusion Levothyroxine Sodium 0.088 mg 10/02/20 06:00 Synthroid 0.088 Mg Tablet PO 11/01/20 05:59 Q6AM [facility] Montelukast Sodium 10 mg 10/01/20 22:00 Singulair 10 Mg Tablet PO 10/31/20 21:59 QHS [facility] Verapamil HCl 240 mg 10/02/20 08:00 Calan Sr 240 Mg Tablet.Sa PO 11/01/20 07:59 QAM [facility] Discontinued Medications Generic Name Dose Route Start Last Admin Trade Name Freq PRN Reason Stop Dose Admin Sodium Chloride 500 mls @ 0 mls/hr 10/01/20 05:42 10/01/20 07:11 Nacl 0.9% 500 Ml Iv Soln IV 10/01/20 05:43 Infused NOW ONE Infusion Wide Open Potassium Chloride/Water 20 meq in 50 mls @ 25 mls/hr 10/01/20 05:43 10/01/20 10:14 Potassium Chloride Remi 20 Meq/50 Ml IV 10/01/20 07:42 Infused NOW ONE Infusion Levofloxacin 500 mg 10/02/20 10:00 Levaquin 500 Mg Tablet PO 10/09/20 09:59 DAILY [facility] Nitrofurantoin Macrocrystals 100 mg 10/01/20 05:45 10/01/20 06:07 Macrobid 100 Mg Capsule PO 10/01/20 05:46 100 mg NOW ONE Administration Potassium Chloride 40 meq 10/01/20 05:43 10/01/20 06:07 Klor-Con 10 Meq Tablet Er PO 10/01/20 05:44 40 meq NOW ONE Administration Medication/Allergy: Albuterol Sulfate [Proair Hfa Inhalation Aerosol 8.5 gm Mdi] 2 puff IH Q4HP PRN 10/01/20 Atorvastatin Calcium [Lipitor 80 mg Tablet] 80 mg PO QHS 10/01/20 Fluticasone Propionate [Flonase Nasal [place] 50 Mcg/[place] 16 gm] 1 spray NS DAILY 10/01/20 Furosemide [Lasix] 40 mg PO DAILY 10/01/20 Levothyroxine Sodium [Synthroid 0.088 mg Tablet] 88 mcg PO DAILY 10/01/20 Montelukast Sodium [Singulair 10 mg Tablet] 10 mg PO QHS 10/01/20 Pantoprazole Sodium 40 mg PO DAILY 10/01/20 Verapamil HCl [Verapamil ER] 240 mg PO QAM 10/01/20 Allergies/Adverse Reactions: oxycodone HCl [From Percocet] Adverse Reaction (Verified 10/13/18 16:43) Review of Systems Constitutional: PRESENT: fatigue. ABSENT: chills, fever(s), headache(s), weight gain, weight loss Eyes: ABSENT: visual disturbances Ears: ABSENT: hearing changes Cardiovascular: PRESENT: dyspnea on exertion. ABSENT: chest pain, edema, orthropnea, palpitations Respiratory: PRESENT: cough, dyspnea. ABSENT: hemoptysis Gastrointestinal: ABSENT: abdominal pain, constipation, diarrhea, hematemesis, hematochezia, nausea, vomiting Genitourinary: ABSENT: dysuria, hematuria Musculoskeletal: ABSENT: joint swelling Integumentary: ABSENT: rash, wounds Neurological: ABSENT: abnormal gait, abnormal speech, confusion, dizziness, focal weakness, syncope Psychiatric: ABSENT: anxiety, depression, homidical ideation, suicidal ideation Endocrine: ABSENT: cold intolerance, heat intolerance, menstrual abnormalities, polydipsia, polyuria Hematologic/Lymphatic: ABSENT: easy bleeding, easy bruising, lymphadenopathy PHYSICAL EXAMINATION: The patient appears to be chronically ill. In no acute distress. She appears older than his stated age. Selected Entries 10/01/20 10/01/20 11:01 12:12 Temperature 97.6 F Temperature Oral Source Pulse Rate [ 89 monitor] Heart Rate ( 88 Monitors) Respiratory 19 Rate Blood Pressure 144/85 H [right arm] Blood Pressure 104 Mean [right arm ] O2 Sat by Pulse 95 Oximetry Oxygen Delivery Nasal Cannula Method ( includes room air) Oxygen Flow 2 Rate HEAD: Is atraumatic normocephalic. EYES: Pupils equal round regular reactive light accommodation. HEENT is negative. NECK: Supple. There is no JVD. Carotids are equal there is no bruits. There is no lymphadenopathy. LUNGS: There is diminished air entry prolonged expiration. There is hyperresonance on percussion. Otherwise there is no rhonchi or wheezing. Few dry crackles in both the bases. No evidence of rales of CHF. HEART: S1-S2 is heard. There is no S3 gallop. There is no S4 gallop. There is systolic murmur left sternal border and the apex there is no rub. ABDOMEN: Is soft and mildly obese. There is no hepatosplenomegaly. Bowel sounds well heard. EXTREMITIES: There is diminished femorals without bruits. Leg pulses are well felt. There is trace pedal edema. There is no DVT or cellulitis. There is no calf tenderness. SAMPLE COLLECTOR: The patient is conscious awake alert oriented x3 with no focal deficit. PSYCHIATRIC: Patient judgment insight are intact her affect is normal. Labs- Entire Visit 10/01/20 10/01/20 10/01/20 04:11 04:55 04:55 WBC 10.1 RBC 3.98 Hgb 11.2 L Hct 34.0 L MCV 85 MCH 28.0 MCHC 32.9 RDW 17.0 H Plt Count 165 Lymph % (Auto) 7.3 L [place] % (Auto) 6.1 Eos % (Auto) 2.1 Baso % (Auto) 0.7 Absolute Neuts (auto) 8.5 H Absolute Lymphs (auto) 0.7 Absolute Monos (auto) 0.6 Absolute Eos (auto) 0.2 Absolute Basos (auto) 0.1 Seg Neutrophils % 83.8 H Sodium 142.3 Potassium 3.5 L Chloride 86 L Carbon Dioxide 49 H* Anion Gap 7 BUN 27 H Creatinine 1.12 Est GFR ( Amer) 56 L Est GFR (MDRD) Non-Af 47 L Glucose 113 H Calcium 10.3 H Total Bilirubin 0.4 Direct Bilirubin 0.1 Neonat Total Bilirubin Not Reportable Neonat Direct Bilirubin Not Reportable Neonat Indirect Bili Not Reportable AST 34 ALT 19 Alkaline Phosphatase 108 Creatine Kinase CK-MB (CK-2) Troponin I Total Protein 6.6 Albumin 3.5 TSH Free T4 Free T3 pg/mL Urine Color YELLOW Urine Appearance CLEAR Urine pH 6.0 Ur Specific [place] 1.013 Urine Protein NEGATIVE Urine Glucose (UA) NEGATIVE Urine Ketones NEGATIVE Urine Blood NEGATIVE Urine Nitrite NEGATIVE Urine Bilirubin NEGATIVE Urine Urobilinogen 2.0 H Ur Leukocyte Esterase TRACE H Urine WBC (Auto) 3 Urine RBC (Auto) 1 U Hyaline Cast (Auto) 6 Squamous Epi Cells Auto 2 Urine Mucus (Auto) RARE Urine Ascorbic Acid NEGATIVE 10/01/20 10/01/20 10/01/20 04:55 08:26 12:42 WBC RBC Hgb Hct MCV MCH MCHC RDW Plt Count Lymph % (Auto) [place] % (Auto) Eos % (Auto) Baso % (Auto) Absolute Neuts (auto) Absolute Lymphs (auto) Absolute Monos (auto) Absolute Eos (auto) Absolute Basos (auto) Seg Neutrophils % Sodium 140.8 Potassium 3.8 Chloride 88 L Carbon Dioxide 49 H* Anion Gap 4 L BUN 24 H Creatinine 0.89 Est GFR ( Amer) > 60 Est GFR (MDRD) Non-Af > 60 Glucose 104 Calcium 10.0 Total Bilirubin Direct Bilirubin Neonat Total Bilirubin Neonat Direct Bilirubin Neonat Indirect Bili AST ALT Alkaline Phosphatase Creatine Kinase 128 CK-MB (CK-2) Troponin I 0.325 0.388 Total Protein Albumin TSH Free T4 Free T3 pg/mL Urine Color Urine Appearance Urine pH Ur Specific [place] Urine Protein Urine Glucose (UA) Urine Ketones Urine Blood Urine Nitrite Urine Bilirubin Urine Urobilinogen Ur Leukocyte Esterase Urine WBC (Auto) Urine RBC (Auto) U Hyaline Cast (Auto) Squamous Epi Cells Auto Urine Mucus (Auto) Urine Ascorbic Acid 10/01/20 10/01/20 12:42 12:42 WBC RBC Hgb Hct MCV MCH MCHC RDW Plt Count Lymph % (Auto) [place] % (Auto) Eos % (Auto) Baso % (Auto) Absolute Neuts (auto) Absolute Lymphs (auto) Absolute Monos (auto) Absolute Eos (auto) Absolute Basos (auto) Seg Neutrophils % Sodium Potassium Chloride Carbon Dioxide Anion Gap BUN Creatinine Est GFR ( Amer) Est GFR (MDRD) Non-Af Glucose Calcium Total Bilirubin Direct Bilirubin Neonat Total Bilirubin Neonat Direct Bilirubin Neonat Indirect Bili AST ALT Alkaline Phosphatase Creatine Kinase CK-MB (CK-2) 2.22 Troponin I 0.433 Total Protein Albumin TSH 0.91 Free T4 1.15 Free T3 pg/mL 2.36 L Urine Color Urine Appearance Urine pH Ur Specific [place] Urine Protein Urine Glucose (UA) Urine Ketones Urine Blood Urine Nitrite Urine Bilirubin Urine Urobilinogen Ur Leukocyte Esterase Urine WBC (Auto) Urine RBC (Auto) U Hyaline Cast (Auto) Squamous Epi Cells Auto Urine Mucus (Auto) Urine Ascorbic Acid Chest CT 10/01/20 00:00 IMPRESSION: Chronic elevation of the right hemidiaphragm and atelectasis. No acute findings. Knee X-Ray 10/01/20 00:00 IMPRESSION: No radiographic evidence for acute fracture at the right knee or left knee. Interval worsening at the degenerative changes at the bilateral knees. Small bilateral joint effusions. Diffuse soft tissue edema. Head CT 10/01/20 04:12 IMPRESSION: Atrophy and chronic small vessel ischemic changes with no acute intracranial abnormality. Chest X-Ray 10/01/20 04:14 IMPRESSION: Chronic findings as above with no acute disease. Pelvis X-Ray 10/01/20 04:15 IMPRESSION: No acute bony abnormality. Recent Echocardiogram Done in My Office: [09/23/2020] Shows Normal Left Ventricular Chamber Size Wall Motion and Ejection Fraction. There Is Mild LV Diastolic Dysfunction. There Is Moderate Pulmonary Hypertension. Please See Report EKG: Sinus rhythm. Nonspecific IVCD left anterior fascicular block. Consider old anterior AL. IMPRESSION/RECOMMENDATION: 1. Elevated troponin levels secondary to supply demand mismatch/type II AL. No evidence of non-ST relation AL. Elevated troponin . Patient probably has chronically elevated troponin versus this being secondary to lab interference due to heterophile antibodies. Hence will not treat this acute coronary syndrome. 2. Mild hypokalemia: The patient's potassium has been replaced. 3.Chronic respiratory failure: Continue current treatment. No acute process at present. 4. COPD.: Continue bronchodilators steroids and antibiotics. No acute exacerbation of COPD. 5. Moderate pulmonary hypertension by recent echo. 6. Obstructive sleep apnea: Patient noncompliant to CPAP/BiPAP. This is in spite of repeated reinforcement describing the benefits of wearing CPAP/BiPAP. 7. Hypertension: Continue current medication blood pressure well controlled. Medications reviewed. Medical regimen management plan discussed with attending provider on the case. Medical decision making is of high complexity. Case discussed with the patient and the patient's daughter. Will follow.
[2020-10-01 19:54] LABS: CREATINE KINASE MB 1.73 ng/mL (<4.55); TROPONIN I 0.418 ng/mL
[2020-10-01] MEDS: MONTELUKAST SODIUM 10 MG TABLET PO SCH (21:12)
[2020-10-01] MEDS: FAMOTIDINE 20 MG TABLET PO SCH (21:12)
[2020-10-01] MEDS: ATORVASTATIN CALCIUM 80 MG TABLET PO SCH (21:13)
[2020-10-02] MEDS ORDERED: AMLODIPINE BESYLATE 2.5 MG TABLET ONE (01:24)
[2020-10-02 01:49] LABS: CREATINE KINASE MB 1.56 ng/mL (<4.55); TROPONIN I 0.404 ng/mL
[2020-10-02] MEDS: AMLODIPINE BESYLATE 2.5 MG TABLET PO SCH ×3 (02:21→21:25)
[2020-10-02 05:07] LABS: ABSOLUTE EOSINOPHILS # (AUTO) 0.3 10^3/uL (0.0-0.6); ABSOLUTE MONOCYTES (AUTO) 0.6 10^3/uL (0.1-1.4); ABSOLUTE NEUT (AUTO) 5.1 10^3/uL (1.7-8.2); BASOPHILS % (AUTO) 0.7 % (0-2); EOSINOPHILS % (AUTO) 4.8 % (0-6); HEMATOCRIT 32.8 % (36.0-47.0); HEMOGLOBIN 10.6 g/dL (12.0-15.5); LYMPHOCYTES % (AUTO) 14.6 % (13-45); MEAN CORPUSCULAR HEMOGLOBIN 27.6 pg (27.0-33.4); MEAN CORPUSCULAR HGB CONC 32.3 g/dL (32.0-36.0); MEAN CORPUSCULAR VOLUME 85 fl (80-97); MONOCYTES % (AUTO) 8.7 % (3-13); PLATELET COUNT 164 10^3/uL (150-450); RED BLOOD COUNT 3.84 10^6/uL (3.72-5.28); RED CELL DISTRIBUTION WIDTH 17.3 % (11.5-14.0); SEGMENTED NEUTROPHILS % (AUTO) 71.2 % (42-78); TOTAL CELLS COUNTED % (AUTO) 100 %; WHITE BLOOD COUNT 7.2 10^3/uL (4.0-10.5)
[2020-10-02] MEDS: LEVOTHYROXINE SODIUM 0.088 MG TABLET PO SCH (06:08)
[2020-10-02] MEDS ORDERED: (PENDING PHARMACY ID) (Verapamil Hcl [Verapamil Er] 240 MG) PO SCH (08:00)
[2020-10-02] MEDS: IPRATROPIUM/ALBUTEROL 0.5-2.5 MG/3 ML AMPUL NEB SCH ×3 (08:37→20:39)
--- NOTE | 2020-10-02 09:17 | PDOC PROGRESS REPORT ---
Subjective Date:: 10/02/20 Subjective:: Patient is currently doing well Patient's denied any chest pain no short of breath Patient's x-ray of the knee arthritis and mild soft tissue swelling Reason For Visit: WEAKNESS,SOB AND ELEVATED TROPONIN Physical Exam Vital Signs: Temp Pulse Resp BP Pulse Ox 98.6 F 90 16 121/65 91 L 10/02/20 03:46 10/02/20 08:39 10/02/20 08:39 10/02/20 03:46 10/02/20 08:39 Intake & Output 10/01/20 10/02/20 10/03/20 06:59 06:59 06:59 Intake Total 1160 Output Total 600 Balance 560 Weight 94.6 kg 89.8 kg General appearance: PRESENT: no acute distress, well-developed, well-nourished Head exam: PRESENT: atraumatic, normocephalic Eye exam: PRESENT: conjunctiva pink, EOMI, PERRLA. ABSENT: scleral icterus Ear exam: PRESENT: normal external ear exam Mouth exam: PRESENT: moist, tongue midline Neck exam: PRESENT: full ROM. ABSENT: carotid bruit, JVD, lymphadenopathy, thyromegaly Respiratory exam: PRESENT: clear to auscultation phillip Cardiovascular exam: PRESENT: RRR. ABSENT: diastolic murmur, rubs, systolic murmur Vascular exam: PRESENT: normal capillary refill GI/Abdominal exam: PRESENT: normal bowel sounds, soft. ABSENT: distended, guarding, mass, organolmegaly, rebound, tenderness Rectal exam: PRESENT: deferred Musculoskeletal exam: PRESENT: ambulatory Neurological exam: PRESENT: alert, awake, oriented to person, oriented to place, oriented to time, oriented to situation, CN II-XII grossly intact. ABSENT: motor sensory deficit Psychiatric exam: PRESENT: appropriate affect, normal mood. ABSENT: homicidal ideation, suicidal ideation Skin exam: PRESENT: dry, intact, warm. ABSENT: cyanosis, rash Results Laboratory Results: 10/02/20 04:20 10/01/20 12:42 10/01/20 10/01/20 10/02/20 12:42 12:42 04:20 WBC 7.2 RBC 3.84 Hgb 10.6 L Hct 32.8 L MCV 85 MCH 27.6 MCHC 32.3 RDW 17.3 H Plt Count 164 Seg Neutrophils % 71.2 Sodium 140.8 Potassium 3.8 Chloride 88 L Carbon Dioxide 49 H* Anion Gap 4 L BUN 24 H Creatinine 0.89 Est GFR ( Amer) > 60 Glucose 104 Calcium 10.0 Magnesium TSH 0.91 Free T4 1.15 Free T3 pg/mL 2.36 L 10/02/20 04:20 WBC RBC Hgb Hct MCV MCH MCHC RDW Plt Count Seg Neutrophils % Sodium Potassium Chloride Carbon Dioxide Anion Gap BUN Creatinine Est GFR ( Amer) Glucose Calcium Magnesium 2.0 TSH Free T4 Free T3 pg/mL 10/01/20 10/01/20 10/01/20 04:55 08:26 12:42 Creatine Kinase 128 CK-MB (CK-2) Troponin I 0.325 0.388 NT-Pro-B Natriuret Pep 10/01/20 10/01/20 10/01/20 12:42 19:00 19:00 Creatine Kinase 126 CK-MB (CK-2) 2.22 1.73 Troponin I 0.433 0.418 NT-Pro-B Natriuret Pep 10/02/20 10/02/20 10/02/20 01:00 01:00 04:20 Creatine Kinase 123 CK-MB (CK-2) 1.56 Troponin I 0.404 NT-Pro-B Natriuret Pep 1030 H Impressions: Chest CT 10/01/20 00:00 IMPRESSION: Chronic elevation of the right hemidiaphragm and atelectasis. No acute findings. Knee X-Ray 10/01/20 00:00 IMPRESSION: No radiographic evidence for acute fracture at the right knee or left knee. Interval worsening at the degenerative changes at the bilateral knees. Small bilateral joint effusions. Diffuse soft tissue edema. Head CT 10/01/20 04:12 IMPRESSION: Atrophy and chronic small vessel ischemic changes with no acute intracranial abnormality. Chest X-Ray 10/01/20 04:14 IMPRESSION: Chronic findings as above with no acute disease. Pelvis X-Ray 10/01/20 04:15 IMPRESSION: No acute bony abnormality. Assessment & Plan - Diagnosis (1) Acute and chronic respiratory failure Qualifiers: Respiratory failure complication: hypercapnia Qualified Code(s): J96.22 - Acute and chronic respiratory failure with hypercapnia Is this a current diagnosis for this admission?: Yes (2) Troponin level elevated Is this a current diagnosis for this admission?: Yes (3) Weakness Is this a current diagnosis for this admission?: Yes (4) COPD (chronic obstructive pulmonary disease) Qualifiers: Emphysema type: unspecified Is this a current diagnosis for this admission?: Yes (5) Coronary artery disease Qualifiers: Coronary Disease-Associated Artery/Lesion type: [place] artery Associated angina: without angina Is this a current diagnosis for this admission?: Yes (6) GERD (gastroesophageal reflux disease) Qualifiers: Esophagitis presence: without esophagitis Is this a current diagnosis for this admission?: Yes (7) HLD (hyperlipidemia) Qualifiers: Hyperlipidemia type: unspecified Is this a current diagnosis for this admission?: Yes (8) Hypertension Qualifiers: Hypertension type: essential hypertension Is this a current diagnosis for this admission?: Yes (9) YELITZA (obstructive sleep apnea) Is this a current diagnosis for this admission?: Yes - Time Time Spent with patient: 15-24 minutes Level of Care: IMCU Medications reviewed and adjusted accordingly: Yes Anticipated discharge: Other Anticipated DC Timeframe: Other - Plan Summary Plan Summary: Continues to current medications get the physical therapy evaluations patients follow with the Dr. KAN hopefully discharge next 24 hours
[2020-10-02] MEDS ORDERED: LEVOFLOXACIN 500 MG TABLET PO SCH (10:00)
[2020-10-02] MEDS: FAMOTIDINE 20 MG TABLET PO SCH ×2 (10:58→21:25)
[2020-10-02] MEDS: FUROSEMIDE 40 MG TABLET PO SCH (10:59)
[2020-10-02] MEDS: VERAPAMIL HCL 240 MG TABLET.SA PO SCH (10:59)
[2020-10-02] MEDS: ENOXAPARIN SODIUM INJ 40 MG/0.4 ML DISP.SYRIN SUBCUT SCH (11:00)
[2020-10-02] MEDS: FLUTICASONE NASAL SPRAY 50 MCG/SPRY 120 SPRAY/16 GM NASL SCH (11:00)
--- NOTE | 2020-10-02 16:23 | Progress Note ---
Provider Note Provider Note: CARDIOLOGY PROGRESS NOTE by Dr. Sheila Florentino on 10/02/2020. SUBJECTIVE: The patient denies any chest pain or discomfort. There is no increased shortness of breath. The patient is comfortable on nasal oxygen. There is no palpitations. There is no PND orthopnea or leg edema. The patient's troponin is trending down. She is tolerating amlodipine well. Physical EXAMINATION: The patient is mildly overweight. Appears to be chronically ill. But in no acute distress. Selected Entries 10/02/20 07:40 Temperature 98.2 F Temperature Oral Source Pulse Rate 97 Respiratory 17 Rate Blood Pressure 127/78 H Blood Pressure 94 Mean BP Location Left Arm BP Position Sitting O2 Sat by Pulse 96 Oximetry Oxygen Flow 2.00 Rate Oxygen Delivery Nasal Cannula Method HEAD: Is atraumatic normocephalic. EYES: Pupils equal round regular reactive light accommodation. HEENT is negative. NECK: Supple. There is no JVD. Carotids are equal there is no bruits. There is no lymphadenopathy. LUNGS: There is diminished air entry prolonged expiration. There is hyperresonance on percussion. Otherwise there is no rhonchi or wheezing. Few dry crackles in both the bases. No evidence of rales of CHF. HEART: S1-S2 is heard. There is no S3 gallop. There is no S4 gallop. There is systolic murmur left sternal border and the apex there is no rub. ABDOMEN: Is soft and mildly obese. There is no hepatosplenomegaly. Bowel sounds well heard. EXTREMITIES: There is diminished femorals without bruits. Leg pulses are well felt. There is trace pedal edema. There is no DVT or cellulitis. There is no calf tenderness. BUSINESS ANALYTICS DIRECTOR: The patient is conscious awake alert oriented x3 with no focal deficit. PSYCHIATRIC: Patient judgment insight are intact her affect is normal. Labs- All tests 24 hr 10/02/20 10/02/20 10/02/20 01:00 01:00 04:20 WBC 7.2 RBC 3.84 Hgb 10.6 L Hct 32.8 L MCV 85 MCH 27.6 MCHC 32.3 RDW 17.3 H Plt Count 164 Lymph % (Auto) 14.6 [place] % (Auto) 8.7 Eos % (Auto) 4.8 Baso % (Auto) 0.7 Absolute Neuts (auto) 5.1 Absolute Lymphs (auto) 1.0 Absolute Monos (auto) 0.6 Absolute Eos (auto) 0.3 Absolute Basos (auto) 0.0 Seg Neutrophils % 71.2 Magnesium Creatine Kinase 123 CK-MB (CK-2) 1.56 Troponin I 0.404 NT-Pro-B Natriuret Pep 10/02/20 10/02/20 04:20 04:20 WBC RBC Hgb Hct MCV MCH MCHC RDW Plt Count Lymph % (Auto) [place] % (Auto) Eos % (Auto) Baso % (Auto) Absolute Neuts (auto) Absolute Lymphs (auto) Absolute Monos (auto) Absolute Eos (auto) Absolute Basos (auto) Seg Neutrophils % Magnesium 2.0 Creatine Kinase CK-MB (CK-2) Troponin I NT-Pro-B Natriuret Pep [address] 10/01/20 00:00 IMPRESSION: Chronic elevation of the right hemidiaphragm and atelectasis. No acute findings. Knee X-Ray 10/01/20 00:00 IMPRESSION: No radiographic evidence for acute fracture at the right knee or left knee. Interval worsening at the degenerative changes at the bilateral knees. Small bilateral joint effusions. Diffuse soft tissue edema. Head CT 10/01/20 04:12 IMPRESSION: Atrophy and chronic small vessel ischemic changes with no acute intracranial abnormality. Chest X-Ray 10/01/20 04:14 IMPRESSION: Chronic findings as above with no acute disease. Pelvis X-Ray 10/01/20 04:15 IMPRESSION: No acute bony abnormality. IMPRESSION/RECOMMENDATION: 1. Elevated troponin levels secondary to supply demand mismatch/type II MA. No evidence of non-ST relation MA. Elevated troponin . Patient probably has chronically elevated troponin versus this being secondary to lab interference due to heterophile antibodies. Hence will not treat this acute coronary syndrome. 2. Mild hypokalemia: The patient's potassium has been replaced. 3.Chronic respiratory failure: Continue current treatment. No acute process at present. 4. COPD.: Continue bronchodilators steroids and antibiotics. No acute exacerbation of COPD. 5. Moderate pulmonary hypertension by recent echo. The patient is tolerating the amlodipine 2.5 mg p.o. twice daily that was started yesterday. 6. Obstructive sleep apnea: Patient noncompliant to CPAP/BiPAP. This is in spite of repeated reinforcement describing the benefits of wearing CPAP/BiPAP. 7. Hypertension: Continue current medication blood pressure well controlled. Medications reviewed. Medical regimen management plan discussed with attending provider on the case. Medical decision making is of moderate complexity. Case discussed with the patient and the patient's daughter. Will sign off and follow the patient in the office. This was discussed with Dr. Gray.
[2020-10-02] MEDS: MONTELUKAST SODIUM 10 MG TABLET PO SCH (21:25)
[2020-10-02] MEDS: ATORVASTATIN CALCIUM 80 MG TABLET PO SCH (21:25)
[2020-10-03] MEDS: LEVOTHYROXINE SODIUM 0.088 MG TABLET PO SCH (05:30)
[2020-10-03 05:54] LABS: ABSOLUTE BASOPHILS # (AUTO) 0.1 10^3/uL (0.0-0.2); ABSOLUTE EOSINOPHILS # (AUTO) 0.4 10^3/uL (0.0-0.6); ABSOLUTE LYMPHOCYTES (AUTO) 1.3 10^3/uL (0.5-4.7); ABSOLUTE MONOCYTES (AUTO) 0.7 10^3/uL (0.1-1.4); ABSOLUTE NEUT (AUTO) 5.4 10^3/uL (1.7-8.2); BASOPHILS % (AUTO) 0.8 % (0-2); EOSINOPHILS % (AUTO) 5.2 % (0-6); HEMATOCRIT 33.2 % (36.0-47.0); HEMOGLOBIN 10.9 g/dL (12.0-15.5); LYMPHOCYTES % (AUTO) 16.4 % (13-45); MEAN CORPUSCULAR HEMOGLOBIN 27.9 pg (27.0-33.4); MEAN CORPUSCULAR HGB CONC 32.9 g/dL (32.0-36.0); MEAN CORPUSCULAR VOLUME 85 fl (80-97); MONOCYTES % (AUTO) 8.5 % (3-13); PLATELET COUNT 169 10^3/uL (150-450); RED BLOOD COUNT 3.92 10^6/uL (3.72-5.28); RED CELL DISTRIBUTION WIDTH 17.5 % (11.5-14.0); SEGMENTED NEUTROPHILS % (AUTO) 69.1 % (42-78); TOTAL CELLS COUNTED % (AUTO) 100 %; WHITE BLOOD COUNT 7.8 10^3/uL (4.0-10.5)
[2020-10-03] MEDS: IPRATROPIUM/ALBUTEROL 0.5-2.5 MG/3 ML AMPUL NEB SCH (08:01)
[2020-10-03] MEDS: AMLODIPINE BESYLATE 2.5 MG TABLET PO SCH (09:13)
[2020-10-03] MEDS: VERAPAMIL HCL 240 MG TABLET.SA PO SCH (09:14)
[2020-10-03] MEDS: FUROSEMIDE 40 MG TABLET PO SCH (09:14)
[2020-10-03] MEDS: ENOXAPARIN SODIUM INJ 40 MG/0.4 ML DISP.SYRIN SUBCUT SCH (09:14)
[2020-10-03] MEDS: FAMOTIDINE 20 MG TABLET PO SCH (09:14)
[2020-10-03] MEDS: FLUTICASONE NASAL SPRAY 50 MCG/SPRY 120 SPRAY/16 GM NASL SCH (09:14)
--- NOTE | 2020-10-03 09:31 | PDOC DISCHARGE SUMMARY ---
Impression - Admit/DC Date/PCP Admission Date/Primary Care Provider: 10/01/20 10:21 TARYN GARCIA MD Discharge Date: 10/03/20 - Discharge Diagnosis (1) Acute and chronic respiratory failure Is this a current diagnosis for this admission?: Yes (2) Troponin level elevated Is this a current diagnosis for this admission?: Yes (3) Weakness Is this a current diagnosis for this admission?: Yes (4) COPD (chronic obstructive pulmonary disease) Is this a current diagnosis for this admission?: Yes (5) Coronary artery disease Is this a current diagnosis for this admission?: Yes (6) GERD (gastroesophageal reflux disease) Is this a current diagnosis for this admission?: Yes (7) HLD (hyperlipidemia) Is this a current diagnosis for this admission?: Yes (8) Hypertension Is this a current diagnosis for this admission?: Yes (9) YELITZA (obstructive sleep apnea) Is this a current diagnosis for this admission?: Yes - Additional Information Discharge Diet: Cardiac Discharge Activity: Activity As Tolerated Referrals: KAT BARROW MD [ACTIVE STAFF] - 10/11/20 2:30 pm TARYN GARCIA MD [Primary Care Provider] - 10/09/20 9:00 am Home Medications: Albuterol Sulfate [Proair HFA Inhalation Aerosol 8.5 gm MDI] 2 puff IH Q4HP PRN 10/01/20 Atorvastatin Calcium [Lipitor 80 mg Tablet] 80 mg PO QHS 10/01/20 Fluticasone Propionate [Flonase Nasal [place] 50 Mcg/[place] 16 gm] 1 spray NS DAILY 10/01/20 Furosemide [Lasix] 40 mg PO DAILY 10/01/20 Levothyroxine Sodium [Synthroid 0.088 mg Tablet] 88 mcg PO DAILY 10/01/20 Montelukast Sodium [Singulair 10 mg Tablet] 10 mg PO QHS 10/01/20 Pantoprazole Sodium 40 mg PO DAILY 10/01/20 Verapamil HCl [Verapamil ER] 240 mg PO QAM 10/01/20 History of Present Illiness History of Present Illness: MAURICIO SINGH is a 79 year old female This is a 79-year-old female with a significant history of the chronic respiratory failure on oxygen dependent COPD congestive heart failure hypertensions hyperlipidemia morbid obesity came to the emergency department with a complaining of for falling and the leg just gave out and patient is feeling weak Patient's denied any chest pain no short of breath no cough no congestions no contact with any Covid In the emergency department patient's have a blood work done was all stable except the troponin was elevated Patient have a cardiac cath done in 2018 did not show any disease patient have a nuclear imaging was done [address] Morrell was not showing any myocardial infections at that time Patient is currently denied any chest pain no short of breath Patient initial CT head was negative also At this point we decided to admit the patient's because of the weakness falling and elevated troponin to further evaluations Hospital Course Hospital Course: This 79-year-old female admitting in the hospital because of the weakness in the fall with a complaint of right knee pain CT of the head was negative CT of the chest was negative for any acute findings cardiac enzyme was elevated seen by the cardiology and suggest there is no acute coronary syndromes Patient have a persistent elevated troponin patient have a cardiac cath done 2 years back nuclear medicine stress test was done last year was all negative Denied any chest pain no short of breath no fever no chills Patient's x-ray of the knee was negative for any acute finding except arthritis with the swelling Patient's walk with the physical therapy discharge home with the stable conditions continues the home health physical therapy follow outpatients orthopedic surgery for further evaluate Cussed with the patient's daughter about the fall precautions Due to the advanced age oxygen dependent severe arthritis patients get a benefit with the walker with the wheel and patient also get a benefit with the bedside commode to prevent any fall Physical Exam Vital Signs: Temp Pulse Resp BP Pulse Ox 97.9 F 78 17 119/78 94 10/02/20 23:11 10/03/20 07:00 10/02/20 23:11 10/02/20 23:11 10/03/20 00:29 Intake & Output 10/02/20 10/03/20 10/04/20 06:59 06:59 06:59 Intake Total 1160 1250 Output Total 600 Balance 560 1250 Weight 89.8 kg 89.9 kg General appearance: PRESENT: no acute distress, well-developed, well-nourished Head exam: PRESENT: atraumatic, normocephalic Eye exam: PRESENT: conjunctiva pink, EOMI, PERRLA. ABSENT: scleral icterus Ear exam: PRESENT: normal external ear exam Mouth exam: PRESENT: moist, tongue midline Neck exam: ABSENT: carotid bruit, JVD, lymphadenopathy, thyromegaly Respiratory exam: PRESENT: clear to auscultation phillip. ABSENT: rales, rhonchi, wheezes Cardiovascular exam: PRESENT: RRR. ABSENT: diastolic murmur, rubs, systolic murmur Pulses: PRESENT: normal dorsalis pedis pul Vascular exam: PRESENT: normal capillary refill GI/Abdominal exam: PRESENT: normal bowel sounds, soft. ABSENT: distended, guarding, mass, organolmegaly, rebound, tenderness Rectal exam: PRESENT: deferred Extremities exam: PRESENT: full ROM. ABSENT: calf tenderness, clubbing, pedal edema Neurological exam: PRESENT: alert, awake, oriented to person, oriented to place, oriented to time, oriented to situation, CN II-XII grossly intact. ABSENT: motor sensory deficit Psychiatric exam: PRESENT: appropriate affect, normal mood. ABSENT: homicidal ideation, suicidal ideation Skin exam: PRESENT: dry, intact, warm. ABSENT: cyanosis, rash Results Laboratory Results: WBC 7.8 10^3/uL (4.0-10.5) 10/03/20 04:14 RBC 3.92 10^6/uL (3.72-5.28) 10/03/20 04:14 Hgb 10.9 g/dL (12.0-15.5) L 10/03/20 04:14 Hct 33.2 % (36.0-47.0) L 10/03/20 04:14 MCV 85 fl (80-97) 10/03/20 04:14 MCH 27.9 pg (27.0-33.4) 10/03/20 04:14 MCHC 32.9 g/dL (32.0-36.0) 10/03/20 04:14 RDW 17.5 % (11.5-14.0) H 10/03/20 04:14 Plt Count 169 10^3/uL (150-450) 10/03/20 04:14 Lymph % (Auto) 16.4 % (13-45) 10/03/20 04:14 Long % (Auto) 8.5 % (3-13) 10/03/20 04:14 Eos % (Auto) 5.2 % (0-6) 10/03/20 04:14 Baso % (Auto) 0.8 % (0-2) 10/03/20 04:14 Absolute Neuts (auto) 5.4 10^3/uL (1.7-8.2) 10/03/20 04:14 Absolute Lymphs (auto) 1.3 10^3/uL (0.5-4.7) 10/03/20 04:14 Absolute Monos (auto) 0.7 10^3/uL (0.1-1.4) 10/03/20 04:14 Absolute Eos (auto) 0.4 10^3/uL (0.0-0.6) 10/03/20 04:14 Absolute Basos (auto) 0.1 10^3/uL (0.0-0.2) 10/03/20 04:14 Seg Neutrophils % 69.1 % (42-78) 10/03/20 04:14 Sodium 140.8 mmol/L (137-145) 10/01/20 12:42 Potassium 3.8 mmol/L (3.6-5.0) 10/01/20 12:42 Chloride 88 mmol/L (98-107) L 10/01/20 12:42 Carbon Dioxide 49 mmol/L (22-30) H* 10/01/20 12:42 Anion Gap 4 (5-19) L 10/01/20 12:42 BUN 24 mg/dL (7-20) H 10/01/20 12:42 Creatinine 0.89 mg/dL (0.52-1.25) 10/01/20 12:42 Est GFR ( Amer) > 60 (>60) 10/01/20 12:42 Est GFR (MDRD) Non-Af > 60 (>60) 10/01/20 12:42 Glucose 104 mg/dL (75-110) 10/01/20 12:42 Calcium 10.0 mg/dL (8.4-10.2) 10/01/20 12:42 Magnesium 2.0 mg/dL (1.6-2.3) 10/03/20 04:14 Total Bilirubin 0.4 mg/dL (0.2-1.3) 10/01/20 04:55 Direct Bilirubin 0.1 mg/dL (0.0-0.4) 10/01/20 04:55 Neonat Total Bilirubin Not Reportable 10/01/20 04:55 Neonat Direct Bilirubin Not Reportable 10/01/20 04:55 Neonat Indirect Bili Not Reportable 10/01/20 04:55 AST 34 U/L (14-36) 10/01/20 04:55 ALT 19 U/L (<35) 10/01/20 04:55 Alkaline Phosphatase 108 U/L (38-126) 10/01/20 04:55 Creatine Kinase 123 U/L (30-135) 10/02/20 01:00 CK-MB (CK-2) 1.56 ng/mL (<4.55) 10/02/20 01:00 Troponin I 0.404 ng/mL 10/02/20 01:00 NT-Pro-B Natriuret Pep 840 pg/mL (<450) H 10/03/20 04:14 Total Protein 6.6 g/dL (6.3-8.2) 10/01/20 04:55 Albumin 3.5 g/dL (3.5-5.0) 10/01/20 04:55 TSH 0.91 uIU/mL (0.47-4.68) 10/01/20 12:42 Free T4 1.15 ng/dL (0.78-2.19) 10/01/20 12:42 Free T3 pg/mL 2.36 pg/mL (2.77-5.27) L 10/01/20 12:42 Urine Color YELLOW 10/01/20 04:11 Urine Appearance CLEAR 10/01/20 04:11 Urine pH 6.0 (5.0-9.0) 10/01/20 04:11 Ur Specific [place] 1.013 10/01/20 04:11 Urine Protein NEGATIVE mg/dL (NEGATIVE) 10/01/20 04:11 Urine Glucose (UA) NEGATIVE mg/dL (NEGATIVE) 10/01/20 04:11 Urine Ketones NEGATIVE mg/dL (NEGATIVE) 10/01/20 04:11 Urine Blood NEGATIVE (NEGATIVE) 10/01/20 04:11 Urine Nitrite NEGATIVE (NEGATIVE) 10/01/20 04:11 Urine Bilirubin NEGATIVE (NEGATIVE) 10/01/20 04:11 Urine Urobilinogen 2.0 mg/dL (<2.0) H 10/01/20 04:11 Ur Leukocyte Esterase TRACE (NEGATIVE) H 10/01/20 04:11 Urine WBC (Auto) 3 /HPF 10/01/20 04:11 Urine RBC (Auto) 1 /HPF 10/01/20 04:11 U Hyaline Cast (Auto) 6 /LPF 10/01/20 04:11 Squamous Epi Cells Auto 2 /HPF 10/01/20 04:11 Urine Mucus (Auto) RARE /LPF 10/01/20 04:11 Urine Ascorbic Acid NEGATIVE (NEGATIVE) 10/01/20 04:11 10/01/20 10/01/20 10/01/20 04:55 08:26 12:42 CK-MB (CK-2) 2.22 Troponin I 0.325 0.388 0.433 NT-Pro-B Natriuret Pep 10/01/20 10/02/20 10/02/20 19:00 01:00 04:20 CK-MB (CK-2) 1.73 1.56 Troponin I 0.418 0.404 NT-Pro-B Natriuret Pep 1030 H 10/03/20 04:14 CK-MB (CK-2) Troponin I NT-Pro-B Natriuret Pep 840 H Impressions: Chest CT 10/01/20 00:00 IMPRESSION: Chronic elevation of the right hemidiaphragm and atelectasis. No acute findings. Knee X-Ray 10/01/20 00:00 IMPRESSION: No radiographic evidence for acute fracture at the right knee or left knee. Interval worsening at the degenerative changes at the bilateral knees. Small bilateral joint effusions. Diffuse soft tissue edema. Head CT 10/01/20 04:12 IMPRESSION: Atrophy and chronic small vessel ischemic changes with no acute intracranial abnormality. Chest X-Ray 10/01/20 04:14 IMPRESSION: Chronic findings as above with no acute disease. Pelvis X-Ray 10/01/20 04:15 IMPRESSION: No acute bony abnormality. Plan Time Spent: Greater than 30 Minutes - Follow-up with the outpatients orthopedic Stroke Is this a Stroke Patient?: No Acute Heart Failure Is this a Heart Failure Patient?: No
[2020-10-03 13:03] VITALS: BP 127/70
--- NOTE | 2020-11-07 11:00 | Progress Note ---
Provider Note Provider Note: Patient is weakness is coming from the chronic respiratory failure no sign of any infections
== END 2020-10-03 12:50 | disposition home or self-care (01) | DRG 189 ==
LOC: ER 03:25 → EH 10:21 → 4N 12:11
PROVIDERS: ADMIT Family Medicine; ATTEND Family Medicine
DX: J96.12 Chronic respiratory failure with hypercapnia (principal); I21.A1 Myocardial infarction type 2; J44.9 Chronic obstructive pulmonary disease, unspecified; K21.9 Gastro-esophageal reflux disease without esophagitis; E78.5 Hyperlipidemia, unspecified; I10 Essential (primary) hypertension; G47.33 Obstructive sleep apnea (adult) (pediatric); I25.10 Atherosclerotic heart disease of native coronary artery without angina pectoris; E66.01 Morbid (severe) obesity due to excess calories; E03.9 Hypothyroidism, unspecified; I27.20 Pulmonary hypertension, unspecified; E87.6 Hypokalemia; I45.10 Unspecified right bundle-branch block; E86.0 Dehydration; M25.562 Pain in left knee; M25.561 Pain in right knee; W19.XXXA Unspecified fall, initial encounter; Y92.009 Unspecified place in unspecified non-institutional (private) residence as the place of occurrence of the external cause; Z79.899 Other long term (current) drug therapy; Z79.890 Hormone replacement therapy; Z99.81 Dependence on supplemental oxygen; Z91.19 Patient's noncompliance with other medical treatment and regimen; Z87.891 Personal history of nicotine dependence; Z88.6 Allergy status to analgesic agent; Z79.82 Long term (current) use of aspirin
CPT/HCPCS: 36415; 70450; 71045; 71250; 72170; 80053; 81001; 82550; 82553; 83735; 83880; 84439; 84443; 84481; 84484; 85025; 87040; 87086; 93005; 93010; 94640; 96360; 96361; 99285; J0696; J1650; J3480; J3490; J7040; J8499

== ENCOUNTER 2020-12-07 13:14 | Day surgery (SDC) | payer MEDICARE, MEDICAID ==
[~2020-12-07 13:14] MED LIST changes: +CHONDR SU A NA/HYALUR INTRAOC KIT (SURGICARE) ONE; +EPINEPHRINE INJ/PF 1 MG/1 ML AMPULE ONE; +KETOROLAC TROMETHAMINE 0.45% 4 DROP/0.4 ML DROPERETTE OS PRN; +LIDOCAINE 1%/PHENYLEPHRINE 1.5% 1 ML VIAL ONE; -PROPOFOL INJ 200 MG/20 ML VIAL IV ONE
[2020-12-07] MEDS ORDERED: MIDAZOLAM 2 MG/2 ML INJ ONE (13:25)
[2020-12-07] MEDS: TETRACAINE HCL 0.5% OPH SOLN 4 ML OS PRN ×3 (14:18→14:39)
[2020-12-07] MEDS: TROPICAMIDE 1% OPH SOLN 15 ML OS PRN ×3 (14:18→14:36)
[2020-12-07] MEDS: BESIFLOXACIN HCL 0.6% OPH SUSP 5 ML BOTTLE OS PRN ×4 (14:19→15:04)
[2020-12-07] MEDS: CYCLOPENTOLATE 0.2%/PHENYLEPHRINE 1% OPH SOLN 2 ML OS PRN ×3 (14:19→14:36)
[2020-12-07] MEDS: DORZOLAMIDE HCL 2%/TIMOLOL MALEAT 0.5% OPH SOLN 10 ML OS PRN ×2 (15:04)
[2020-12-07] MEDS: PREDNISOLONE ACETATE 1% OPH SUSP 5 ML OS PRN ×2 (15:04)
--- NOTE | 2020-12-07 20:32 | Operative Report ---
Operative Report-[facility] Operative Report: PREOPERATIVE DIAGNOSIS: Nuclear, cortical and posterior subcapsular cataract, left eye POSTOPERATIVE DIAGNOSIS: Nuclear, cortical and posterior subcapsular cataracts, left eye PROCEDURE: Phacoemulsification and posterior chamber intraocular lens implant, left eye PROCEDURE DATE: [December 07, 2020] SURGEON: Frederic Barton MD Next SPINDLE TESTER: [Jeremiah] ANESTHESIA: Topical with IV sedation next COMPLICATIONS: None TISSUE TO PATHOLOGY: None ESTIMATED BLOOD LOSS: None INDICATION FOR SURGERY: [Ms. Bradshaw is a 80 year old female] Who presents to our clinic complaining of difficulty seeing, to read and drive due to blurry vision in both eyes. On examination, she was found to have best corrected visual acuity of [20/50] in the left eye. Ophthalmoscopy revealed a [+3] nuclear, [+3] corneal degeneration, [+1] posterior subcapsular cataract in the left eye with normal appearing cornea, vitreous, retina and optic nerve. I discussed the findings of the exam with the patient. We discussed the risks, benefits and alternatives of cataract extraction and intraocular lens implant in the left eye as a means of improving her vision. Risks that were discussed with the patient include infection, bleeding, retinal detachment and possible need for additional surgery. The patient understands that she may need to wear glasses after surgery. After discussion, the patient indicated her interest in having this procedure performed by signing an informed witness consent form. REPORT OF PROCEDURE: On the day of surgery, the patient was given a topical application to the left eye to consist of drop of Tetracaine 0.5%, tropicamide 1%, Cyclomidril, Besivance 0.6% and Acular 0.45%. The patient was then taken to the operating room in a supine position in a standard eye bed. Intravenous sedation was administered and she was prepped and draped in the standard fashion. A timeout was performed to confirm the surgical site. Attention was directed to the left eye where a paracentesis was created at the 5:30 position at the corneal limbus with a 15 degree blade. The anterior chamber was filled with 0.3 mL of 1% methylparaben free lidocaine and after 30 seconds the anterior chamber was filled with viscoelastic material. A 3 plane corneal incision was then made at the 3 o'clock position at the cornea limbus with a keratome. A continuous curvilinear capsulorrhexis was then made in the anterior capsule of the lens with a cystotome. The lens was hydrodissected using balanced saline solution. The lens nucleus was then removed by phacoemulsification using the stop and chop technique. CDE [18.35 ]. The remaining cortical material was then removed from the posterior capsular bag using irrigation and aspiration. The posterior capsule bag was filled with viscoelastic material and a lens implant was inserted into the posterior capsule bag. I have chosen for this case is a one piece acrylic lens from [employer] model [[id number]], serial number [[id number]], lens power [23.5]. The lens was removed from its package, inspected and found to be free of defects it was loaded into a Eldred D inserte r. The beef cattle farmer was passed through the temporal wound and the lens was advanced into the posterior capsular bag. The lens implant was centered in the posterior capsular bag with the [place] spatula the viscoelastic material was removed from the eye using irrigation and aspiration. The wounds were closed by stromal hydration and they were tested with the Weck-Pura sponges and found to have no leaks. Intraocular pressure was assessed by manual palpitation found to be with in the physiologic range. The drape and speculum were removed. Drops of Durezol, Combigan and gatifloxacin were instilled in the left eye. The patient was then taken to the recovery room in good condition. The patient tolerated the procedure very well. The patient was given a prescription for gatifloxacin, Durezol and Ilervo to use every 2 hours while awake today. She will return my clinic tomorrow for follow-up evaluation.
== END 2020-12-07 15:52 | disposition home or self-care (01) ==
LOC: SC 13:14
PROVIDERS: ATTEND Ophthalmology
DX: H25.812 Combined forms of age-related cataract, left eye (principal); J44.9 Chronic obstructive pulmonary disease, unspecified; I10 Essential (primary) hypertension; E78.00 Pure hypercholesterolemia, unspecified; E03.9 Hypothyroidism, unspecified; Z79.899 Other long term (current) drug therapy; Z87.891 Personal history of nicotine dependence; E66.9 Obesity, unspecified; Z99.81 Dependence on supplemental oxygen
CPT/HCPCS: 66984; 00142; V2632; J2250; J3490 ×2; A9270; J0171; 142